=== PATIENT | female | born 1955 | race Caucasian/White ===

== ENCOUNTER → 2020-03-11 10:34 | Outpatient (BNVA) | payer MEDICARE, SELFPAY | PROVIDERS: PCP Internal Medicine; Referring Provider Internal Medicine; Visit Provider Internal Medicine | DX: E16.2 Hypoglycemia, unspecified (principal); E55.9 Vitamin D deficiency, unspecified; Z98.84 Bariatric surgery status; Z86.39 Personal history of other endocrine, nutritional and metabolic disease | CPT/HCPCS: 99202 ==

== ENCOUNTER 2020-03-12 07:08 | Outpatient (REF) | payer MEDICARE, BC, SELFPAY ==
[2020-03-12 08:22] LABS: Glucose Fasting 106 mg/dL (60-99)
[2020-03-12 08:29] LABS: Anion Gap 12 (12-20); Blood Urea Nitrogen 14 mg/dL (9-16); Calcium 8.5 mg/dL (8.4-10.2); Carbon Dioxide 30 mmol/L (22-29); Chloride 99 mmol/L (96-108); Estimated Glomerular Filt Rate > 60; Glucose Fasting 105 mg/dL (60-99); Potassium 4.2 mmol/l (3.3-5.1); Sodium 137 mmol/L (135-145)
[2020-03-12 08:52] LABS: Free T4 (Free Thyroxine) 1.01 ng/dL (0.71-1.85); Vitamin D 25-OH Total 56.9 ng/mL (>30)
[2020-03-12 10:46] LABS: Glucose 1 Hour 343 mg/dL
[2020-03-12 11:12] LABS: Glucose 2 Hour 71 mg/dL
[2020-03-12 12:34] LABS: Glucose 4 Hour 76 mg/dL
[2020-03-13 12:01] LABS: DHEA Sulfate 80 mcg/dL (12-133)
[2020-03-14 00:52] LABS: C Peptide 0.84 ng/mL (0.80-3.85)
[2020-03-15 19:46] LABS: Chromogranin A 74 ng/mL (25-140)
[2020-03-16 12:17] LABS: Insulin Level Total 2.5 uIU/mL
[2020-03-16 18:32] LABS: Adrenocorticotropic Hormone 27 pg/mL (6-50)
[2020-03-17 23:11] LABS: Proinsulin 5.7 pmol/L (< OR = 18.8)
[2020-03-18 04:06] LABS: Beta-Hydroxybutyrate 0.05 mmol/L
[2020-03-18 14:42] LABS: Insulinoma associated 2 aatb <5.4 U/mL (<5.4)
[2020-03-18 17:27] LABS: Insulin Auto Antibody <0.4 U/mL (<0.4)
[2020-03-23 19:09] LABS: Insulin Growth Factor 2 463 ng/mL (267-616)
[2020-03-24 12:02] LABS: Chlorpropamide None Detected; Glimepiride None Detected; Glipizide None Detected; Glyburide None Detected; Nateglinide None Detected; Pioglitazone None Detected; Repaglinide None Detected; Rosiglitazone None Detected; Tolazamide None Detected; Tolbutamide None Detected
== END 2020-03-12 07:09 | disposition home or self-care (01) ==
LOC: HO.LAB 07:08
PROVIDERS: PCP Internal Medicine; Visit Provider Internal Medicine
DX: E16.2 Hypoglycemia, unspecified (principal); E55.9 Vitamin D deficiency, unspecified; Z86.39 Personal history of other endocrine, nutritional and metabolic disease
CPT/HCPCS: 36415; 80048; 80337; 82010; 82024; 82306; 82533; 82627; 82952; 83525; 83789; 84206; 84439; 84443; 84681; 86316; 86337

== ENCOUNTER → 2020-04-27 08:32 | Outpatient (BNVA) | payer MEDICARE, BC, SELFPAY | PROVIDERS: PCP Internal Medicine; Referring Provider Internal Medicine; Visit Provider Internal Medicine | DX: Z13.89 Encounter for screening for other disorder (principal) | CPT/HCPCS: Q3014 ==

== ENCOUNTER 2020-07-13 16:41 | Outpatient (REF) | payer MEDICARE, BC, SELFPAY | END 2020-07-13 16:42 | disposition home or self-care (01) | LOC: HO.LNP 16:41 | PROVIDERS: Visit Provider Hospitalist | DX: Z20.822 Contact with and (suspected) exposure to COVID-19 (principal) | CPT/HCPCS: U0003; U0005 ==

== ENCOUNTER → 2020-08-19 07:34 | Outpatient (BNVA) | payer MEDICARE, BC, SELFPAY | PROVIDERS: PCP Internal Medicine; Visit Provider Internal Medicine | DX: E16.2 Hypoglycemia, unspecified (principal); E55.9 Vitamin D deficiency, unspecified; Z98.84 Bariatric surgery status; Z86.39 Personal history of other endocrine, nutritional and metabolic disease | CPT/HCPCS: 82947; 99212 ==

== ENCOUNTER 2021-02-11 08:27 | Outpatient (REF) | payer MEDICARE, BC, SELFPAY ==
[2021-02-11 10:12] LABS: Alanine Aminotransferase 36 U/L (0-31); Albumin Level 4.1 g/dL (3.5-5.0); Alkaline Phosphatase 77 U/L (39-117); Anion Gap 14 (12-20); Aspartate Amino Transferase 34 U/L (5-31); Bilirubin Total 0.5 mg/dL (0.0-1.0); Blood Urea Nitrogen 15 mg/dL (9-16); Calcium 9.5 mg/dL (8.4-10.2); Carbon Dioxide 29 mmol/L (22-29); Chloride 103 mmol/L (96-108); Estimated Glomerular Filt Rate > 60; Glucose Random 106 mg/dL (60-115); Potassium 4.5 mmol/L (3.3-5.1); Sodium 141 mmol/L (135-145); Total Protein 6.7 g/dL (6.5-8.0)
[2021-02-11 10:14] LABS: Estimated Average Glucose 117 mg/dL; Hemoglobin A1c % 5.7 %
== END 2021-02-11 08:28 | disposition home or self-care (01) ==
LOC: HO.LAB 08:27
PROVIDERS: PCP Internal Medicine; Visit Provider Internal Medicine
DX: Z86.39 Personal history of other endocrine, nutritional and metabolic disease (principal)
CPT/HCPCS: 36415; 80053; 83036

== ENCOUNTER → 2021-02-17 07:35 | Outpatient (BNVA) | payer MEDICARE, BC, SELFPAY | PROVIDERS: PCP Internal Medicine; Visit Provider Internal Medicine | CPT/HCPCS: Q3014 ==

== ENCOUNTER 2021-04-23 14:19 | Outpatient (REF) | payer MEDICARE, BC, SELFPAY ==
--- NOTE | ~2021-04-23 | XR_ITS ---
EXAMINATION: XR SHOULDER, LEFT CLINICAL INFORMATION: Pain in left shoulder. COMPARISON: None TECHNIQUE: AP external rotation, Grashey, scapular Y, and axillary views of the left shoulder. FINDINGS: Acromioclavicular Joint: Mild osteoarthritis manifested by marginal osteophytes. Glenohumeral Joint: Normal. Surrounding bone and soft tissues unremarkable. XR/XR shoulder LT min 2V IMPRESSION: Mild osteoarthritis of acromioclavicular joint.
== END 2021-04-23 14:20 | disposition home or self-care (01) ==
LOC: HO.HMGCX 14:19
PROVIDERS: PCP Internal Medicine; Visit Provider Internal Medicine
DX: M25.512 Pain in left shoulder (principal)
CPT/HCPCS: 73030

== ENCOUNTER → 2021-05-10 13:30 | Outpatient (BNVA) | payer MEDICARE, BC, SELFPAY | PROVIDERS: PCP Internal Medicine; Visit Provider Orthopaedic Surgery | DX: M25.512 Pain in left shoulder (principal); Z86.39 Personal history of other endocrine, nutritional and metabolic disease | CPT/HCPCS: 20610; 99212; J1100 ==

== ENCOUNTER 2021-07-08 08:00 | Outpatient (RCR) | payer MEDICARE, BC, SELFPAY ==
--- NOTE | 2021-05-26 17:40 | MHC.PT.EP ---
[facility] [place] [facility] [place] [facility] [place] [facility] [address] [phone] F: [phone] F: [phone] F: [phone] F: [phone] Physical Therapy Plan of Care Date of Evaluation: Date of Surgery: Diagnosis: Pain in L shoulder Assessment: Pt is a 65 y/o female referred to PT for eval and treat of L shoulder pain who presents with L shoulder dysfunction resulting in decreased tolerance and ability to perform reaching a high shelf, dressing pullovers, performing fitness activities, reaching her back pocket/ dressing and carrying objects of weight as well as disturbed sleep secondary to decreased UE strength, pain at L shoulder end range ROM, decreased posture, increased tissue tension and pain. Pt is deemed an appropriate candidate to receive skilled PT in order to address her physical limitations to improve her functional ability. Frequency and Duration: The patient will be seen 2x/ wk x 4 wks. Short Term Goals: Initiate HEP. 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 Pt will be able to place 2# object on high shelf with managed Sx. Improve SPADI questionnaire to by at least 13 points in order to demonstrate improved function. Treatment Plan: Modalities to reduce pain, spasms and effusion. Manual therapy to restore motion and function. Therapeutic exercise to improve strength and flexibility. Neuromuscular re-education for posture and balance. Therapeutic activities to return to functional activities of daily living. Electronically signed by: Alberto Rios PT Please sign and return to therapist. Thank you for your referral.
== END 2021-07-08 09:24 | disposition home or self-care (01) ==
LOC: HO.PTCHIC 08:00
PROVIDERS: PCP Internal Medicine; Visit Provider Orthopaedic Surgery
DX: M25.512 Pain in left shoulder (principal)
CPT/HCPCS: 97110; 97140; 97150; 97161

== ENCOUNTER 2021-10-19 06:42 | Outpatient (REF) | payer MEDICARE, BC, SELFPAY ==
[2021-10-19 07:31] LABS: Estimated Average Glucose 120 mg/dL; Hemoglobin A1c % 5.8 %
[2021-10-19 08:28] LABS: Alanine Aminotransferase 43 U/L (0-31); Albumin Level 4.1 g/dL (3.5-5.0); Alkaline Phosphatase 82 U/L (39-117); Anion Gap 12 (12-20); Aspartate Amino Transferase 36 U/L (5-31); Bilirubin Total 0.4 mg/dL (0.0-1.0); Blood Urea Nitrogen 19 mg/dL (9-16); Calcium 9.2 mg/dL (8.4-10.2); Carbon Dioxide 30 mmol/L (22-29); Chloride 102 mmol/L (96-108); Estimated Glomerular Filt Rate > 60; Glucose Random 101 mg/dL (60-115); Potassium 4.8 mmol/L (3.3-5.1); Sodium 139 mmol/L (135-145); Total Protein 6.8 g/dL (6.5-8.0)
[2021-10-19 08:36] LABS: Vitamin D 25-OH Total 55.4 ng/mL (>30)
== END 2021-10-19 06:43 | disposition home or self-care (01) ==
LOC: HO.LAB 06:42
PROVIDERS: PCP Internal Medicine; Visit Provider Internal Medicine
DX: E55.9 Vitamin D deficiency, unspecified (principal); E16.2 Hypoglycemia, unspecified
CPT/HCPCS: 36415; 80053; 82306; 83036

== ENCOUNTER → 2021-10-25 09:55 | Outpatient (BNVA) | payer MEDICARE, BC, SELFPAY | PROVIDERS: PCP Internal Medicine; Visit Provider Internal Medicine | DX: E16.2 Hypoglycemia, unspecified (principal); E55.9 Vitamin D deficiency, unspecified; Z86.39 Personal history of other endocrine, nutritional and metabolic disease; Z98.84 Bariatric surgery status | CPT/HCPCS: Q3014 ==

== ENCOUNTER 2022-04-19 06:27 | Outpatient (REF) | payer MEDICARE, BC, SELFPAY ==
[2022-04-19 07:50] LABS: Estimated Average Glucose 117 mg/dL; Hemoglobin A1c % 5.7 %
[2022-04-19 07:58] LABS: Alanine Aminotransferase 39 U/L (0-31); Albumin Level 4.5 g/dL (3.5-5.0); Alkaline Phosphatase 76 U/L (39-117); Anion Gap 13 (12-20); Aspartate Amino Transferase 34 U/L (5-31); Bilirubin Total 0.5 mg/dL (0.0-1.0); Blood Urea Nitrogen 16 mg/dL (9-16); Carbon Dioxide 32 mmol/L (22-29); Chloride 100 mmol/L (96-108); Estimated Glomerular Filt Rate > 60; Glucose Random 105 mg/dL (60-115); Potassium 4.5 mmol/L (3.3-5.1); Sodium 140 mmol/L (135-145); Total Protein 7.3 g/dL (6.5-8.0)
== END 2022-04-19 06:28 | disposition home or self-care (01) ==
LOC: HO.LAB 06:27
PROVIDERS: PCP Internal Medicine; Visit Provider Internal Medicine
DX: E16.2 Hypoglycemia, unspecified (principal)
CPT/HCPCS: 36415; 80053; 83036

== ENCOUNTER → 2022-04-25 09:51 | Outpatient (BNVA) | payer MEDICARE, BC, SELFPAY | PROVIDERS: PCP Internal Medicine; Visit Provider Internal Medicine | DX: E16.2 Hypoglycemia, unspecified (principal); E55.9 Vitamin D deficiency, unspecified; Z86.39 Personal history of other endocrine, nutritional and metabolic disease; Z98.84 Bariatric surgery status | CPT/HCPCS: 99212 ==

== ENCOUNTER 2022-11-13 22:22 | Observation (INO) | payer MEDICARE, BC, SELFPAY ==
--- NOTE | ~2022-11-13 | MR_ITS ---
EXAMINATION: MR ABDOMEN WITHOUT AND WITH CONTRAST CLINICAL INFORMATION: Possible IPMN. COMPARISON: MRCP performed earlier on same day. CT abdomen/pelvis 11/14/2022. TECHNIQUE: MR abdomen was performed without and with use of 5 mL intravenous Gadavist gadolinium contrast. Postcontrast images are performed in multiphase dynamic sequences. FINDINGS: LUNG BASES: The visualized lung bases are unremarkable. LIVER, GALLBLADDER, AND BILIARY TREE: There is some degree of signal loss in the [id number] dual echo images suggesting the presence of hepatic steatosis. The liver is otherwise normal in size and shape. No discrete focal liver lesion. Cholecystectomy. Roqz-ba-okipiwgx intrahepatic and extrahepatic biliary ductal dilatation; the common bile duct measures up to 0.9 cm in diameter and the common hepatic duct measures up to 1.2 cm in diameter. No discrete choledocholithiasis, luminal narrowing or abnormal enhancement in the biliary tree. PANCREAS: Redemonstration of significant dilatation of the main pancreatic duct measuring up to 1 cm in diameter with abrupt cut-off at the level of the head/neck junction, axial image 41 series 103. The main pancreatic duct at the level of the uncinate process and head is nondilated. There is some equivocal hyperenhancement of the pancreatic parenchyma adjacent to the transition point more noticeable on the delayed postcontrast images (image 45 series 103) immediately anterior to the main portal vein to the right of the SMV. The pancreatic parenchyma surrounding the dilated main duct is atrophic. SPLEEN: Normal. ADRENAL GLANDS: Normal. KIDNEYS AND URETERS: The kidneys are normal in size, shape, and enhance symmetrically. No hydronephrosis. No perinephric stranding. GASTROINTESTINAL TRACT: No significant bowel dilatation. No ascites. ABDOMINAL WALL: No significant hernia is appreciated. LYMPH NODES: No lymphadenopathy. VASCULAR: Normal caliber abdominal aorta. OSSEOUS STRUCTURES: Marrow signal normal. MR/MR abdomen wo/w con IMPRESSION: Significant dilatation of the main pancreatic duct with abrupt cut-off at the level of the head/neck junction. There is some equivocal differential hyperenhancement of the pancreatic parenchyma adjacent to the transition point. Findings are worrisome for an underlying stricture/mass such as pancreatic adenocarcinoma leading to downstream obstruction. An additional differential consideration includes main type intraductal papillary mucinous neoplasm, as no clear enhancing extraductal mass is noted, although such an abrupt transition is somewhat atypical for this latter diagnosis. Referral to GI oncology and further evaluation with EUS is recommended. [id number] intrahepatic and extrahepatic biliary ductal dilatation is nonspecific and could be associated with post-cholecystectomy state. The main pancreatic duct at the level of the head and uncinate process is nondilated. Hepatic steatosis.
[2022-11-13 22:25] VITALS: BP 170/68; PULSE 74; O2SAT 98
[2022-11-13 22:28] VITALS: BP 151/85; PULSE 83; RESP 18; TEMP 36.7; O2SAT 97; BMI 25.1
[2022-11-14] VITALS (8 sets, daily range): BP systolic 106–166; BP diastolic 63–93; PULSE 58–95; RESP 14–20; TEMP 36.7–37; O2SAT 95–99
--- NOTE | 2022-11-14 01:24 | ED.ABDPAIN ---
HPI - Abdominal Pain General Chief Complaint: Abdominal Pain Stated Complaint: abd and back pain Time Seen by Provider: 11/14/22 00:25 Source: patient and family () Mode of arrival: ambulatory Limitations: no limitations History of Present Illness HPI narrative: 64-year-old female who presents emergency department for evaluation right upper quadrant and right flank pain. The patient states that at 20:00 hours, she had a sudden onset of right upper quadrant pain. She describes the pain is a gripping pain which was initially moderate but then became severe and was 9/10 at its worst. The pain did radiate to her back. She had associated nausea with no vomiting. She states that she did have a soft bowel movement prior to coming to the emergency department she denied fever, chills, rhinorrhea, sore throat, cough, chest pain, shortness of breath. She denied frequency, urgency or dysuria. Patient states that the pain was severe and she could not get comfortable. Patient states the pain was similar to kidney stone pain that she had 20 years prior. Surgical history is significant for gastric bypass 20 years prior, , cholecystectomy. Related Data Home Medications Medication Instructions Recorded Confirmed acetaminophen 650 mg 650 mg PO Q12H 03/11/20 07/29/22 tablet,extended release (Tylenol Arthritis Pain) calcium carbonate 600 mg calcium 600 mg PO BID 03/11/20 07/29/22 (1,500 mg) tablet glucosamine sulfate 500 mg tablet 500 mg PO BID 03/11/20 07/29/22 (Glucosamine) omega-3 fatty acids 1,000 mg 1,000 mg PO DAILY 03/11/20 07/29/22 capsule melatonin 10 mg capsule 10 mg PO BEDTIME PRN 04/27/20 07/29/22 ascorbate calcium (vitamin C) 500 500 mg PO DAILY 07/23/21 07/29/22 mg tablet multivitamin (Daily Multi-Vitamin 1 tab PO DAILY 07/23/21 07/29/22 tablet) magnesium 200 mg tablet 200 mg PO DAILY 07/29/22 07/29/22 Previous Rx's Medication Instructions Recorded nystatin 100,000 unit/gram topical 1 appl topical DAILY 30 days #30 07/29/22 cream grams acarbose 25 mg tablet 50 mg PO TID 30 days #180 tabs 11/09/22 Allergies Allergy/AdvReac Type Severity Reaction Status Date / Time ibuprofen [IBUPROFEN] Allergy Intermediate ANKLE/FOOT Verified 07/29/22 13:29 SWELLING minocycline Allergy Unknown Hives Verified 07/29/22 13:29 Review of Systems Review of Systems Yes all other systems are reviewed and are negative [facility] Past Medical History [facility] Narrative: Past medical history: Reviewed below, she also has a history of GERD and kidney stone in the past. Social history: She is , her is here in the emergency department with her. She denies tobacco use. She occasionally drinks alcohol. She denies drug use. Medical History History of diabetes mellitus Hypoglycemia Vitamin D deficiency Surgical History History of bariatric surgery Hx of section Hx of cholecystectomy Hx of colonoscopy with polypectomy Hx of repair of right rotator cuff Hx of tonsillectomy Hx of tubal ligation Family History Family History Father No problems noted. Mother No problems noted. Social History Social History Housing: House Alcohol intake: current Alcohol intake frequency: holidays/special occasions only Alcohol type: wine Patient Tobacco Use Status: Never used Tobacco Advance Directives: No Advance Directives Information Provided: Yes Current occupational status: retired Physical Exam ED Vital Signs: Vital Signs - 24 hr 11/13/22 22:28 11/14/22 00:47 11/14/22 02:15 Temperature 98.0 F 98.1 F Pulse Rate 83 83 Respiratory Rate 18 18 16 Blood Pressure 151/85 H 166/93 H Pulse Oximetry 97 97 Oxygen Delivery Method Room Air Room Air 11/14/22 02:18 Temperature Pulse Rate Respiratory Rate 14 Blood Pressure Pulse Oximetry Oxygen Delivery Method BMI result Body Mass Index 25.1 Const General: cooperative and no acute distress Orientation/consciousness: oriented to person and oriented to place Limitations: no limitations HENMT Head: Yes normal to inspection, Yes normocephalic and Yes atraumatic Ears: external ears normal General nose exam: Normal external nose present Face and sinus: Yes normal facial exam Mouth: Normal oral and palatal mucosa present Throat: Yes posterior oropharynx normal Eyes General: appearance normal, both eyes and all related structures Pupils: Equal, round and reactive pupils present Neck Neck: Yes normal visual inspection, Yes no lymphadenopathy, Yes trachea midline and Yes supple Chest Chest palpation & inspection: normal inspection of the chest and normal palpation of entire chest wall Resp Effort & Inspection: normal respiratory effort and able to speak in complete sentences Auscultation: clear to auscultation bilaterally Cardio Rate: regular rate Rhythm: regular rhythm Heart sounds: S1 normal heart sound present, S2 normal heart sound present and no murmurs GI Other: Patient's abdomen is soft, nondistended, she has normoactive bowel sounds, she has moderate right upper quadrant tenderness, mild to moderate epigastric tenderness, moderate right lower quadrant tenderness. There is no rebound, no voluntary or involuntary guarding General: Yes no CVA tenderness Back/Spine/Pelvis Back: no CVA tenderness Skin General skin exam: no rashes or lesions noted Neuro General: oriented to person and oriented to place Cranial nerves: Yes CN's II-XII intact bilaterally and Yes Equal, round and reactive pupils present Cognition (Neuro): normal cognition Motor exam (neuro): 5/5 motor strength present throughout Extrem General: Yes normal to inspection Psych Appearance: grossly normal Speech and movement: Normal speech and movement present Affect: normal affect Attitude: cooperative Medical Decision Making Medical Decision Making MDM Narrative: 67-year-old female who presents emergency department for evaluation of sudden onset of right upper quadrant and epigastric pain radiating to her right back, pain started at 22:00 hours. Pain was initially moderate but then became severe, patient reports that felt similar to her kidney stone pain. Patient's past surgical history significant for cholecystectomy and gastric bypass surgery. Vital signs revealed elevated blood pressure 151/85 otherwise unremarkable. Patient's abdominal exam did reveal right upper quadrant, epigastric,right lower quadrant and epigastric tenderness. The following tests were ordered by me: CBC, CMP, lipase, troponin, urinalysis, 12 EKG, CT scan of the abdomen pelvis with IV contrast. Patient's pain was treated with morphine 4 mg IV, nausea was treated with Zofran 4 mg IV. She is also ordered to get normal saline x1 L. 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 The radiologist noted a few borderline dilated loops of small bowel in the right upper quadrant without associated point of transition and there is some mass effect upon the distal superior mesenteric pain related to these dilated loops. There was no evidence for acute pancreatitis but the patient does have a dilated main pancreatic duct with abrupt cutoff in the pancreatic neck with atrophy of the pancreatic parenchyma surrounding the dilated duct. The radiologist was concerned that this could represent an intraductal malignancy. And recommended MRI/MRCP. Given the severity of her pain, I do not think that the patient be discharged, I will discuss these findings with the covering surgeon. 0231: I did discuss the patient's presentation with the covering surgeon, Dr. Betancourt He recommended that the patient be admitted for further evaluation of her pain. I did order blood cultures x2, PT/INR, PTT, lactic acid. Differential Diagnosis Differential Diagnoses: The differential diagnosis associated with the presentation includes 0232: Differential diagnosis includes but is not limited to biliary colic, gastritis, renal colic, ureteral stone, internal hernia secondary to gastric bypass, ischemic bowel, pyelonephritis, UTI Admission/Observation Consideration of admission/observation: Escalation of care including admission/observation considered Consult Healthcare Provider Management of the patient was discussed with: Case Resolution Specialist (Covering surgeon, Dr. Betancourt) Lab Data MDM Lab Attestation statement: I reviewed the patient's lab results. My independent interpretation patient's laboratory evaluation as follows: CBC was normal, BUN is elevated 25. Glucose elevated 133. AST and ALT are elevated 57 and 75-this is chronic. Lipase was normal pain high sensitive troponin I was below detectable limits. 11/13/22 22:47 11/13/22 22:47 Labs: Lab Results 11/13/22 11/13/22 11/13/22 Range/Units 22:47 22:47 22:47 WBC 8.5 (4.8-10.8) X10*3/uL RBC 4.40 (4.20-5.50) X10*6/uL Hgb 13.9 (12.0-16.0) g/dl Hct 41.1 (37.0-47.0) % MCV 93.4 (80.0-98.0) fL MCH 31.6 (27.0-33.0) pg MCHC 33.8 (31.0-35.0) g/dl RDW 12.7 (11.0-16.0) % Plt Count 202 (160-400) X10*3/uL MPV 9.6 (9.4-12.3) fL Absolute Nucleated RBC 0.000 (0.0-0.012) X10*3/uL Nucleated RBC % (auto) 0.0 (0.0-0.2) /100WBC Sodium 136 (135-145) mmol/L Potassium 4.7 (3.3-5.1) mmol/L Chloride 97 (96-108) mmol/L Carbon Dioxide 29 (22-29) mmol/L Anion Gap 15 (12-20) BUN 25 H (9-16) mg/dL Creatinine 0.87 (0.5-1.4) mg/dL Estim Creat Clear Calc 39.0 Estimated GFR > 60 Random Glucose 133 H (60-115) mg/dL Calcium 10.0 (8.4-10.2) mg/dL Total Bilirubin 0.5 (0.0-1.0) mg/dL Direct Bilirubin 0.1 (0.0-0.5) mg/dL AST 57 H (5-31) U/L ALT 75 H (0-31) U/L Alkaline Phosphatase 70 (39-117) U/L Troponin I High Sens < 2.7 (<3.5-17.0) ng/L Total Protein 7.7 (6.5-8.0) g/dL Albumin 4.5 (3.5-5.0) g/dL Lipase 17 (8-78) U/L Independent Interpretation I performed an independent interpretation of an: EKG Interpretation: My interpretation of patient's 12 EKG done at 22:33 hours is as follows: He normal sinus rhythm rate of 77, Q-wave in lead 3, V1 through V2 with small R-wave in V3 consistent with anterior infarct, no ST segment elevation, no ST segment depression, no PACs, no PVCs. Compared to EKG dated 03/18/2018 Q-waves in 3, V1 and V2 are old. Radiology Impression Discussion of test interpretation with radiology: I discussed test interpretation with the radiologist Radiologist Impression: CT abdomen pelvis w IV con IMPRESSION: * Dilatation of the main pancreatic duct with abrupt cut off in the pancreatic neck. The pancreatic parenchyma surrounding the dilated pancreatic duct is atrophic. Findings are concerning for pancreatic neoplasm, specifically a main duct-IPMN. Recommend MRI/MRCP without and with contrast for further evaluation. * No bowel obstruction. There are a few borderline dilated loops of small bowel in the right upper quadrant without point of transition. Associated inspissation of succus entericus noted. Findings may relate to hypomotility, though occasionally can be seen in the setting of small intestinal bacterial overgrowth. * Mild constipation * Cholecystectomy. * New but chronic appearing compression fracture involving the superior endplate of L4. This critical result was discussed with Dr Lai at 11/14/2022 1:44 AM and it was ascertained that the content and urgency of the report was understood at the time of direct communication. Dictated By:Ricardo Catalan MD Independent Historian Clinical information obtained from an independent historian. History obtained from or confirmed by: Spouse Medications Administered Discontinued Medications Generic Name Dose Route Start Last Admin Trade Name Freq PRN Reason Stop Dose Admin Sodium Chloride 1,000 mls @ 999 mls/hr 11/14/22 00:39 11/14/22 00:48 Ns IV 11/14/22 01:39 999 mls/hr .Q1H1M STA Administration Iohexol 85 ml 11/14/22 01:14 11/14/22 01:14 Iohexol 350 Mg/Ml 100 Ml Infus..Btl IV 11/14/22 01:15 85 ml ONCE ONE Administration Morphine Sulfate 4 mg 11/14/22 00:39 11/14/22 00:47 Morphine Sulfate 4 Mg/Ml Cartridge IVPUSH 11/14/22 00:40 4 mg ONCE STA Administration Protocol Morphine Sulfate 4 mg 11/14/22 02:04 11/14/22 02:18 Morphine Sulfate 4 Mg/Ml Cartridge IVPUSH 11/14/22 02:05 4 mg ONCE STA Administration Protocol Ondansetron HCl 4 mg 11/14/22 00:39 11/14/22 00:47 Ondansetron Hcl 4 Mg/2 Ml Vial IVPUSH 11/14/22 00:40 4 mg ONCE ONE Administration Critical Care Time Critical Care Time Critical Care Time: Yes Total Critical Care Time: 30 Attestation: Critical Care: The patient was critically ill with a high probability of imminent or life threatening deterioration. I spent greater than 30 minutes of discontinuous time evaluating the patient,delivering critical care at the bedside, discussing and evaluating pertinent data with consultants. Critical care time does not include time spent performing separately billable procedures or teaching. Total time spent performing critical care was 30 minutes. Discharge Plan Discharge Clinical Impression: Partial obstruction of small intestine, Dilated pancreatic duct Abdominal pain Qualifiers: Abdominal location: right upper quadrant Qualified Code(s): R10.11 - Right upper quadrant pain Patient Disposition: Admitted As Inpatient
--- NOTE | 2022-11-14 02:44 | PM.IMHP ---
History of Present Illness Date of Service: 11/14/22 Chief Complaint: Abdominal Pain This is a 67-year-old female with pertinent history of bariatric surgery on nutritional supplementation who presents to the emergency department for evaluation of right upper quadrant/epigastric pain. Patient states it was sudden in onset around 20:00 when she had pain in the right upper quadrant and epigastric region. It was nonradiating, constant and progressive. Patient had associated nausea but no fever, chills or vomiting. Patient states she had similar right flank pain when she had kidney stone about 20 years ago. She denies chest discomfort, palpitations, shortness of breath, changes in urinary or bowel habits. She reports intentional weight loss of 20 lb over the last 10 months. No personal history of cancer. Had breast biopsy x2 negative In the emergency department, imaging concerning for pancreatic neoplasm. General surgery was consulted who requested admission. Review of Systems Constitutional: Constitutional: Reports weight loss Cardiovascular: Cardiovascular: Reports no additional cardiovascular complaints Respiratory: Respiratory: Reports no additional respiratory complaints Gastrointestinal: Gastrointestinal: Reports abdominal pain and Reports nausea Genitourinary: Genitourinary: Reports no additional female genitourinary complaints Musculoskeletal: Musculoskeletal: Reports no additional musculoskeletal complaints [facility] Medical History History of diabetes mellitus Hypoglycemia Vitamin D deficiency Family History Father No problems noted. Mother No problems noted. Surgical History History of bariatric surgery Hx of section Hx of cholecystectomy Hx of colonoscopy with polypectomy Hx of repair of right rotator cuff Hx of tonsillectomy Hx of tubal ligation Social History Housing: House Alcohol intake: current Alcohol intake frequency: holidays/special occasions only Alcohol type: wine Patient Tobacco Use Status: Never used Tobacco Advance Directives: No Advance Directives Information Provided: Yes Nutrition Risks: No Nutritional Risk Current occupational status: retired Meds Allergies Allergy/AdvReac Type Severity Reaction Status Date / Time ibuprofen [IBUPROFEN] Allergy Intermediate ANKLE/FOOT Verified 07/29/22 13:29 SWELLING minocycline Allergy Unknown Hives Verified 07/29/22 13:29 Home Medications Medication Instructions Recorded Confirmed Last Taken Type acetaminophen 650 mg 650 mg PO Q12H 03/11/20 07/29/22 Unknown History tablet,extended release (Tylenol Arthritis Pain) calcium carbonate 600 mg calcium 600 mg PO BID 03/11/20 07/29/22 Unknown History (1,500 mg) tablet glucosamine sulfate 500 mg tablet 500 mg PO BID 03/11/20 07/29/22 Unknown History (Glucosamine) omega-3 fatty acids 1,000 mg 1,000 mg PO DAILY 03/11/20 07/29/22 Unknown History capsule melatonin 10 mg capsule 10 mg PO BEDTIME PRN 04/27/20 07/29/22 Unknown History ascorbate calcium (vitamin C) 500 500 mg PO DAILY 07/23/21 07/29/22 Unknown History mg tablet multivitamin (Daily Multi-Vitamin 1 tab PO DAILY 07/23/21 07/29/22 Unknown History tablet) magnesium 200 mg tablet 200 mg PO DAILY 07/29/22 07/29/22 Unknown History Physical Exam Vital Signs and Narrative: Vital Signs: Last Vital Signs Temp 98.1 F 11/14/22 02:15 Pulse 83 11/14/22 02:15 Resp 14 11/14/22 02:18 BP 166/93 H 11/14/22 02:15 Pulse Ox 97 11/14/22 02:15 O2 Del Method Room Air 11/14/22 02:15 BMI result Body Mass Index 25.1 Middle-aged female lying in bed in no distress Neck supple, no JVD Regular rate and rhythm, S1-S2 heard Regular breath sounds bilaterally, no wheezing or crackles appreciated Abdomen with right upper quadrant/epigastric tenderness with mild palpation, no rigidity, no rebound tenderness Patient is awake, alert and oriented to self, place, time and person ; no focal motor deficit Psych: Normal mood No pedal edema Results Labs 11/13/22 22:47 11/13/22 22:47 Labs: Laboratory Results - last 24 hr 11/13/22 11/13/22 11/13/22 22:47 22:47 22:47 MCV 93.4 MCH 31.6 MCHC 33.8 RDW 12.7 Plt Count 202 MPV 9.6 Absolute Nucleated RBC 0.000 Nucleated RBC % (auto) 0.0 Anion Gap 15 Estim Creat Clear Calc 39.0 Estimated GFR > 60 Random Glucose 133 H Calcium 10.0 Total Bilirubin 0.5 Direct Bilirubin 0.1 AST 57 H ALT 75 H Alkaline Phosphatase 70 Troponin I High Sens < 2.7 Total Protein 7.7 Albumin 4.5 Lipase 17 Imaging Radiologist's Impressions: Impressions Abdomen/Pelvis CT 11/14/22 01:14 IMPRESSION: * Dilatation of the main pancreatic duct with abrupt cut off in the pancreatic neck. The pancreatic parenchyma surrounding the dilated pancreatic duct is atrophic. Findings are concerning for pancreatic neoplasm, specifically a main duct-IPMN. Recommend MRI/MRCP without and with contrast for further evaluation. * No bowel obstruction. There are a few borderline dilated loops of small bowel in the right upper quadrant without point of transition. Associated inspissation of succus entericus noted. Findings may relate to hypomotility, though occasionally can be seen in the setting of small intestinal bacterial overgrowth. * Mild constipation * Cholecystectomy. * New but chronic appearing compression fracture involving the superior endplate of L4. This critical result was discussed with Dr Lai at 11/14/2022 1:44 AM and it was ascertained that the content and urgency of the report was understood at the time of direct communication. Assessment and Plan (1) Abdominal pain: Qualifiers: Abdominal location: right upper quadrant Qualified Code(s): R10.11 - Right upper quadrant pain Status: Acute Plan This is a 67-year-old female with pertinent history of bariatric surgery on nutritional supplementation who presents to the emergency department for evaluation of right upper quadrant/epigastric pain. #. Abdominal pain, with imaging concerning for pancreatic neoplasm. Will admit patient and initiate IV opioid p.r.n. for symptomatic relief. Obtaining MRCP to further delineate anatomy. General surgery was consulted from the ER, appreciate assistance. Will keep patient NPO #. History of bariatric surgery her nutritional supplementation #. History of diabetes mellitus, now on acarbose to prevent hypoglycemia Med rec pending DVT prophylaxis: SCDs Full code Time Spent With Patient Time: Total time managing care of this patient today ____ minutes. Quality Stroke Does the patient have a stroke diagnosis?: No VTE Prior VTE?: No VTE Risk Level:: Medical - moderate - high VTE Device Contraindication: N/A - Device Ordered VTE Drug Contraindication: Treatment Not Indicated
--- NOTE | 2022-11-14 04:30 | PC.NURSE ---
This typewriter assembly and parts inspector assumed care of this Pt at this time. Pt A&Ox4, reports intermittent 3/10 RUQ ABD pain, radiating to back, ABD tender to touch to RUQ, + bowel sounds x 4, reports last BM was prior to coming into hospital. States effectiveness to pain medication given by previous nurse. Pt ambulated to bed from stretcher independently with steady gait.
[2022-11-14 05:51] LABS: Anion Gap 10 (12-20); Blood Urea Nitrogen 16 mg/dL (9-16); Calcium 8.8 mg/dL (8.4-10.2); Carbon Dioxide 27 mmol/L (22-29); Chloride 102 mmol/L (96-108); Estimated Glomerular Filt Rate > 60; Glucose Random 131 mg/dL (60-115); Potassium 4.4 mmol/L (3.3-5.1); Sodium 135 mmol/L (135-145)
--- NOTE | 2022-11-14 07:17 | PM.CNGS ---
History of Present Illness Consult details Consult date: 11/14/22 Reason for consult: abdominal pain Narrative: The patient is a 67-year-old woman who is status post open Angy-en-Y gastric bypass approximately 20 years ago at [facility]. She last followed up with her provider April,. Patient reports her heaviest weight was 224 lb and she has had successful weight loss with her typical weight being around 107 lb, fluctuating slightly. She also reports a history of kidney stones and began to experience back and right upper quadrant pain that was similar to her prior kidney stone, so she presented to the emergency room for evaluation. She had a CT of the abdomen and pelvis performed that had some nonspecific findings and I was asked to help coordinate her care given her prior open Angy-en-Y gastric bypass. This morning, the patient reports she is much better. She denies any pain at all in further denies any chest pain, difficulty breathing, shortness of breath. She notes that she had previously been diagnosed with type 2 diabetes which has been in remission since her weight loss and gastric bypass. She notes she is seeing an garment presser due to episodes of hypoglycemia. She denies any nicotine use and is never had a marginal ulcer. Other than her open gastric bypass, her only other intra-abdominal operation it was a laparoscopic cholecystectomy about 2 years after her bypass. Patient reports a family history of her father having some sort of a head and neck cancer that was metastatic. She notes he was a smoker. There is also an extensive history of type 2 diabetes, renal failure and vascular disease related to type 2 diabetes and obesity. She denies any known history of GI malignancy in siblings or parents but notes that her son, who has Crohn's disease, had a small-bowel resection for small-bowel cancer. The patient acknowledges some transient constipation that has occurred ever since surgery. But she notes her last normal bowel movement was yesterday before coming to the hospital. There was no diarrhea, blood or urgency, just a regular bowel movement for her. Review of Systems Review of Systems: Yes all other systems are reviewed and are negative Constitutional: Constitutional: Reports as per [facility] Past Medical History Medical History History of diabetes mellitus Hypoglycemia Vitamin D deficiency Family History Family History Father No problems noted. Mother No problems noted. Surgical History Surgical History History of bariatric surgery Hx of section Hx of cholecystectomy Hx of colonoscopy with polypectomy Hx of repair of right rotator cuff Hx of tonsillectomy Hx of tubal ligation Social History Social History Housing: House Alcohol intake: current Alcohol intake frequency: holidays/special occasions only Alcohol type: wine Patient Tobacco Use Status: Never used Tobacco Advance Directives: No Advance Directives Information Provided: Yes Nutrition Risks: No Nutritional Risk Current occupational status: retired Meds Allergies Allergy/AdvReac Type Severity Reaction Status Date / Time ibuprofen [IBUPROFEN] Allergy Intermediate ANKLE/FOOT Verified 07/29/22 13:29 SWELLING minocycline Allergy Unknown Hives Verified 07/29/22 13:29 Active Medications: Current Medications Acetaminophen (Acetaminophen 325 Mg Tablet) 650 mg PO Q6H PRN PRN Reason: Pain, Mild (Pain Scale 1-3) Melatonin (Melatonin 3 Mg Tablet) 6 mg PO BEDTIME PRN PRN Reason: Insomnia Morphine Sulfate (Morphine Sulfate 4 Mg/Ml Cartridge) 4 mg IVPUSH Q4H PRN; Protocol PRN Reason: Pain, Severe (Pain Scale 7-10) Ondansetron HCl (Ondansetron Hcl 4 Mg/2 Ml Vial) 4 mg IVPUSH Q8H PRN PRN Reason: Nausea and Vomiting Pharmacy Consult (Consult Rx Perform Med Rec) 1 each MISCELLANE ONCE PRN PRN Reason: Consult order Sodium Chloride (0.9 % Sodium Chloride Flush 3 Ml Syringe) [facility] Medications Medication Instructions Recorded Confirmed Last Taken Type acetaminophen 650 mg 650 mg PO Q12H 03/11/20 07/29/22 Unknown History tablet,extended release (Tylenol Arthritis Pain) calcium carbonate 600 mg calcium 600 mg PO BID 03/11/20 07/29/22 Unknown History (1,500 mg) tablet glucosamine sulfate 500 mg tablet 500 mg PO BID 03/11/20 07/29/22 Unknown History (Glucosamine) omega-3 fatty acids 1,000 mg 1,000 mg PO DAILY 03/11/20 07/29/22 Unknown History capsule melatonin 10 mg capsule 10 mg PO BEDTIME PRN 04/27/20 07/29/22 Unknown History ascorbate calcium (vitamin C) 500 500 mg PO DAILY 07/23/21 07/29/22 Unknown History mg tablet multivitamin (Daily Multi-Vitamin 1 tab PO DAILY 07/23/21 07/29/22 Unknown History tablet) magnesium 200 mg tablet 200 mg PO DAILY 07/29/22 07/29/22 Unknown History Physical Exam Vital Signs: Vital Signs: Last Vital Signs Temp 98.1 F 11/14/22 06:00 Pulse 77 11/14/22 06:00 Resp 16 11/14/22 06:00 BP 113/63 11/14/22 06:00 Pulse Ox 96 11/14/22 06:00 O2 Del Method Room Air 11/14/22 06:00 BMI result Body Mass Index 25.1 The patient is non-toxic & in good spirits NC/AT, PERRLA, EOMI Mood, affect & judgment all appear appropriate Sclera anicteric conjunctiva pink and moist Oropharynx is clear with no aphthous ulcers, Mallampati class 4, mucous membranes moist Neck is supple with no masses, adenopathy or bruits Thyroid is nontender and free of dominant masses Heart is regular, normal S1-S2 no rubs or murmurs Lungs are clear and equal anteriorly with no audible wheezing, rubs or dullness to percussion Abdomen is overweight with no demonstrable incisional hernias. No HSM, rebound, rigidity, guarding, masses or bruits are present. Her abdomen is nontender at the time of exam this morning. Rectal exam is deferred Skin has good turgor and is free of rashes Extremities free of cyanosis clubbing edema Results Labs 11/14/22 05:20 11/14/22 05:20 Labs: Abnormal lab results 11/13/22 11/14/22 11/14/22 Range/Units 22:47 02:52 05:20 RBC 3.91 L (4.20-5.50) X10*6/uL Hct 36.3 L (37.0-47.0) % Neut % (Auto) 78.6 H (45-73) % Lymph % (Auto) 16.7 L (20-40) % Anion Gap (12-20) BUN 25 H (9-16) mg/dL Random Glucose 133 H (60-115) mg/dL AST 57 H (5-31) U/L ALT 75 H (0-31) U/L Ur Leukocyte Esterase Trace H (Negative) 11/14/22 Range/Units 05:20 RBC (4.20-5.50) X10*6/uL Hct (37.0-47.0) % Neut % (Auto) (45-73) % Lymph % (Auto) (20-40) % Anion Gap 10 L (12-20) BUN (9-16) mg/dL Random Glucose 131 H (60-115) mg/dL AST (5-31) U/L ALT (0-31) U/L Ur Leukocyte Esterase (Negative) Short CBC 11/13/22 11/14/22 Range/Units 22:47 05:20 WBC 8.5 8.5 (4.8-10.8) X10*3/uL Hgb 13.9 12.2 (12.0-16.0) g/dl Hct 41.1 36.3 L (37.0-47.0) % Plt Count 202 193 (160-400) X10*3/uL BMP 11/13/22 11/14/22 22:47 05:20 Sodium 136 135 Potassium 4.7 4.4 Chloride 97 102 Carbon Dioxide 29 27 BUN 25 H 16 Creatinine 0.87 0.79 Calcium 10.0 8.8 D Liver Function 11/13/22 Range/Units 22:47 Total Bilirubin 0.5 (0.0-1.0) mg/dL Direct Bilirubin 0.1 (0.0-0.5) mg/dL AST 57 H (5-31) U/L ALT 75 H (0-31) U/L Alkaline Phosphatase 70 (39-117) U/L Albumin 4.5 (3.5-5.0) g/dL Urine 11/14/22 Range/Units 02:52 Urine Color Yellow Urine Appearance Clear Urine pH 7.5 (5.0-9.0) Ur Specific [place] 1.025 (1.005-1.025) Urine Protein Negative (Neg-Trace) mg/dL Urine Glucose (UA) Negative (Negative) mg/dL All other labs normal. Imaging Abdomen CT scan report/results: report reviewed and image reviewed CT scan - pelvis: report reviewed and image reviewed Additional studies: MRCP pending CT abdomen and pelvis: There is some scant bubbles of air in the gastric remnant; no oral contrast was given. There is no gastro J edema or bubbles of free air to suspect chronic inflammation or also related issues. In addition, the patient is not anemic. Assessment and Plan (1) Abdominal pain: Qualifiers: Abdominal location: right upper quadrant Qualified Code(s): R10.11 - Right upper quadrant pain Status: Acute (2) Dilated pancreatic duct: Status: Acute (3) History of bariatric surgery: Status: Acute (4) Hypoglycemia: Status: Acute Plan An MRCP is currently pending regarding evaluation of the dilated pancreatic duct which could be due to intraductal obstruction or malignancy. This was discussed with the patient. The patient is not anemic, does not use nicotine but is still at risk for a marginal ulcer. Should the MRCP be unrevealing, upper endoscopy or an upper GI may be helpful to elucidate the patient's pain. I will order Protonix in the meantime and continue to follow. Please call me if there are any specific questions. The patient does note the longstanding relationship with [facility] and stated that she may be interested in evaluation there on an outpatient basis. We will discuss this afternoon. There is no evidence of an internal hernia or significant intra-abdominal pathology to mandate operative exploration. The patient's lactic acid was normal at presentation. Patient's urinalysis is inconsistent with another kidney stone, nor is the CT. Time Spent With Patient Time: Total time managing care of this patient today ____ minutes. Procedures Date of Service Date of Service: 11/14/22
[2022-11-14 08:25] LABS: Alanine Aminotransferase 57 U/L (0-31); Albumin Level 3.6 g/dL (3.5-5.0); Alkaline Phosphatase 62 U/L (39-117); Aspartate Amino Transferase 39 U/L (5-31); Bilirubin Direct 0.1 mg/dL (0.0-0.5); Bilirubin Total 0.5 mg/dL (0.0-1.0); Total Protein 6.1 g/dL (6.5-8.0)
--- NOTE | 2022-11-14 08:27 | PHA.MEDREC ---
Pharmacy Consult ? Medication Reconciliation Pharmacy has completed the medication reconciliation.
--- NOTE | 2022-11-14 11:00 | PC.NURSE ---
assumed care of this pt at 0700. pt a&o x4, ambulatory, reports 4/10 back pain and a sore throat. MRI complete and pt currently getting washed up at bedside. pt in no apparent distress. rr even/unlabored. wctm
--- NOTE | 2022-11-14 12:06 | PM.GICN ---
History of Present Illness Data of Consult Service Date: 11/14/22 Requesting physician: Layo Fisher Primary Care Provider: Unknown Physician HPI Reason for consult: RUQ pain, possible IPMN 67 YF with history of bariatric surgery on nutritional supplementation seen at [facility] on 11/14/22 for evaluation of right upper quadrant/epigastric pain.? Patient reports sudden onset of RUQ around 8 pm last night. Pain was 10/10 in intensity, squeezing in character and came in waves. (Pain was initially similar to abd pain associated with kidney stones 20 yrs ago) Pt denies any clear precipitating factors. She had her usual food food for dinner at 5 pm. Pt took 2 TUMS and back pain started. Pt denies diarrhea or constipation and reports having a soft BM while she was having the pain. Patient had associated nausea but no fever, chills or vomiting.? She denies chest discomfort, palpitations, shortness of breath, changes in urinary or bowel habits.? Pt denies heartburn or dysphagia She reports intentional weight loss of 30 lb over the last 10 months.? No personal history of cancer.? Had breast biopsy x2 negative Surgical history is significant for gastric bypass 20 years prior, , cholecystectomy. Pt denies smoking and drinks one alcoholic drink in a month and denies past ETOH abuse. 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 Labs showed normal lipase and mild elevation of AST and ALT (stable over the past few years) Pt was treated with IV pain medication and admitted for further management. She reports abdominal pain had resolved when she woke up this morning. Patient denies known family history of pancreatic cancer. Her son has Crohn's disease and was diagnosed with small-bowel cancer and treated with surgery and chemo 11/14/[address] SCAN SHOWED: ?Dilatation of the main pancreatic duct with abrupt cut off in the pancreatic neck. The pancreatic parenchyma surrounding the dilated pancreatic duct is atrophic. Findings are concerning for pancreatic neoplasm, specifically a main duct-IPMN. Recommend MRI/MRCP without and with contrast for further evaluation. *? No bowel obstruction. There are a few borderline dilated loops of small bowel in the right upper quadrant without point of transition. Associated inspissation of succus entericus noted. Findings may relate to hypomotility, though occasionally can be seen in the setting of small intestinal bacterial overgrowth. *? Mild constipation *? Cholecystectomy. *? New but chronic appearing compression fracture involving the superior endplate of L4. 11/14/22 MRCP SHOWED: 1.? Lack of IV contrast limits evaluation of the pancreas. There is pancreatic ductal dilatation. A discrete mass is not visualized on this study. 2.? Mild central intrahepatic biliary ductal dilatation. The common bile duct is mildly dilated measuring 0.8 cm. No ductal filling defect. Review of Systems Review of Systems: Yes all other systems are reviewed and are negative Constitutional: Constitutional: Reports as per [facility] Past Medical History Medical History (Updated 08/16/23 @ 14:07 by Florian Angel MD) Hypoglycemia Vitamin D deficiency History of diabetes mellitus Family History Family History Father No problems noted. Mother No problems noted. Surgical History Surgical History (Updated 11/15/23 @ 13:13 by HAROON Diggs) History of Whipple procedure History of bariatric surgery Hx of repair of right rotator cuff Hx of colonoscopy with polypectomy Hx of tubal ligation Hx of cholecystectomy Hx of section Hx of tonsillectomy Social History Social History Household Members: Significant Other Housing: House Do you presently have visiting nurse or other home services: No Alcohol intake: current Alcohol intake frequency: holidays/special occasions only Alcohol type: wine Patient Tobacco Use Status: Never used Tobacco service: No Current occupational status: retired Meds Allergies Allergy/AdvReac Type Severity Reaction Status Date / Time ibuprofen [IBUPROFEN] Allergy Intermediate ANKLE/FOOT Verified 11/15/23 13:06 SWELLING minocycline Allergy Unknown Hives Verified 11/15/23 13:06 Active Medications: Current Medications Acetaminophen (Acetaminophen 325 Mg Tablet) 650 mg PO Q6H PRN PRN Reason: Pain, Mild (Pain Scale 1-3) Ascorbic Acid (Ascorbic Acid 500 Mg Tablet) 500 mg PO DAILY [facility] Calcium Carbonate (Calcium Carbonate 500 Mg Tablet) 500 mg PO BID [facility] Magnesium Oxide (Magnesium Oxide 400 Mg Tablet) 200 mg PO DAILY [facility] Melatonin (Melatonin 3 Mg Tablet) 6 mg PO BEDTIME PRN PRN Reason: Insomnia Melatonin (Melatonin 3 Mg Tablet) 9 mg PO BEDTIME PRN PRN Reason: Insomnia Morphine Sulfate (Morphine Sulfate 4 Mg/Ml Cartridge) 4 mg IVPUSH Q4H PRN; Protocol PRN Reason: Pain, Severe (Pain Scale 7-10) Multivitamins/Vitamin C (Multivitamin Tablet) 1 tab PO DAILY ON LICENSE OF [facility] Acarbose 25 Mg (Tablet) 50 mg PO TID ON LICENSE OF [facility] Nystatin (Nystatin Cream 15 Gm Tube) 1 appl TOPICAL DAILY [facility]; Protocol Ondansetron HCl (Ondansetron Hcl 4 Mg/2 Ml Vial) 4 mg IVPUSH Q8H PRN PRN Reason: Nausea and Vomiting Pharmacy Consult (Consult Rx Perform Med Rec) 1 each MISCELLANE ONCE PRN PRN Reason: Consult order Sodium Chloride (0.9 % Sodium Chloride Flush 3 Ml Syringe) [address] [facility] Last Admin: 11/14/22 07:55 Dose: 3 ml Home Medications ?Medication ?Instructions ?Recorded ?Confirmed ?Last Taken ?Type acetaminophen 650 mg 650 mg PO Q12H 03/11/20 11/14/22 11/13/22 History tablet,extended release (Tylenol Arthritis Pain) calcium carbonate 600 mg PO BID 03/11/20 11/14/22 11/13/22 History glucosamine sulfate 500 mg tablet 500 mg PO BID 03/11/20 11/14/22 11/13/22 History (Glucosamine) omega-3 fatty acids 1,000 mg 1,000 mg PO DAILY 03/11/20 11/14/22 11/13/22 History capsule melatonin 10 mg capsule 10 mg PO BEDTIME PRN Insomnia 04/27/20 11/14/22 11/13/22 History ascorbate calcium (vitamin C) 500 500 mg PO DAILY 07/23/21 11/14/22 11/13/22 History mg tablet multivitamin (Daily Multi-Vitamin 1 tab PO DAILY 07/23/21 11/14/22 11/13/22 History tablet) magnesium 200 mg tablet 200 mg PO DAILY 07/29/22 11/14/22 11/13/22 History amlodipine 2.5 mg tablet 2.5 mg PO DAILY 08/16/23 Unknown History [id number] 2 cap PO TID 08/16/23 Unknown History 24,000-76,000-120,000 unit capsule,delayed rel (Creon) omeprazole 20 mg capsule,delayed 20 mg PO DAILY 11/15/23 Unknown History release Physical Exam Vital Signs: Vital Signs: Last Vital Signs Temp 98.5 F 11/14/22 12:05 Pulse 95 11/14/22 12:05 Resp 20 11/14/22 12:05 BP 118/67 11/14/22 12:05 Pulse Ox 99 11/14/22 12:05 O2 Del Method Room Air 11/14/22 12:05 BMI result Body Mass Index 25.1 Const: General: no acute distress Nutritional Appearance: average body habitus Orientation/consciousness: patient oriented x3 Limitations: no limitations HEENT: Head: Yes normal to inspection Ears: hearing grossly normal bilaterally Eyes: Sclerae: sclerae normal Pupils: Equal, round and reactive pupils present Neck: Neck: Yes normal visual inspection Chest: Chest palpation & inspection: normal inspection of the chest Resp: Effort & Inspection: normal respiratory effort Auscultation: clear to auscultation bilaterally Cardio: Palpation: normal PMI Rate: regular rate Rhythm: regular rhythm Heart sounds: S1 normal heart sound present, S2 normal heart sound present and no murmurs GI: Palpation (GI): Soft to palpation, Tenderness to palpation present (GI) (Mild epigastric and RUQ tenderness) and No hepatosplenomegaly present Auscultation: normal bowel sounds Rectal Exam - Female: deferred Skin: General skin exam: no rashes or lesions noted Neuro: General: patient oriented x3, gait normal and moves all extremities Cranial nerves: Yes Equal, round and reactive pupils present Psych: Appearance: grossly normal Mental Status: mental status grossly normal Results Labs 11/14/22 05:20 11/14/22 05:20 Labs: Short CBC 11/13/22 11/14/22 Range/Units 22:47 05:20 WBC 8.5 8.5 (4.8-10.8) X10*3/uL Hgb 13.9 12.2 (12.0-16.0) g/dl Hct 41.1 36.3 L (37.0-47.0) % Plt Count 202 193 (160-400) X10*3/uL BMP 11/13/22 11/14/22 22:47 05:20 Sodium 136 135 Potassium 4.7 4.4 Chloride 97 102 Carbon Dioxide 29 27 BUN 25 H 16 Creatinine 0.87 0.79 Calcium 10.0 8.8 D Liver Function 11/13/22 11/14/22 Range/Units 22:47 05:20 Total Bilirubin 0.5 0.5 (0.0-1.0) mg/dL Direct Bilirubin 0.1 0.1 (0.0-0.5) mg/dL AST 57 H 39 H (5-31) U/L ALT 75 H 57 H (0-31) U/L Alkaline Phosphatase 70 62 (39-117) U/L Albumin 4.5 3.6 (3.5-5.0) g/dL Urine 11/14/22 Range/Units 02:52 Urine Color Yellow Urine Appearance Clear Urine pH 7.5 (5.0-9.0) Ur Specific [place] 1.025 (1.005-1.025) Urine Protein Negative (Neg-Trace) mg/dL Urine Glucose (UA) Negative (Negative) mg/dL Assessment and Plan (1) Abdominal pain: Qualifiers: Abdominal location: right upper quadrant Qualified Code(s): R10.11 - Right upper quadrant pain Status: Resolved (2) Dilated pancreatic duct: Status: Acute Plan 67 YF with history of bariatric surgery on nutritional supplementation admitted with 10/10 RUQ/epigastric pain.? Abd CT scan showed the main pancreatic duct with abrupt cut off in the pancreatic neck. The pancreatic parenchyma surrounding the dilated pancreatic duct appeared atrophic. Findings are concerning for pancreatic neoplasm, specifically a main duct-IPMN. RECOMMENDATIONS: 1. Check CEA and CA 19-9 2. Agree with obtaining MRCP with MRI 3. Pt will need further evaluation with an EUS - urgent referral sent to [facility] Time Spent With Patient Time: Total time managing care of this patient today ____ minutes. Procedures Date of Service Date of Service: 11/19/23
--- NOTE | 2022-11-14 12:31 | HO.PM.IMPN ---
Subjective Subjective Date of Service: 11/14/22 Interval History: RUQ pain improved no fever/chills/wt loss Review of Systems Review of Systems: Yes all other systems are reviewed and are negative Physical Exam Vital Signs: Vital Signs: Last Vital Signs Temp 98.5 F 11/14/22 12:05 Pulse 95 11/14/22 12:05 Resp 20 11/14/22 12:05 BP 118/67 11/14/22 12:05 Pulse Ox 99 11/14/22 12:05 O2 Del Method Room Air 11/14/22 12:05 BMI result Body Mass Index 25.1 Gen: in no acute distress HEENT: sclera anicteric, moist mucus membranes Neck: supple Lungs: clear to auscultation bilaterally Heart: regular rate and rhythm, no murmurs Abd: soft, non-tender, non-distended Ext: no edema Skin: warm/well-perfused Neuro: alert and oriented x3, no focal findings Psych: appropriate affect Objective Data Active Medications Acetaminophen (Acetaminophen 325 Mg Tablet) 650 mg PO Q6H PRN PRN Reason: Pain, Mild (Pain Scale 1-3) Ascorbic Acid (Ascorbic Acid 500 Mg Tablet) 500 mg PO DAILY [facility] Calcium Carbonate (Calcium Carbonate 500 Mg Tablet) 500 mg PO BID [facility] Magnesium Oxide (Magnesium Oxide 400 Mg Tablet) 200 mg PO DAILY [facility] Melatonin (Melatonin 3 Mg Tablet) 6 mg PO BEDTIME PRN PRN Reason: Insomnia Melatonin (Melatonin 3 Mg Tablet) 9 mg PO BEDTIME PRN PRN Reason: Insomnia Morphine Sulfate (Morphine Sulfate 4 Mg/Ml Cartridge) 4 mg IVPUSH Q4H PRN; Protocol PRN Reason: Pain, Severe (Pain Scale 7-10) Multivitamins/Vitamin C (Multivitamin Tablet) 1 tab PO DAILY [facility] Acarbose 25 Mg (Tablet) 50 mg PO TID [facility] Nystatin (Nystatin Cream 15 Gm Tube) 1 appl TOPICAL DAILY [facility]; Protocol Ondansetron HCl (Ondansetron Hcl 4 Mg/2 Ml Vial) 4 mg IVPUSH Q8H PRN PRN Reason: Nausea and Vomiting Pharmacy Consult (Consult Rx Perform Med Rec) 1 each MISCELLANE ONCE PRN PRN Reason: Consult order Sodium Chloride (0.9 % Sodium Chloride Flush 3 Ml Syringe) [facility] Last Admin: 11/14/22 07:55 Dose: 3 ml Documented By: GERBER Labs 11/14/22 05:20 11/14/22 05:20 Labs: Laboratory Results - last 24 hr 11/13/22 11/13/22 11/13/22 22:47 22:47 22:47 MCV 93.4 MCH 31.6 MCHC 33.8 RDW 12.7 Plt Count 202 MPV 9.6 Immature Gran % (Auto) Neut % (Auto) Lymph % (Auto) [place] % (Auto) Eos % (Auto) Baso % (Auto) Lymph # (Auto) [place]ison # (Auto) Eos # (Auto) Baso # (Auto) Abs Immat Gran (auto) Absolute Neuts (auto) Absolute Nucleated RBC 0.000 Nucleated RBC % (auto) 0.0 PT INR APTT Anion Gap 15 Estim Creat Clear Calc 39.0 Estimated GFR > 60 POC Glucose Random Glucose 133 H Lactic Acid Calcium 10.0 Total Bilirubin 0.5 Direct Bilirubin 0.1 AST 57 H ALT 75 H Alkaline Phosphatase 70 Troponin I High Sens < 2.7 Total Protein 7.7 Albumin 4.5 Lipase 17 Urine Color Urine Appearance Urine pH Ur Specific [place] Urine Protein Urine Glucose (UA) Urine Ketones Urine Blood Urine Nitrite Ur Leukocyte Esterase Urine RBC Urine WBC Ur Squamous Epith Cells Urine Bacteria Hyaline Casts Blood Type Antibody Screen 11/14/22 11/14/22 11/14/22 02:47 02:47 02:48 MCV MCH MCHC RDW Plt Count MPV Immature Gran % (Auto) Neut % (Auto) Lymph % (Auto) [place]ison % (Auto) Eos % (Auto) Baso % (Auto) Lymph # (Auto) Addison # (Auto) Eos # (Auto) Baso # (Auto) Abs Immat Gran (auto) Absolute Neuts (auto) Absolute Nucleated RBC Nucleated RBC % (auto) PT 10.2 INR 0.9 APTT 29.2 Anion Gap Estim Creat Clear Calc Estimated GFR POC Glucose Random Glucose Lactic Acid 0.8 Calcium Total Bilirubin Direct Bilirubin AST ALT Alkaline Phosphatase Troponin I High Sens Total Protein Albumin Lipase Urine Color Urine Appearance Urine pH Ur Specific [place] Urine Protein Urine Glucose (UA) Urine Ketones Urine Blood Urine Nitrite Ur Leukocyte Esterase Urine RBC Urine WBC Ur Squamous Epith Cells Urine Bacteria Hyaline Casts Blood Type A Positive Antibody Screen NEGATIVE 11/14/22 11/14/22 11/14/22 02:52 05:20 05:20 MCV 92.8 MCH 31.2 MCHC 33.6 RDW 12.8 Plt Count 193 MPV 10.0 Immature Gran % (Auto) 0.2 Neut % (Auto) 78.6 H Lymph % (Auto) 16.7 L [place] % (Auto) 4.2 Eos % (Auto) 0.1 Baso % (Auto) 0.2 Lymph # (Auto) 1.4 Addison # (Auto) 0.4 Eos # (Auto) 0.0 Baso # (Auto) 0.0 Abs Immat Gran (auto) 0.02 Absolute Neuts (auto) 6.7 Absolute Nucleated RBC 0.000 Nucleated RBC % (auto) 0.0 PT INR APTT Anion Gap 10 L Estim Creat Clear Calc 43.0 Estimated GFR > 60 POC Glucose Random Glucose 131 H Lactic Acid Calcium 8.8 D Total Bilirubin 0.5 Direct Bilirubin 0.1 AST 39 H ALT 57 H Alkaline Phosphatase 62 Troponin I High Sens Total Protein 6.1 L Albumin 3.6 Lipase Urine Color Yellow Urine Appearance Clear Urine pH 7.5 Ur Specific [place] 1.025 Urine Protein Negative Urine Glucose (UA) Negative Urine Ketones Negative Urine Blood Negative Urine Nitrite Negative Ur Leukocyte Esterase Trace H Urine RBC 0-2 Urine WBC 0-5 Ur Squamous Epith Cells 0-2 Urine Bacteria None Seen Hyaline Casts 0-2 Blood Type Antibody Screen 11/14/22 07:54 MCV MCH MCHC RDW Plt Count MPV Immature Gran % (Auto) Neut % (Auto) Lymph % (Auto) [place] % (Auto) Eos % (Auto) Baso % (Auto) Lymph # (Auto) Addison # (Auto) Eos # (Auto) Baso # (Auto) Abs Immat Gran (auto) Absolute Neuts (auto) Absolute Nucleated RBC Nucleated RBC % (auto) PT INR APTT Anion Gap Estim Creat Clear Calc Estimated GFR POC Glucose 112 Random Glucose Lactic Acid Calcium Total Bilirubin Direct Bilirubin AST ALT Alkaline Phosphatase Troponin I High Sens Total Protein Albumin Lipase Urine Color Urine Appearance Urine pH Ur Specific [place] Urine Protein Urine Glucose (UA) Urine Ketones Urine Blood Urine Nitrite Ur Leukocyte Esterase Urine RBC Urine WBC Ur Squamous Epith Cells Urine Bacteria Hyaline Casts Blood Type Antibody Screen Impressions Abdomen/Pelvis CT 11/14/22 01:14 IMPRESSION: * Dilatation of the main pancreatic duct with abrupt cut off in the pancreatic neck. The pancreatic parenchyma surrounding the dilated pancreatic duct is atrophic. Findings are concerning for pancreatic neoplasm, specifically a main duct-IPMN. Recommend MRI/MRCP without and with contrast for further evaluation. * No bowel obstruction. There are a few borderline dilated loops of small bowel in the right upper quadrant without point of transition. Associated inspissation of succus entericus noted. Findings may relate to hypomotility, though occasionally can be seen in the setting of small intestinal bacterial overgrowth. * Mild constipation * Cholecystectomy. * New but chronic appearing compression fracture involving the superior endplate of L4. This critical result was discussed with Dr Lai at 11/14/2022 1:44 AM and it was ascertained that the content and urgency of the report was understood at the time of direct communication. Cholangiopancreatography MRI 11/14/22 09:52 IMPRESSION: 1. Lack of IV contrast limits evaluation of the pancreas. There is pancreatic ductal dilatation. A discrete mass is not visualized on this study. 2. Mild central intrahepatic biliary ductal dilatation. The common bile duct is mildly dilated measuring 0.8 cm. No ductal filling defect. Assessment and Plan (1) Abdominal pain: Status: Acute (2) Dilated pancreatic duct: Status: Acute Plan d#2 67yo F with bariatric surgery hx presenting with acute RUQ pain, found to have dilated main pancreatic duct with possible IPMN # pancreatic neoplasm - MRI +/- contrast, GI consultation, Gen Surg consultation, will likely need workup at [facility] [place] out[place] - pain control with oxycodone/morphine # VTE ppx: SCDs # dispo eventual home In my clinical judgment, the patient requires continued inpatient hospitalization for the following reasons: workup of pancreatic mass Time Spent With Patient Time: Total time managing care of this patient today __35_ minutes. Quality Stroke Does the patient have a stroke diagnosis?: No VTE Prior VTE?: No VTE Risk Level:: Medical - moderate - high VTE Device Contraindication: N/A - Device Ordered VTE Drug Contraindication: Treatment Not Indicated
[2022-11-14] MEDS: Ascorbic Acid 500 MG TABLET PO (12:54)
[2022-11-14] MEDS: Multivitamin TABLET 1 TAB PO (12:54)
--- NOTE | 2022-11-14 16:25 | PC.NURSE ---
this pt was off unit in MRI when med was due. after pt came back to unit, this RN attempted to medicate pt with 1500 scheduled med. pt is on NPO diet and pt stated that she needed to take that med with food. this RN reported this to Dr. Asif who advised to hold the med until she found out of the pt could be taken off of NPO diet. still waiting for response.
--- NOTE | 2022-11-14 20:45 | MHC.CM.PN ---
FRANK 11/14. Met with patient assigned to Observation in [place] with bed assignment pending. Lives with . No DME/Services. PCP Mar Lao in . HCP at home/PCP office. HCP/ Isaias Montes ([phone]). MOLST on file. Full Code. Moderna x4, Pfizer x1. Thrive assessment completed- No concerns. Pt will follow up with imaging concerns regarding ? pancreatic neoplasm at [facility], per her request. D/C plan: Home without services. will transport home. CM following for discharge planning.
--- NOTE | 2022-11-15 07:31 | PM.PNGS ---
Subjective Subjective Date of Service: 11/15/22 Patient reports: no new complaints, feels better, tolerating liquids well, flatus and bowel movement Interval history: The patient reports complete resolution of the back and right upper quadrant pain that brought her to the hospital. She has been placed on clear liquids and is tolerating them. She had a bowel movement which was normal for her in free of any diarrhea or blood. She otherwise denies chest pain, difficulty breathing, shortness of breath or localizing neurologic symptoms. Patient again voiced interest in having her continued workup done on an outpatient basis at [facility] given her open gastric bypass done 20 years ago and most recent bariatric visit April,. While the patient notes a distant history of anemia, she denies ever having marginal ulcer and her labs do not show any anemia. However, gastric bypass is an ulcerogenic operation, and given her presenting pain, evaluation should be considered endoscopically which the patient would prefer be done at [facility]. Physical Exam Vital Signs: Vital Signs: Last Vital Signs Temp 98.6 F 11/14/22 14:05 Pulse 58 11/14/22 14:05 Resp 20 11/14/22 14:05 BP 140/63 H 11/14/22 14:05 Pulse Ox 97 11/14/22 14:05 O2 Del Method Room Air 11/14/22 14:05 BMI result Body Mass Index 25.1 On exam she is resting comfortably and in good spirits She is anicteric She is in no acute respiratory distress She is in no acute distress Her abdomen is soft and nontender with no rebound, rigidity, guarding or peritoneal sign Objective Data Active Medications Acetaminophen (Acetaminophen 325 Mg Tablet) 650 mg PO Q6H PRN PRN Reason: Pain, Mild (Pain Scale 1-3) Last Admin: 11/14/22 12:54 Dose: 650 mg Documented By: GERBER Ascorbic Acid (Ascorbic Acid 500 Mg Tablet) 500 mg PO DAILY [facility] Last Admin: 11/14/22 12:54 Dose: 500 mg Documented By: GERBER Calcium Carbonate (Calcium Carbonate 500 Mg Tablet) 500 mg PO BID [facility] Last Admin: 11/14/22 20:14 Dose: 500 mg Documented By: NEYILRosalie Magnesium Oxide (Magnesium Oxide 400 Mg Tablet) 200 mg PO DAILY [facility] Melatonin (Melatonin 3 Mg Tablet) 6 mg PO BEDTIME PRN PRN Reason: Insomnia Melatonin (Melatonin 3 Mg Tablet) 9 mg PO BEDTIME PRN PRN Reason: Insomnia Morphine Sulfate (Morphine Sulfate 4 Mg/Ml Cartridge) 4 mg IVPUSH Q4H PRN; Protocol PRN Reason: Pain, Severe (Pain Scale 7-10) Multivitamins/Vitamin C (Multivitamin Tablet) 1 tab PO DAILY [facility] Last Admin: 11/14/22 12:54 Dose: 1 tab Documented By: GERBER Acarbose 25 Mg (Tablet) 50 mg PO TID [facility] Last Admin: 11/14/22 21:06 Dose: Not Given Documented By: NATHANIEL Non-Admin Reason: not available , pharmacy aware Nystatin (Nystatin Cream 15 Gm Tube) 1 appl TOPICAL DAILY [facility]; Protocol Last Admin: 11/14/22 13:45 Dose: Not Given Documented By: GERBER Non-Admin Reason: Med Not Available Ondansetron HCl (Ondansetron Hcl 4 Mg/2 Ml Vial) 4 mg IVPUSH Q8H PRN PRN Reason: Nausea and Vomiting Pharmacy Consult (Consult Rx Perform Med Rec) 1 each MISCELLANE ONCE PRN PRN Reason: Consult order Sodium Chloride (0.9 % Sodium Chloride Flush 3 Ml Syringe) 3 ml IVFLUSH QSHIFT [facility] Last Admin: 11/14/22 20:14 Dose: 3 ml Documented By: NATHANIEL Labs 11/14/22 05:20 11/14/22 05:20 Labs: Laboratory Results - last 24 hr 11/14/22 11/14/22 11/14/22 05:20 07:54 13:56 POC Glucose 112 Total Bilirubin 0.5 Direct Bilirubin 0.1 AST 39 H ALT 57 H Alkaline Phosphatase 62 Total Protein 6.1 L Albumin 3.6 Carcinoembryonic Ag 2.30 Microbiology Microbiology Results: Microbiology 11/14/22 02:48 Blood Culture - Preliminary Blood - Venous No growth after 24 hours. 11/14/22 01:00 Blood Culture - Preliminary Blood - Venous No growth after 24 hours. Procedures Date of Service Date of Service: 11/15/22 Progress Note: A&P Assessment and plan (1) Abdominal pain: Status: Acute (2) Dilated pancreatic duct: Status: Acute (3) History of bariatric surgery: Status: Acute Plan Clinically, the patient likely had a transient ileus related to the degree of pain. This pain could represent an intra pancreatic duct pathology and MRI with contrast is currently pending. Endoscopic ultrasound would also be recommended. While the patient does not have any anemia, the degree of pain she was experiencing may represent a marginal ulcer and upper endoscopy should be considered. The patient would like this done at [facility] where her bypass was done. There were bubbles of air in the gastric remnant which suggest, but are not pathognomonic for a gastrogastric fistula which would be consistent with a marginal ulcer. The patient is surgically stable and there is no acute inflammation, leukocytosis or peritoneal sign on exam to mandate exploration. I would recommend advancing the diet with follow-up as the patient has requested at [facility] with Gastroenterology and her bariatric surgery team. Please call me if you have any specific questions, otherwise I will sign off. Time Spent With Patient Time: Total time managing care of this patient today ____ minutes. Quality Stroke Does the patient have a stroke diagnosis?: No VTE Prior VTE?: No VTE Risk Level:: Medical - moderate - high VTE Device Contraindication: N/A - Device Ordered VTE Drug Contraindication: Treatment Not Indicated
[2022-11-15 08:00] VITALS: BP 158/82; PULSE 61; RESP 16; TEMP 36.1; O2SAT 100
[2022-11-15] MEDS: Ascorbic Acid 500 MG TABLET PO (08:05)
[2022-11-15] MEDS: Magnesium Oxide 400 MG TABLET 200 MG PO (08:05)
[2022-11-15] MEDS: Multivitamin TABLET 1 TAB PO (08:05)
--- NOTE | 2022-11-15 08:47 | PC.NURSE ---
Verbal report to Johana Mcgee
--- NOTE | 2022-11-15 11:41 | MHC.CM.PN ---
Per MD rounds discharge today to home self care. Family to transport home.
--- NOTE | 2022-11-15 12:05 | P.DS_ITS ---
DS: Providers Provider Date of Service: 11/15/22 Date of admission: 11/14/22 02:42 Date of discharge: 11/15/22 Primary care physician: Unknown Physician Consults: 11/14/22 03:08 Consult to General Surgery Routine Consulting Provider: [facility] General Surgeons Reason for consultation: ?pancreatic neoplasm 11/14/22 11:14 Consult to Gastroenterology Routine Consulting Provider: [facility] Gastroenterology Services Reason for consultation: ruq pain, possible ipmn, mrcp pending DS: Diagnosis Discharge Diagnosis (1) Abdominal pain: Status: Acute (2) Dilated pancreatic duct: Status: Acute (3) History of bariatric surgery: Status: Acute DS: Summary Hospital Course Hospital Course: from admission H+P by hospitalist Kaylan Hutchinson MD, 11/14/22: This is a 67-year-old female with pertinent history of bariatric surgery on nutritional supplementation who presents to the emergency department for evalu ation of right upper quadrant/epigastric pain.? Patient states it was sudden in onset around 20:00 when she had pain in the right upper quadrant and epigastric region.? It was nonradiating, constant and progressive.? Patient had associated nausea but no fever, chills or vomiting.? Patient states she had similar right flank pain when she had kidney stone about 20 years ago.? She denies chest discomfort, palpitations, shortness of breath, changes in urinary or bowel habits.? She reports intentional weight loss of 20 lb over the last 10 months.? No personal history of cancer.? Had breast biopsy x2 negative In the emergency department, imaging concerning for pancreatic neoplasm.? General surgery was consulted who requested admission. 67yo F with bariatric surgery hx presenting with acute RUQ pain, found to have dilated main pancreatic duct with suspicion of neoplasm. Pain resolved completely and her diet was advanced to a regular solid diet. General Surgery and Gastroenterology were consulted. She has been referred to [facility] for EUS for further workup of the pancreatic neoplasm. Time Spent with Patient Time attestation: Total time managing care of this patient today _35___ minutes. Discharge coordination time: Greater than 30 minutes Quality: Safe Use of Opioids Does Pt have an Active Cancer Diagnosis on the Problem List?: No Quality: Stroke Does the patient have a stroke diagnosis?: No Physical Exam Vital Signs: Vital Signs: Last Vital Signs Temp 97 F 11/15/22 08:00 Pulse 61 11/15/22 08:00 Resp 16 11/15/22 08:00 BP 158/82 H 11/15/22 08:00 Pulse Ox 100 11/15/22 08:00 O2 Del Method Room Air 11/15/22 08:00 BMI result Body Mass Index 25.1 Gen: in no acute distress HEENT: sclera anicteric, moist mucus membranes Neck: supple Lungs: clear to auscultation bilaterally Heart: regular rate and rhythm, no murmurs Abd: soft, non-tender, non-distended Ext: no edema Skin: warm/well-perfused Neuro: alert and oriented x3, no focal findings Psych: appropriate affect DS: Data Data Completed and Pending Completed studies during hospitalization [Text1]: Laboratory Results WBC 8.5 X10*3/uL (4.8-10.8) 11/14/22 05:20 RBC 3.91 X10*6/uL (4.20-5.50) L 11/14/22 05:20 Hgb 12.2 g/dl (12.0-16.0) 11/14/22 05:20 Hct 36.3 % (37.0-47.0) L 11/14/22 05:20 MCV 92.8 fL (80.0-98.0) 11/14/22 05:20 MCH 31.2 pg (27.0-33.0) 11/14/22 05:20 MCHC 33.6 g/dl (31.0-35.0) 11/14/22 05:20 RDW 12.8 % (11.0-16.0) 11/14/22 05:20 Plt Count 193 X10*3/uL (160-400) 11/14/22 05:20 MPV 10.0 fL (9.4-12.3) 11/14/22 05:20 Immature Gran % (Auto) 0.2 % (0.0-0.4) 11/14/22 05:20 Neut % (Auto) 78.6 % (45-73) H 11/14/22 05:20 Lymph % (Auto) 16.7 % (20-40) L 11/14/22 05:20 Blair % (Auto) 4.2 % (2-11) 11/14/22 05:20 Eos % (Auto) 0.1 % (0-4) 11/14/22 05:20 Baso % (Auto) 0.2 % (0-2) 11/14/22 05:20 Lymph # (Auto) 1.4 X10*3/uL (1.2-4.9) 11/14/22 05:20 Blair # (Auto) 0.4 X10*3/uL (0.1-1.2) 11/14/22 05:20 Eos # (Auto) 0.0 X10*3/uL (0.0-0.4) 11/14/22 05:20 Baso # (Auto) 0.0 X10*3/uL (0.0-0.2) 11/14/22 05:20 Abs Immat Gran (auto) 0.02 X10*3/uL (0.00-0.03) 11/14/22 05:20 Absolute Neuts (auto) 6.7 x10*3/uL (2.0-8.3) 11/14/22 05:20 Absolute Nucleated RBC 0.000 X10*3/uL (0.0-0.012) 11/14/22 05:20 Nucleated RBC % (auto) 0.0 /100WBC (0.0-0.2) 11/14/22 05:20 PT 10.2 SEC (10.0-13.1) 11/14/22 02:48 INR 0.9 (0.9-1.1) 11/14/22 02:48 APTT 29.2 SEC (26.0-36.4) 11/14/22 02:48 Sodium 135 mmol/L (135-145) 11/14/22 05:20 Potassium 4.4 mmol/L (3.3-5.1) 11/14/22 05:20 Chloride 102 mmol/L (96-108) 11/14/22 05:20 Carbon Dioxide 27 mmol/L (22-29) 11/14/22 05:20 Anion Gap 10 (12-20) L 11/14/22 05:20 BUN 16 mg/dL (9-16) 11/14/22 05:20 Creatinine 0.79 mg/dL (0.5-1.4) 11/14/22 05:20 Estim Creat Clear Calc 43.0 11/14/22 05:20 Estimated GFR > 60 11/14/22 05:20 POC Glucose 112 mg/dL (60-115) 11/14/22 07:54 Random Glucose 131 mg/dL (60-115) H 11/14/22 05:20 Lactic Acid 0.8 mmol/L (0.5-2.0) 11/14/22 02:47 Calcium 8.8 mg/dL (8.4-10.2) D 11/14/22 05:20 Total Bilirubin 0.5 mg/dL (0.0-1.0) 11/14/22 05:20 Direct Bilirubin 0.1 mg/dL (0.0-0.5) 11/14/22 05:20 AST 39 U/L (5-31) H 11/14/22 05:20 ALT 57 U/L (0-31) H 11/14/22 05:20 Alkaline Phosphatase 62 U/L (39-117) 11/14/22 05:20 Troponin I High Sens < 2.7 ng/L (<3.5-17.0) 11/13/22 22:47 Total Protein 6.1 g/dL (6.5-8.0) L 11/14/22 05:20 Albumin 3.6 g/dL (3.5-5.0) 11/14/22 05:20 Lipase 17 U/L (8-78) 11/13/22 22:47 Carcinoembryonic Ag 2.30 ng/mL 11/14/22 13:56 Urine Color Yellow 11/14/22 02:52 Urine Appearance Clear 11/14/22 02:52 Urine pH 7.5 (5.0-9.0) 11/14/22 02:52 Ur Specific Brick 1.025 (1.005-1.025) 11/14/22 02:52 Urine Protein Negative mg/dL (Neg-Trace) 11/14/22 02:52 Urine Glucose (UA) Negative mg/dL (Negative) 11/14/22 02:52 Urine Ketones Negative mg/dL (Negative) 11/14/22 02:52 Urine Blood Negative (Negative) 11/14/22 02:52 Urine Nitrite Negative (Negative) 11/14/22 02:52 Ur Leukocyte Esterase Trace (Negative) H 11/14/22 02:52 Urine RBC 0-2 /HPF (0-2) 11/14/22 02:52 Urine WBC 0-5 /HPF (0-5) 11/14/22 02:52 Ur Squamous Epith Cells 0-2 /HPF (0-2) 11/14/22 02:52 Urine Bacteria None Seen (None Seen) 11/14/22 02:52 Hyaline Casts 0-2 /LPF (0-2) 11/14/22 02:52 Blood Type A Positive 11/14/22 02:47 Antibody Screen NEGATIVE 11/14/22 02:47 Impressions Abdomen/Pelvis CT 11/14/22 01:14 IMPRESSION: * Dilatation of the main pancreatic duct with abrupt cut off in the pancreatic neck. The pancreatic parenchyma surrounding the dilated pancreatic duct is atrophic. Findings are concerning for pancreatic neoplasm, specifically a main duct-IPMN. Recommend MRI/MRCP without and with contrast for further evaluation. * No bowel obstruction. There are a few borderline dilated loops of small bowel in the right upper quadrant without point of transition. Associated inspissation of succus entericus noted. Findings may relate to hypomotility, though occasionally can be seen in the setting of small intestinal bacterial overgrowth. * Mild constipation * Cholecystectomy. * New but chronic appearing compression fracture involving the superior endplate of L4. This critical result was discussed with Dr Lai at 11/14/2022 1:44 AM and it was ascertained that the content and urgency of the report was understood at the time of direct communication. Cholangiopancreatography MRI 11/14/22 09:52 IMPRESSION: 1. Lack of IV contrast limits evaluation of the pancreas. There is pancreatic ductal dilatation. A discrete mass is not visualized on this study. 2. Mild central intrahepatic biliary ductal dilatation. The common bile duct is mildly dilated measuring 0.8 cm. No ductal filling defect. Abdomen MRI 11/14/22 15:43 IMPRESSION: Significant dilatation of the main pancreatic duct with abrupt cut-off at the level of the head/neck junction. There is some equivocal differential hyperenhancement of the pancreatic parenchyma adjacent to the transition point. Findings are worrisome for an underlying stricture/mass such as pancreatic adenocarcinoma leading to downstream obstruction. An additional differential consideration includes main type intraductal papillary mucinous neoplasm, as no clear enhancing extraductal mass is noted, although such an abrupt transition is somewhat atypical for this latter diagnosis. Referral to GI oncology and further evaluation with EUS is recommended. [id number] intrahepatic and extrahepatic biliary ductal dilatation is nonspecific and could be associated with post-cholecystectomy state. The main pancreatic duct at the level of the head and uncinate process is nondilated. Hepatic steatosis. Pending studies at discharge: CA 19.9 level (11/14/22) Discharge Plan Discharge Patient Disposition: Home, Self-Care Discharge Diagnosis: pancreatic neoplasm Referrals: [facility] [Provider Group] - 1 Week Mar Gomez CNP [Nurse Practitioner] - 1 Week Gladys Asif MD [Physician] - 1 Week Discharge Medications: Continued acarbose 25 mg tablet 50 mg PO TID 30 Days Qty: 180 11RF multivitamin [Daily Multi-Vitamin] Tablet 1 tab PO DAILY ascorbate calcium (vitamin C) 500 mg tablet 500 mg PO DAILY magnesium 200 mg tablet 200 mg PO DAILY nystatin 100,000 unit/gram cream 1 appl topical DAILY 30 Days Qty: 30 1RF melatonin 10 mg capsule 10 mg PO BEDTIME PRN (Reason: Insomnia) acetaminophen [Tylenol Arthritis Pain] 650 mg tablet extended release 650 mg PO Q12H omega-3 fatty acids 1,000 mg capsule 1,000 mg PO DAILY glucosamine sulfate [Glucosamine] 500 mg tablet 500 mg PO BID Rx Instructions: administer with meals calcium carbonate 600 mg calcium (1,500 mg) tablet 600 mg PO BID Discharge Orders: Discharge Order (Routine); Ordered 11/15/22 Ordered By: Layo Fisher Diet: Advance to usual diet Activity on Discharge: As tolerated Stand Alone Forms: Patient Portal Discharge page Care Plan Goals: work up of pancreatic neoplasm Health Concerns: pancreatic neoplasm Plan of Treatment: follow up with [facility] for endoscopic US; if you do not hear from them in 1 week, please call Dr Asif's office at [facility] Gastroenterology Please follow up with your primary care doctor within 1 week. Return to the hospital if you experience recurrent or worsening symptoms. Assessment: See Discharge Summary.
[2022-11-15 15:37] VITALS: BP 140/80; PULSE 72; RESP 20; TEMP 36.6; O2SAT 99
[2022-11-18 08:44] LABS: Carbohydrate Antigen 19-9 52 U/mL (<34)
== END 2022-11-15 17:14 | disposition home or self-care (01) ==
LOC: HO.ED 11-14 02:34 → HO.EDOVER 11-14 03:14 → HO.S3 11-15 07:49
PROVIDERS: Admitting Provider Student in an Organized Health Care Education/Training Program; Emergency Provider Emergency Medicine Emergency Medical Services; PCP Internal Medicine; Visit Provider Family Medicine
DX: R10.11 Right upper quadrant pain (principal); K86.89 Other specified diseases of pancreas; K56.600 Partial intestinal obstruction, unspecified as to cause; E11.649 Type 2 diabetes mellitus with hypoglycemia without coma; R93.3 Abnormal findings on diagnostic imaging of other parts of digestive tract; Z86.39 Personal history of other endocrine, nutritional and metabolic disease; Z87.442 Personal history of urinary calculi; Z90.49 Acquired absence of other specified parts of digestive tract; Z98.84 Bariatric surgery status; Z98.51 Tubal ligation status; Z79.899 Other long term (current) drug therapy
CPT/HCPCS: 36415; 74177; 74181; 74183; 80048; 80053; 80076; 81001; 82248; 82378; 82947; 83605; 83690; 84484; 85025; 85027; 85610; 85730; 86301; 86850; 86900; 86901; 87040; 93005; 96361; 96374; 96375; 96376; 99221; 99285; A9585; J2270; J2405; Q9967

== ENCOUNTER → 2022-11-14 02:42 | Outpatient (BNV) | payer MEDICARE, BC, SELFPAY | PROVIDERS: Admitting Provider Student in an Organized Health Care Education/Training Program; Emergency Provider Emergency Medicine Emergency Medical Services; Visit Provider Surgery | DX: K86.89 Other specified diseases of pancreas; Z98.84 Bariatric surgery status; E16.2 Hypoglycemia, unspecified | CPT/HCPCS: 99232 ==

== ENCOUNTER → 2022-11-14 02:42 | Outpatient (BNV) | payer MEDICARE, BC, SELFPAY | PROVIDERS: Admitting Provider Student in an Organized Health Care Education/Training Program; Emergency Provider Emergency Medicine Emergency Medical Services; Visit Provider Student in an Organized Health Care Education/Training Program | DX: R10.11 Right upper quadrant pain (principal); K86.89 Other specified diseases of pancreas | CPT/HCPCS: 99222; 99232; 99239 ==

== ENCOUNTER → 2022-11-14 02:42 | Outpatient (BNV) | payer MEDICARE, BC, SELFPAY | PROVIDERS: Admitting Provider Student in an Organized Health Care Education/Training Program; Emergency Provider Emergency Medicine Emergency Medical Services; PCP Internal Medicine; Visit Provider Internal Medicine Gastroenterology | DX: R10.11 Right upper quadrant pain (principal); K86.89 Other specified diseases of pancreas | CPT/HCPCS: 99499 ==

== ENCOUNTER 2023-06-01 13:42 | Outpatient (AMB) | payer MEDICARE, BC, SELFPAY ==
--- NOTE | 2023-06-01 13:43 | A.OFFVIS_ITS ---
Intake Vital Signs 06/01/23 13:44 Height 4 ft 7 in Weight 113 lb 15.664 oz BMI 26.5 BP 150/82 H Blood Pressure Location Lt brachial Position Sitting Pulse 92 Pulse Source Pulse Oximeter Intake Visit Reasons: F/U NIPHS/CONFIRMED Intake Note: Patient present today for NIPHS follow up. 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 Accompanied by: Self / Same As Patient Allergies ibuprofen [IBUPROFEN] Allergy (Intermediate, Verified 06/01/23 13:48) ANKLE/FOOT SWELLING minocycline Allergy (Unknown, Verified 06/01/23 13:48) Hives Medication List - Last Reconciled 06/01/23 by Florian Angel MD acarbose 50 mg (2 x 25 mg) PO TID 30 days acetaminophen ER (Tylenol Arthritis Pain) 650 mg PO Q12H ascorbate calcium (vitamin C) 500 mg PO DAILY calcium carbonate 600 mg PO BID glucosamine sulfate (Glucosamine) 500 mg PO BID magnesium 200 mg PO DAILY melatonin 10 mg PO BEDTIME PRN multivitamin (Daily Multi-Vitamin tablet) 1 tab PO DAILY omega-3 fatty acids 1,000 mg PO DAILY HPI HPI Comments History of Present Illness Details 67 YO Female with a PMHx of T2DM, now in remission, and Bariatric Surgery with Angy-En-Y at the age of 47 who is seen in F/U for NIPHS. The patient last saw Dr. Darden 04/25/2022 She reports a history of T2DM, which resolved 17 years ago after she underwent Angy-En-Y gastric bypass. She did regain weight, and Diabetes returned, but then lost weight again and has remained off of any diabetes meds for at least a few years. At her initial visit she reported a few months feeling symptoms of li ghtheadedness, confusion, tremors and blurred vision a few times per week shortly before lunch. This is approximately 2 hours after eating her usual breakfast of Oatmeal with an apple. Symptoms resolved within 20 minutes of eating something. She underwent evaluation for hypoglycemia and was found to have a significant decline in her sugar at the 2 hour point on her 4 hour OGTT. 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 She was asked to eat a very low carbohydrate diet, and start Acarbose 25 mg PO AC, and this was titrated upward to 50 mg PO AC. She reports that symptoms have drastically improved since starting the acarbose and changing her diet. She has no complaints today. Labs: Laboratory Tests 12/13/22 12/13/22 06:30 06:30 Creatinine 0.84 Estimated GFR > 60 Random Glucose 105 Hemoglobin A1c % 5.7 Currently on acarbose 50 mg t.i.d. Having Whipple procedure due to pancreatic cancer next wk. PENDING SALE TO [facility] Medical History (Updated 06/01/23 @ 13:55 by Florian Angel MD) Hypoglycemia Vitamin D deficiency History of diabetes mellitus Surgical History History of bariatric surgery Hx of repair of right rotator cuff Hx of colonoscopy with polypectomy Hx of tubal ligation Hx of cholecystectomy Hx of section Hx of tonsillectomy Family History Father No problems noted. Mother No problems noted. 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 She is currently on acarbose. Just diagnosed with pancreatic cancer to go for Whipple next week Plan is to have patient proceed with Whipple procedure and follow-up here for management of diabetes afterwards. 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
[2023-06-01 13:44] VITALS: BP 150/82; PULSE 92; BMI 26.5
== END 2023-06-01 14:14 | disposition home or self-care (01) ==
PROVIDERS: PCP Internal Medicine; Visit Provider Internal Medicine Endocrinology, Diabetes & Metabolism
DX: E13.9 Other specified diabetes mellitus without complications (principal); E89.1 Postprocedural hypoinsulinemia; Z90.410 Acquired total absence of pancreas
CPT/HCPCS: 99213

== ENCOUNTER → 2023-06-01 13:42 | Outpatient (BNVA) | payer MEDICARE, BC, SELFPAY | PROVIDERS: Visit Provider Internal Medicine Endocrinology, Diabetes & Metabolism | DX: E16.2 Hypoglycemia, unspecified (principal); E89.1 Postprocedural hypoinsulinemia; E13.9 Other specified diabetes mellitus without complications; Z90.410 Acquired total absence of pancreas | CPT/HCPCS: 99212 ==

== ENCOUNTER 2023-07-31 09:54 | Outpatient (AMB) | payer MEDICARE, BC, SELFPAY ==
[2023-07-31 10:11] VITALS: BMI 24.5
--- NOTE | 2023-07-31 10:11 | MHC.AMNUTRGE ---
Intake VS Expanded 07/31/23 10:11 07/31/23 13:15 Height 4 ft 7 in 4 ft 7 in Weight 105 lb 6.095 oz 105 lb BMI 24.5 24.4 Intake Visit Reasons: T2DM/UNABLE TO LVM Allergies ibuprofen [IBUPROFEN] Allergy (Intermediate, Verified 06/01/23 13:48) ANKLE/FOOT SWELLING minocycline Allergy (Unknown, Verified 06/01/23 13:48) Hives HPI Nutrition Presentation Details Pt presents for MNT for DM secondary to pancreatectomy. Pt was referred by Dr. Angel, executive steward Pt reports pancreactomy was in 06/2023 and [place] [facility] [place] last [place]. Pt reports coping well however having increased appetite for sweets which she reports constantly eating in between meals. Pt reports eating 3 meals a day , taking creon 2 tabs before each meal and reports having snack in between however reports snacks are sugary snacks due to increased appetite for these lately. Beverages: reports choosing water or tea with no sugar added, and having beverages 30-45 minutes before or after meals Pt denies vomiting, reports having 2 sometimes 3 bowel movements per day Pt has hx of Angy en Y gastric bypass surgery over around Pt is currently on no DM meds, does not own a glucometer, has appointment pending with executive steward in 2 weeks. Pt has appt pending with CDE tomorrow Pt reports weigh loss of 5 -6 lbs after pancreactomy last month. Noted weight at around 114lbs in 05/2023 , today's weight at 105 lbs (07/2023) Pt reports not having nutritional supplements, prefers solid foods vs liquids Pt reports after surgery was discharged home on a regular diet, not diabetic diet Typical meal 7-8 am B: 1 egg/ 1 slice of ham, 1 cheese, 1 wheat tortilla, cup of water 10 am persian yogurt 12: grilled chicken sweet potato fries (left over from the night before), 5-6 pm 2 turkey hotdogs with baked beans , water Pt reports keeping active - [place] on Mon, jazz wed, country on Monday TSX-Dtaqsax-Xx.Jeor Equation Height 4 ft 7 in Weight 105 lb Resting Metabolic Rate 853.36 Calculated Activity Level Mild Activity Calories Needed to Maintain Weight 1173.37 Diagnosis Nutrition problem #1 food nutri know defi As related to (etiology) #1 diagnosis As evidenced by (sign/symptom) #1 knowledge deficit of diet (post pancreactomy) Monitoring/Goals Nutrition problem monitoring level of knowledge/skill, total PRO intake and weight (weight maintenance) Nutrition goal/outcome list 3 CHO foods (complex carbs and protein source of foods ) Outcome progress verbalized understanding Learning/Education Readiness to learn good Stages of change action Educational materials provided Yes (meal planning) Most Recent Diabetes Results: Creatinine 0.79 mg/dL (0.5-1.4) 11/14/22 Blood Urea Nitrogen 16 mg/dL (9-16) 11/14/22 Sodium 135 mmol/L (135-145) 11/14/22 Potassium 4.4 mmol/L (3.3-5.1) 11/14/22 Chloride 102 mmol/L (96-108) 11/14/22 Carbon Dioxide 27 mmol/L (22-29) 11/14/22 Calcium 8.8 mg/dL (8.4-10.2) 11/14/22 AST 39 U/L (5-31) H 11/14/22 ALT 57 U/L (0-31) H 11/14/22 Total Protein 6.1 g/dL (6.5-8.0) L 11/14/22 Albumin 3.6 g/dL (3.5-5.0) 11/14/22 [facility] Medical History (Updated 07/31/23 @ 13:13 by Melanie Tripathi, RD, LDN) Hypoglycemia Vitamin D deficiency History of diabetes mellitus Surgical History History of bariatric surgery Hx of repair of right rotator cuff Hx of colonoscopy with polypectomy Hx of tubal ligation Hx of cholecystectomy Hx of section Hx of tonsillectomy Family History Father No problems noted. Mother No problems noted. Social History Household Members: Significant Other Housing: House Do you presently have visiting nurse or other home services: No Alcohol intake: current Alcohol intake frequency: holidays/special occasions only Alcohol type: wine Patient Tobacco Use Status: Never used Tobacco service: No Current occupational status: retired Assessment & Plan Assessment & Plan (1) Other specified diabetes mellitus without complications: Comment: Acquired total absence of pancreas in 06/2023 Code(s): E13.9 - Other specified diabetes mellitus without complications Plan: Wt: 48 Kg ( 07/2023 ) Est kcal needs as per MSJ: 1200 (40% carb, 30% protein/fat) Est fluid needs as per 25-30 ml/d: 1200 Est prot per day as per 1 g/kg bw: 48 Recommend fiber intake : 8-10 g per day and gradually increase to 25-28 g per day for women and 35-38 g for men or as tolerated Recommend sodium intake per day : less than 1500 mg - less than 2000 mg Educated patient on: ( R = reviewed V = verbalizes understanding N/R = needs review N/A = not applicable Food sources of carbohydrate, adequate serving sizes and its role in various health conditions: R V Differences between complex carbohydrates a simple carbohydrates, role of fiber in diet: R V Lean protein sources of foods: R V Differences between types of fats and role in diet (mono on saturated fat fatty acids, saturated fatty acids, trans fats): R basic low fat Food sources of sodium in salt and healthy modifications for heart health in kidney health: NR Vitamins and minerals: R V Healthy plate method concept: R Physical activity: Benefits a precaution: N/R Hypoglycemia protocol (rule of 15): N/R Dietary prevention of Hyperglycemia: R Patient Instructions: Have 3-5 small meals per day having a combination of protein at least 2-3 serving of protein choosing a moderate amount of carbohydrate 20-30 g of carbs oer meal , choosing nutrient dense foods Choose a variety of foods low in fat , keep a food record for further review Take creon as prescribed by your doctor include acidic vegetables in your meals (tomato in sandwiches, oickled vegetables as part of your meal for better absorption of nutrients, choose low fat food options see ideas of meals low in fat (ex 1 cup of cheerios with 1 cup of 1 % milk and boiled egg or 1 slice of bread with tomato/ham/cheese and 1 /2 c fruit cup , 1/2 cup of potato or rice/noodles, 1 cup o f cooked vegetables of choice and 2-3 oz of poultry/fish/eggs/lean beef, baked or steamed foods vs deep fried Include a glucerna shake as part of your snack Ex -1/2 glucerna shake with 1/2 -1 c of low sugar cereal(cheerios, oats, as example) Glucerna coupons provided - Pt reports not fond of meal replacements Coding Level of Care Code Nutr Indiv Intake (17888) Diagnoses Other specified diabetes mellitus without complications E13.9 Time Spent (min) 30
[2023-07-31 14:04] VITALS: BMI 24.4
== END 2023-07-31 10:47 | disposition home or self-care (01) ==
PROVIDERS: PCP Internal Medicine; Visit Provider Dietitian, Registered
DX: E13.9 Other specified diabetes mellitus without complications (principal)

== ENCOUNTER → 2023-07-31 09:54 | Outpatient (BNVA) | payer MEDICARE, BC, SELFPAY | PROVIDERS: PCP Internal Medicine; Visit Provider Dietitian, Registered | DX: E13.9 Other specified diabetes mellitus without complications (principal) | CPT/HCPCS: 97802 ==

== ENCOUNTER 2023-08-01 09:56 | Outpatient (AMB) | payer MEDICARE, BC, SELFPAY ==
--- NOTE | 2023-08-01 10:37 | A.OFFVIS_ITS ---
Intake Intake Visit Reasons: T2DM/CONFIRMED Irrigation Equipment Remover Required: No Accompanied by: Self / Same As Patient Allergies ibuprofen [IBUPROFEN] Allergy (Intermediate, Verified 06/01/23 13:48) ANKLE/FOOT SWELLING minocycline Allergy (Unknown, Verified 06/01/23 13:48) Hives HPI Comprehensive Diabetes Asmnt Most Recent Diabetes Results: Hemoglobin A1c 5.7 % 12/13/19 Microalb/Creat Ratio 9.0 ug/mg cr 12/13/19 Cholesterol 219 MG/DL 12/13/19 HDL Cholesterol 71 MG/DL 12/13/19 Triglycerides 93 MG/DL 12/13/19 Creatinine 0.79 mg/dL (0.5-1.4) 11/14/22 Blood Urea Nitrogen 16 mg/dL (9-16) 11/14/22 Sodium 135 mmol/L (135-145) 11/14/22 Potassium 4.4 mmol/L (3.3-5.1) 11/14/22 Chloride 102 mmol/L (96-108) 11/14/22 Carbon Dioxide 27 mmol/L (22-29) 11/14/22 Calcium 8.8 mg/dL (8.4-10.2) 11/14/22 AST 39 U/L (5-31) H 11/14/22 ALT 57 U/L (0-31) H 11/14/22 Total Protein 6.1 g/dL (6.5-8.0) L 11/14/22 Albumin 3.6 g/dL (3.5-5.0) 11/14/22 [facility] Medical History (Updated 07/31/23 @ 13:[address], LDN) Hypoglycemia Vitamin D deficiency History of diabetes mellitus Surgical History History of bariatric surgery Hx of repair of right rotator cuff Hx of colonoscopy with polypectomy Hx of tubal ligation Hx of cholecystectomy Hx of section Hx of tonsillectomy Family History Father No problems noted. Mother No problems noted. Social History Household Members: Significant Other Housing: House Do you presently have visiting nurse or other home services: No Alcohol intake: current Alcohol intake frequency: holidays/special occasions only Alcohol type: wine Patient Tobacco Use Status: Never used Tobacco service: No Current occupational status: retired Assessment & Plan Assessment & Plan (1) Other specified diabetes mellitus without complications: Comment: Acquired total absence of pancreas in 06/2023 Code(s): E13.9 - Other specified diabetes mellitus without complications Plan: Learning objectives: The patient was provided with verbal and written education on the following topics as outlined below. Assess patient education level/literacy/barriers Patient questions/concerns, patient underwent Whipple in June 2023 due to diagnosis of pancreatic cancer. Patient has not been monitoring glucose since being discharged from hospital. The patient met all learning objectives and was able to verbalize understanding and provide teach back of education topics discussed . The patient was provided with the opportunity to ask questions and all questions were answered. Topics covered in today?s session included: CGM Info Instructed Pt on what CGM can and can't do CGM Can: Give Pt minute by minute reading of glucose levels Displays glucose trend arrows that represents the direction glucose levels are fluctuating Give insight on decisions about how to dose insulin CGM cannot: Improve glucose control on its own Completely eliminate the need for all finger sticks Make dosing decision for you Reviewed Medicare guidelines for obtaining CGM Patient left visit with Dexcom G7 sensor in warmup Hypoglycemia and Hyperglycemia * Signs and symptoms? * Causes?? * Treatment? * Preventing hypoglycemia? * When to seek medical attention * Blood glucose targets and how you feel when your blood glucose is in and out of your target ranges. * Monitoring and knowing your A1C. * What can make blood glucose go up and down and preventing high and low blood glucose. * Review of blood sugar targets in expected goal range and outside of expected goal range. * Problem solving and preventing hyper/hypoglycemia. * Sick day management of diabetes. * Using blood sugar results in decision making process in managing diabetes. ?Patient was receptive to information provided and participated in the discussion. Asked?appropriate questions and demonstrated good understanding of the topics discussed.? ? Educational Materials: The patient was provided with the following written educational materials: Target Goal handout Patient Response to instructions: Comprehension of Instructions: good Readiness to make changes:? Contemplation How confident they feel about making changes:positive Patient Instructions: Patient instruction: CGM provides information on blood glucose control throughout the day, including hyperglycemia and hypoglycemia. ? Continue to monitor blood glucose as instructed. Follow nutrition guidelines provided. Report any discomfort promptly to health care provider. ?Stay well-hydrated. You can bathe ,shower, swim and exerce while wearing the glucose sensor. Do not submerge glucose sensor in water for more than 30 minutes. Remove sensor for MRI or CAT scan. Avoid Xray machine in airports - remove sensor or request wand Patient will follow-up in 10 days with Diabetes Education nurse Coding Level of Care Code Est Pt Level 1 (88003) Diagnoses Other specified diabetes mellitus without complications E13.9
== END 2023-08-01 10:50 | disposition home or self-care (01) ==
PROVIDERS: PCP Internal Medicine; Visit Provider Registered Nurse Diabetes Educator
DX: E13.9 Other specified diabetes mellitus without complications (principal)

== ENCOUNTER → 2023-08-01 09:56 | Outpatient (BNVA) | payer MEDICARE, BC, SELFPAY | PROVIDERS: PCP Internal Medicine; Visit Provider Registered Nurse Diabetes Educator | DX: E13.9 Other specified diabetes mellitus without complications (principal); Z71.89 Other specified counseling | CPT/HCPCS: 99211 ==

== ENCOUNTER 2023-08-16 09:52 | Outpatient (AMB) | payer MEDICARE, BC, SELFPAY ==
--- NOTE | 2023-08-16 10:05 | A.OFFVIS_ITS ---
Intake Vital Signs 08/16/23 10:06 Height 4 ft 7 in Weight 106 lb 0.677 oz BMI 24.6 BP 124/66 Blood Pressure Location Lt brachial Position Sitting Pulse 84 Pulse Source Pulse Oximeter Intake Visit Reasons: F/U NIPHS-confirmed Intake Note: Patient present today for NIPHS and Diabetes follow up visit. 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 Accompanied by: Self / Same As Patient Allergies ibuprofen [IBUPROFEN] Allergy (Intermediate, Verified 08/16/23 10:13) ANKLE/FOOT SWELLING minocycline Allergy (Unknown, Verified 08/16/23 10:13) Hives Medication List - Last Reconciled 08/16/23 by Florian Angel MD acarbose 50 mg (2 x 25 mg) PO TID 30 days acetaminophen ER (Tylenol Arthritis Pain) 650 mg PO Q12H amlodipine 2.5 mg PO DAILY ascorbate calcium (vitamin C) 500 mg PO DAILY calcium carbonate 600 mg PO BID glucosamine sulfate (Glucosamine) 500 mg PO BID mnvkwr-ojnrtjgs-puguuyj 24,000-76,000 -120,000 unit (Creon) 2 caps PO TID magnesium 200 mg PO DAILY melatonin 10 mg PO BEDTIME PRN multivitamin (Daily Multi-Vitamin tablet) 1 tab PO DAILY omega-3 fatty acids 1,000 mg PO DAILY HPI HPI Comments History of Present Illness Details riatric Surgery with Angy-En-Y at the age of 47 who is seen in F/U after pancreatectomy She reports a history of T2DM, which resolved 17 years ago after she underwent Angy-En-Y gastric bypass. She did regain weight, and Diabetes returned, but then lost weight again and has remained off of any diabetes meds for at least a few years. At her initial visit she reported a few months feeling symptoms of lightheadedness, confusion, tremors and blurred vision a few times per week shortly before lunch. This is approximately 2 hours after eating her usual breakfast of Oatmeal with an apple. Symptoms resolved within 20 minutes of eating something. She underwent evaluation for hypoglycemia and was found to have a significant decline in her sugar at the 2 hour point on her 4 hour OGTT. 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 She was asked to eat a very low carbohydrate diet, and start Acarbose 25 mg PO AC, and this was titrated upward to 50 mg PO AC. She reports that symptoms have drastically improved since starting the acarbose and changing her diet. She has no complaints today. Labs: Laboratory Tests 04/19/22 04/19/22 06:30 06:30 Creatinine 0.84 Estimated GFR > 60 Random Glucose 105 Hemoglobin A1c % 5.7 S/P Whipple procedure due to pancreatic cancer next wk. Getting chemo which contains steroids . Getting nikos for another mo Lisette download shows use of the sense of 79% of the time. Average glucose is 184 with standard deviation of 61. 61% range with 39% hyperglycemia and no hypoglycemia per pen shows elevation post lunch and post dinner. [facility] Medical History (Updated 08/16/23 @ 14:07 by Florian Angel MD) Hypoglycemia Vitamin D deficiency History of diabetes mellitus Surgical History History of bariatric surgery Hx of repair of right rotator cuff Hx of colonoscopy with polypectomy Hx of tubal ligation Hx of cholecystectomy Hx of section Hx of tonsillectomy Family History Father No problems noted. Mother No problems noted. Social History Household Members: Significant Other Housing: House Do you presently have visiting nurse or other home services: No Alcohol intake: current Alcohol intake frequency: holidays/special occasions only Alcohol type: wine Patient Tobacco Use Status: Never used Tobacco service: No Current occupational status: retired Physical Exam Vital Signs: Last Vital Signs Pulse 84 08/16/23 10:06 BP 124/66 08/16/23 10:06 BMI result Body Mass Index 24.6 Absence of Cushingoid features. Absence of acromegalic features. Neck exam reveals nl size thyroid about 15 gms. No thyroid nodules palpable. No carotid bruits present. Lungs CTA. Heart S1 S2, Reg R/R. No M/R/ G. Skin exam reveals absence of vitiligo or acanthosis nigricans. Abdominal exam reveals Soft NT/ND with NA BS. No organomegaly present. Neck Other: . Extrem Other: Visual exam of foot performed. No ulcerations or open lesions. No onchomycosis, no callouses.Pulses 2 + distally Sensation intact to monofilament exam. Vibratory sensation sensed is intact with 128 Hz tuning fork Results AMB Hemoglobin A1c AMB Hemoglobin A1c 7.3 % Last Edit by HAROON Otero on 08/16/23 11:54 Results Reviewed Results Reviewed: Laboratory Last Values Glucose (Clinic) 125 mg/dL (60-115) H 08/16/23 10:22 Hgb A1c (Clinic) 7.3 % (4.0-6.0) H 08/16/23 10:25 Assessment & Plan Assessment & Plan (1) Diabetes: Code(s): E11.9 - Type 2 diabetes mellitus without complications Plan This is a 67-year-old white female status post Whipple procedure pancreatic cancer and post-partial pancreatectomy diabetes. Saw educator and goodwill representative. Prandial elevation is probably reflection of steroids given during chemo for Will initiate Humalog correction scale 4 point of care > 200 4 units and point of care > 250 6 units. Patient we would clinical staff educator next week to learn how to administer insulin we will continue to use the sensor. If her hypoglycemia becomes worse during that time, patient was told to call so we can get a sooner appointment to learn insulin injection Orders: Orders AMB Hemoglobin A1c Today E13.9 - Other specified diabetes mellitus without complications Medications: New insulin lispro (Humalog KwikPen (U-100) Insulin) subcutaneously 3 times a day; use scale >200 4 units and >250 6 units 30 mL 4RF pen needle, diabetic (Comfort EZ Pen [place]) As directed 100 ea 3RF blood-glucose sensor (Dexcom G7 Sensor device) As directed change every 10 days 3 ea 4RF Coding Level of Care Code Est Pt Level 4 (93607) Diagnoses Diabetes E11.9
[2023-08-16 10:06] VITALS: BP 124/66; PULSE 84; BMI 24.6
[2023-08-16 10:26] LABS: Glucose, Whole Blood 125 mg/dL (60-115)
== END 2023-08-16 10:44 | disposition home or self-care (01) ==
PROVIDERS: PCP Internal Medicine; Visit Provider Internal Medicine Endocrinology, Diabetes & Metabolism
DX: E13.9 Other specified diabetes mellitus without complications (principal); E11.9 Type 2 diabetes mellitus without complications
CPT/HCPCS: 99214

== ENCOUNTER → 2023-08-16 09:52 | Outpatient (BNVA) | payer MEDICARE, BC, SELFPAY | PROVIDERS: PCP Internal Medicine; Visit Provider Internal Medicine Endocrinology, Diabetes & Metabolism | DX: E11.9 Type 2 diabetes mellitus without complications (principal); Z79.4 Long term (current) use of insulin | CPT/HCPCS: 82947; 83036; 99212 ==

== ENCOUNTER 2023-08-22 15:24 | Outpatient (AMB) | payer MEDICARE, BC, SELFPAY ==
--- NOTE | 2023-08-22 16:13 | MHC.AMDMED ---
Intake Intake Visit Reasons: DM Laminator Preforms Required: No Accompanied by: Significant Other Allergies ibuprofen [IBUPROFEN] Allergy (Intermediate, Verified 08/16/23 10:13) ANKLE/FOOT SWELLING minocycline Allergy (Unknown, Verified 08/16/23 10:13) Hives HPI Comprehensive Diabetes Asmnt Most Recent Diabetes Results: Hemoglobin A1c 5.7 % 12/13/19 Microalb/Creat Ratio 9.0 ug/mg cr 12/13/19 Cholesterol 219 MG/DL 12/13/19 HDL Cholesterol 71 MG/DL 12/13/19 Triglycerides 93 MG/DL 12/13/19 Creatinine 0.79 mg/dL (0.5-1.4) 11/14/22 Blood Urea Nitrogen 16 mg/dL (9-16) 11/14/22 Sodium 135 mmol/L (135-145) 11/14/22 Potassium 4.4 mmol/L (3.3-5.1) 11/14/22 Chloride 102 mmol/L (96-108) 11/14/22 Carbon Dioxide 27 mmol/L (22-29) 11/14/22 Calcium 8.8 mg/dL (8.4-10.2) 11/14/22 AST 39 U/L (5-31) H 11/14/22 ALT 57 U/L (0-31) H 11/14/22 Total Protein 6.1 g/dL (6.5-8.0) L 11/14/22 Albumin 3.6 g/dL (3.5-5.0) 11/14/22 [facility] Medical History (Updated 08/16/23 @ 14:07 by Florian Angel MD) Hypoglycemia Vitamin D deficiency History of diabetes mellitus Surgical History History of bariatric surgery Hx of repair of right rotator cuff Hx of colonoscopy with polypectomy Hx of tubal ligation Hx of cholecystectomy Hx of section Hx of tonsillectomy Family History Father No problems noted. Mother No problems noted. Social History Household Members: Significant Other Housing: House Do you presently have visiting nurse or other home services: No Alcohol intake: current Alcohol intake frequency: holidays/special occasions only Alcohol type: wine Patient Tobacco Use Status: Never used Tobacco service: No Current occupational status: retired Assessment & Plan Assessment & Plan (1) Other specified diabetes mellitus without complications: Comment: Acquired total absence of pancreas in 06/2023 Code(s): E13.9 - Other specified diabetes mellitus without complications Plan: Patient at visit to set up an insert Dexcom G7 Instructed patient sensors water proof you can shower, or swim do not submerge sensor in water for over 30 minutes Is sensor falls off cannot put back in you need to replace sensor, customer service number given to patient for sensor replacement Sensor placed on the back of L arm Patient left visit with sensor in warmup Reviewed how to interpret trend arrows Reminded patient that to check finger sticks if symptoms do not match sensor reading. Discussed lag time between finger stick and sensor data.? Instructed patient she should always keep blood glucometer for backup testing if needed Reviewed delay of CGM from fingersticks Reminded pt that if symptoms do not match sensor still needs to check fingersticks. Insulin/Incretin?Mimetic Education visit Patient will start Humalog correction scale for hyperglycemia Patient Education: Patient was instructed and provided with demonstration of the following: Insulin action and Incretin Mimetics medication storage how to set up medication pen/or syringe and vial Handwashing insulin injection site rotation Site rotation recognizing hypertrophy Testing blood glucose Removing and disposing needle from insulin pen Safe disposal of sharps Target blood sugar Signs/ symptoms/treatment of hypoglycemia/hyperglycemia expiration of open insulin pen Patient verbalized understanding of education provided and was able to demonstrate proper use of inject into injection pillow Reviewed rule of 15s to treat glucose under 70 mg/dL Patient will take Humalog 4 units if glucose is greater than 200 mg/dL, patient will take Humalog 6 units glucose is greater than 250 mg/dL All questions were answered and patient was advised to contact the office with any questions or concerns. Coding Level of Care Code Est Pt Level 1 (79608) Diagnoses Other specified diabetes mellitus without complications E13.9
== END 2023-08-22 16:23 | disposition home or self-care (01) ==
PROVIDERS: PCP Internal Medicine; Visit Provider Registered Nurse Diabetes Educator
DX: E13.9 Other specified diabetes mellitus without complications (principal)

== ENCOUNTER → 2023-08-22 15:24 | Outpatient (BNVA) | payer MEDICARE, BC, SELFPAY | PROVIDERS: PCP Internal Medicine; Visit Provider Registered Nurse Diabetes Educator | DX: E13.9 Other specified diabetes mellitus without complications (principal); Z79.4 Long term (current) use of insulin | CPT/HCPCS: 99211 ==

== ENCOUNTER 2023-09-05 13:59 | Outpatient (AMB) | payer MEDICARE, BC, SELFPAY ==
--- NOTE | 2023-09-05 14:23 | A.OFFVIS_ITS ---
Intake Intake Visit Reasons: DM Rn Social Work Required: No Accompanied by: Self / Same As Patient Allergies ibuprofen [IBUPROFEN] Allergy (Intermediate, Verified 08/16/23 10:13) ANKLE/FOOT SWELLING minocycline Allergy (Unknown, Verified 08/16/23 10:13) Hives JONATHAN Comprehensive Diabetes Asmnt Most Recent Diabetes Results: Hemoglobin A1c 5.7 % 12/13/19 Microalb/Creat Ratio 9.0 ug/mg cr 12/13/19 Cholesterol 219 MG/DL 12/13/19 HDL Cholesterol 71 MG/DL 12/13/19 Triglycerides 93 MG/DL 12/13/19 Creatinine 0.79 mg/dL (0.5-1.4) 11/14/22 Blood Urea Nitrogen 16 mg/dL (9-16) 11/14/22 Sodium 135 mmol/L (135-145) 11/14/22 Potassium 4.4 mmol/L (3.3-5.1) 11/14/22 Chloride 102 mmol/L (96-108) 11/14/22 Carbon Dioxide 27 mmol/L (22-29) 11/14/22 Calcium 8.8 mg/dL (8.4-10.2) 11/14/22 AST 39 U/L (5-31) H 11/14/22 ALT 57 U/L (0-31) H 11/14/22 Total Protein 6.1 g/dL (6.5-8.0) L 11/14/22 Albumin 3.6 g/dL (3.5-5.0) 11/14/22 [facility] Medical History (Updated 08/16/23 @ 14:07 by Florian Angel MD) Hypoglycemia Vitamin D deficiency History of diabetes mellitus Surgical History History of bariatric surgery Hx of repair of right rotator cuff Hx of colonoscopy with polypectomy Hx of tubal ligation Hx of cholecystectomy Hx of section Hx of tonsillectomy Family History Father No problems noted. Mother No problems noted. Social History Household Members: Significant Other Housing: House Do you presently have visiting nurse or other home services: No Alcohol intake: current Alcohol intake frequency: holidays/special occasions only Alcohol type: wine Patient Tobacco Use Status: Never used Tobacco service: No Current occupational status: retired Assessment & Plan Assessment & Plan (1) Other specified diabetes mellitus without complications: Comment: Acquired total absence of pancreas in 06/2023 Code(s): E13.9 - Other specified diabetes mellitus without complications Plan: Personal Continuous Glucose Monitor: Patients CGM information reviewed Reviewed patient's sensor data: Hypoglycemia: ? 0% Hyperglycemia:?20% Time in Range:? 80% Average glucose for the last 2 weeks? 156 mg/dL Patient reports she only had to use correction scale 2 times in the last week. There was 1 episode of hypoglycemia, which she reports she did not have symptoms for. She did not do a fingerstick at this time. Explained to patient that if she is not experiencing symptoms of hypoglycemia, she should double check with a glucometer. Will request glucometer prescription, strips and lancets No changes made to patient's Humalog correction scale Patient did say that she is now more comfortable injecting herself Instructed patient if her glucose stays elevated greater than 200 for 2 or 3 days to contact [facility] Reviewed how to interpret trend arrows Reminded patient that to check finger sticks if symptoms do not match sensor reading. Discussed lag time between finger stick and sensor data.? Patient able to insert sensor independently at home without issue.? Patient Instructions: Patient instruction: CGM provides information on blood glucose control throughout the day, including hyperglycemia and hypoglycemia. ? Continue to monitor blood glucose as instructed. Follow nutrition guidelines provided. Report any discomfort promptly to health care provider. ?Stay well-hydrated. You can bathe ,shower, swim and exerce while wearing the glucose sensor. Do not submerge glucose sensor in water for more than 30 minutes. Remove sensor for MRI or CAT scan. Avoid Xray machine in airports - remove sensor or request wand Follow-up with casework supervisor in 3 months Coding Level of Care Code Est Pt Level 1 (51386) Diagnoses Other specified diabetes mellitus without complications E13.9
== END 2023-09-05 14:30 | disposition home or self-care (01) ==
PROVIDERS: PCP Internal Medicine; Visit Provider Registered Nurse Diabetes Educator
DX: E13.9 Other specified diabetes mellitus without complications (principal)

== ENCOUNTER → 2023-09-05 13:59 | Outpatient (BNVA) | payer MEDICARE, BC, SELFPAY | PROVIDERS: PCP Internal Medicine; Visit Provider Registered Nurse Diabetes Educator | DX: E13.9 Other specified diabetes mellitus without complications (principal) | CPT/HCPCS: 99211 ==

== ENCOUNTER 2023-09-11 09:25 | Outpatient (AMB) | payer MEDICARE, BC, SELFPAY ==
--- NOTE | 2023-09-11 09:32 | MHC.AMNUTRGE ---
Intake VS Expanded 09/11/23 09:34 Height 4 ft 7 in Weight 102 lb 11.767 oz BMI 23.9 Intake Visit Reasons: T2DM/ VM NOT SET UP Allergies ibuprofen [IBUPROFEN] Allergy (Intermediate, Verified 08/16/23 10:13) ANKLE/FOOT SWELLING minocycline Allergy (Unknown, Verified 08/16/23 10:13) Hives HPI Nutrition Presentation Details Pt presents for MNT for T2DM Pt reports doing well, last chemo was last week. Pt reports including a variety of food coffee with fair life milk B: 2 -3 eggs with spinach - no bread/fruits/milk L: salad with chicken D: 1/2 sweet potato, salmon and broccoli Reports having 3 cup of water flavored or tea dairy: fat free fair life fruits: 1-2 /day ve serving/d milk: fat free milk 1-2 serving/d starches 6-8 serving/d physical activity: daily life activities ETOH Smoking: denies Pt denies vomiting, reports having a daily bowel movemnt has questions about carbs/portion sizes. Reports she is concerned about re gaining weight. Med Hx pancreactomy in 06/2023 , [place] [facility] [place] treatment last week. Pt reports eating 3 meals a day , taking creon 2 tabs before each meal and reports having snack in between Pt has hx of Angy en Y gastric bypass surgery over around Most Recent Diabetes Results: No Data to Display [facility] Medical History (Updated 08/16/23 @ 14:07 by Florian Angel MD) Hypoglycemia Vitamin D deficiency History of diabetes mellitus Surgical History History of bariatric surgery Hx of repair of right rotator cuff Hx of colonoscopy with polypectomy Hx of tubal ligation Hx of cholecystectomy Hx of section Hx of tonsillectomy Family History Father No problems noted. Mother No problems noted. Social History Household Members: Significant Other Housing: House Do you presently have visiting nurse or other home services: No Alcohol intake: current Alcohol intake frequency: holidays/special occasions only Alcohol type: wine Patient Tobacco Use Status: Never used Tobacco service: No Current occupational status: retired Assessment & Plan Assessment & Plan (1) Other specified diabetes mellitus without complications: Comment: Acquired total absence of pancreas in 06/2023 Code(s): E13.9 - Other specified diabetes mellitus without complications Plan: Wt: 48 Kg ( 07/2023 ), 47 kg (09/2023) Est kcal needs as per MSJ: 1200 (40% carb, 30% protein/fat) Est fluid needs as per 25-30 ml/d: 1200 Est prot per day as per 1 g/kg bw: 48 Recommend fiber intake : 8-10 g per day and gradually increase to 25-28 g per day for women and 35-38 g for men or as tolerated Recommend sodium intake per day : less than 1500 mg - less than 2000 mg Educated patient on: ( R = reviewed V = verbalizes understanding N/R = needs review N/A = not applicable Food sources of carbohydrate, adequate serving sizes and its role in various health conditions: R V Differences between complex carbohydrates a simple carbohydrates, role of fiber in diet: R V Lean protein sources of foods: R V Differences between types of fats and role in diet (mono on saturated fat fatty acids, saturated fatty acids, trans fats): R basic low fat Food sources of sodium in salt and healthy modifications for heart health in kidney health: NR Vitamins and minerals: R V Healthy plate method concept: R Physical activity: Benefits a precaution: R Hypoglycemia protocol (rule of 15): N/R Dietary prevention of Hyperglycemia: R relationship of fat for vitamin /mineral absorption: R Patient Instructions: Switch to 1% milk from fat free milk Include a variety of foods in your diet following healthy plate method Keep hydrated by having water, milk with your meals Coding Level of Care Code Nutr Indiv Subseq (69606) Diagnoses Other specified diabetes mellitus without complications E13.9 Time Spent (min) 30
[2023-09-11 09:34] VITALS: BMI 23.9
== END 2023-09-11 10:02 | disposition home or self-care (01) ==
PROVIDERS: PCP Internal Medicine; Visit Provider Dietitian, Registered
DX: E13.9 Other specified diabetes mellitus without complications (principal)

== ENCOUNTER → 2023-09-11 09:25 | Outpatient (BNVA) | payer MEDICARE, BC, SELFPAY | PROVIDERS: PCP Internal Medicine; Visit Provider Dietitian, Registered | DX: E13.9 Other specified diabetes mellitus without complications (principal) | CPT/HCPCS: 97803 ==

== ENCOUNTER 2023-11-15 12:56 | Outpatient (AMB) | payer MEDICARE, BC, SELFPAY ==
--- NOTE | 2023-11-15 12:57 | MHC.OFFVIS ---
Vital Signs 11/15/23 12:58 Height 4 ft 7 in Weight 101 lb 10.13 oz BMI 23.6 BP 130/66 Blood Pressure Location Rt brachial Position Sitting Pulse 57 Pulse Source Pulse Oximeter Intake Visit Reasons: F/U NIPHS/UNABLE TO LVM Intake Note: Patient presents today to follow up on NIP. 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 She did regain weight, and Diabetes returned, but then lost weight again and has remained off of any diabetes meds for at least a few years. At her initial visit she reported a few months feeling symptoms of lightheadedness, confusion, tremors and blurred vision a few times per week shortly before lunch. This is approximately 2 hours after eating her usual breakfast of Oatmeal with an apple. Symptoms resolved within 20 minutes of eating something. She underwent evaluation for hypoglycemia and was found to have a significant decline in her sugar at the 2 hour point on her 4 hour OGTT. 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 She was asked to eat a very low carbohydrate diet, and start Acarbose 25 mg PO AC, and this was titrated upward to 50 mg PO AC. She reports that symptoms have drastically improved since starting the acarbose and changing her diet. She has no complaints today. Labs: Laboratory Tests 04/19/22 04/19/22 06:30 06:30 Creatinine 0.84 Estimated GFR > 60 Random Glucose 105 Hemoglobin A1c % 5.7 Current regimen for diabetes is correction NovoLog point of care > 200 4 units and point of care > 250 6 units. Dexcom download shows average glucose to be 138 with standard deviation of 32 and G mi of 6.6%. 89% range with 11% hyperglycemia no hypoglycemia [facility] Medical History (Updated 08/16/23 @ 14:07 by Florian Angel MD) Hypoglycemia Vitamin D deficiency History of diabetes mellitus Surgical History (Updated 11/15/23 @ 13:13 by HAROON Diggs) History of Whipple procedure History of bariatric surgery Hx of repair of right rotator cuff Hx of colonoscopy with polypectomy Hx of tubal ligation Hx of cholecystectomy Hx of section Hx of tonsillectomy Family History Father No problems noted. Mother No problems noted. Social History Household Members: Significant Other Housing: House Do you presently have visiting nurse or other home services: No Alcohol intake: current Alcohol intake frequency: holidays/special occasions only Alcohol type: wine Patient Tobacco Use Status: Never used Tobacco service: No Current occupational status: retired Physical Exam Vital Signs: Last Vital Signs Pulse 57 11/15/23 12:58 BP 130/66 11/15/23 12:58 BMI result Body Mass Index 23.6 Absence of Cushingoid features. Absence of acromegalic features. Neck exam reveals nl size thyroid about 15 gms. No thyroid nodules palpable. No carotid bruits present. Lungs CTA. Heart S1 S2, Reg R/R. No M/R/ G. Skin exam reveals absence of vitiligo or acanthosis nigricans. Abdominal exam reveals Soft NT/ND with NA BS. No organomegaly present. Neck Other: . Extrem Other: Visual exam of foot performed. No ulcerations or open lesions. No onchomycosis, no callouses.Pulses 2 + distally Sensation intact to monofilament exam. Vibratory sensation sensed is intact with 128 Hz tuning fork Results AMB Hemoglobin A1c AMB Hemoglobin A1c 6.4 % Last Edit by HAROON Diggs on 11/15/23 13:19 Results Reviewed Results Reviewed: Laboratory Last Values Glucose (Clinic) 128 mg/dL (60-115) H 11/15/23 13:09 Assessment & Plan Assessment & Plan (1) Diabetes: Code(s): E11.9 - Type 2 diabetes mellitus without complications Category: Medical Plan This is a 67-year-old white female status post Whipple procedure pancreatic cancer and post-partial pancreatectomy diabetes. Currently on correction dose NovoLog with excellent glycemic control. Also using acarbose Plan is to continue the current regimen. At this point, patient can follow up with the primary care provider returned back to endocrinology should HbA1c deteriorate Orders: Orders AMB Hemoglobin A1c Today E11.9 - Type 2 diabetes mellitus without complications, Z13.9 - Encounter for screening, unspecified Coding Level of Care Code Est Pt Level 4 (02066) Diagnoses Diabetes E11.9
[2023-11-15 12:58] VITALS: BP 130/66; PULSE 57; BMI 23.6
[2023-11-15 13:13] LABS: Glucose, Whole Blood 128 mg/dL (60-115)
== END 2023-11-15 13:25 | disposition home or self-care (01) ==
PROVIDERS: PCP Internal Medicine; Visit Provider Internal Medicine Endocrinology, Diabetes & Metabolism
DX: Z13.9 Encounter for screening, unspecified (principal); E11.9 Type 2 diabetes mellitus without complications
CPT/HCPCS: 99214

== ENCOUNTER → 2023-11-15 12:56 | Outpatient (BNVA) | payer MEDICARE, BC, SELFPAY | PROVIDERS: PCP Internal Medicine; Visit Provider Internal Medicine Endocrinology, Diabetes & Metabolism | DX: Z90.410 Acquired total absence of pancreas (principal); E89.1 Postprocedural hypoinsulinemia; E13.9 Other specified diabetes mellitus without complications; Z85.07 Personal history of malignant neoplasm of pancreas | CPT/HCPCS: 82947; 83036; 99212 ==

== ENCOUNTER 2023-12-05 13:52 | Outpatient (AMB) | payer MEDICARE, BC, SELFPAY ==
--- NOTE | 2023-12-05 14:17 | A.OFFVIS_ITS ---
Intake Intake Visit Reasons: 30 min Brush Or Broom Cutter Required: No Accompanied by: Self / Same As Patient Allergies ibuprofen [IBUPROFEN] Allergy (Intermediate, Verified 11/15/23 13:06) ANKLE/FOOT SWELLING minocycline Allergy (Unknown, Verified 11/15/23 13:06) Hives HPI Comprehensive Diabetes Asmnt Most Recent Diabetes Results: No Data to Display [facility] Medical History (Updated 08/16/23 @ 14:07 by Florian Angel MD) Hypoglycemia Vitamin D deficiency History of diabetes mellitus Surgical History (Updated 11/15/23 @ 13:13 by HAROON Diggs) History of Whipple procedure History of bariatric surgery Hx of repair of right rotator cuff Hx of colonoscopy with polypectomy Hx of tubal ligation Hx of cholecystectomy Hx of section Hx of tonsillectomy Family History Father No problems noted. Mother No problems noted. Social History Household Members: Significant Other Housing: House Do you presently have visiting nurse or other home services: No Alcohol intake: current Alcohol intake frequency: holidays/special occasions only Alcohol type: wine Patient Tobacco Use Status: Never used Tobacco service: No Current occupational status: retired Assessment & Plan Assessment & Plan (1) Diabetes: Code(s): E11.9 - Type 2 diabetes mellitus without complications Plan: Learning objectives: The patient was provided with verbal and written education on the following topics as outlined below. The patient met all learning objectives and was able to verbalize understanding and provide teach back of education topics discussed . The patient was provided with the opportunity to ask questions and all questions were answered. Patient Assessment Assess patient education level/literacy/barriers Patient questions/concerns, patient's last A1c 11/19/2023 6.4%. At last visit with Dr. Angel he stopped insulin. patient is able to maintain target glucose levels with diet and exercise. Suggested to patient she feels she needs to make another appointment for Diabetes Education to call patient is no longer using Dexcom G7 sensor, doing fingersticks few times a week, all glucose numbers within target range Exercise Medical clearance Effect of exercise on blood sugar Start slowly and gradually increase pace/duration over time Goal amount of exercise Checking blood glucose/have a source of carbs with you Medications (If applicable) * Name of medication * Dosing/administration instructions * Mechanism of action * Potential side effects * Potential adverse reaction and appropriate treatment * Review onset, peak, duration Assess for concerns re: insurance coverage, cost, barriers to compliance Insulin/Injectables (If applicable) * Storage/care of insulin * Injection sites * Site rotation * Onset, peak, duration * Drawing up insulin * Injecting insulin/other injectables * Sharps disposal Continuous blood glucose monitoring (if applicable) Hypoglycemia and Hyperglycemia * Signs and symptoms * Causes * Treatment * Preventing hypoglycemia * When to seek medical attention Medical alert bracelet Lifestyle * Work * Travel * Stress management * Problem solving Know your goals * A1C * Blood sugar targets * Blood pressure * Cholesterol/LDL Urine microalbumin Educational Materials: The patient was provided with the following written educational materials: ADCES 7 Healthy Behaviors Reducing Risks handout Patient Response to instructions: Comprehension of Instructions: Readiness to make changes: a How confident they feel about making changes: Letter of completion of diabetes Education program will be sent to referring provider Portions of this note were created using voice recognition software, please excuse any words or phrases that may have been misinterpreted. Patient Instructions: Include regular daily activity. ADA recommends 30 minutes of exercise 5 days a week. Weight loss talk to PCP or Latex Dipper before starting new plan. Test blood sugar as directed; Fasting and 2hpp largest meal. Watch trends in results. Utilize results and to assess how food, physical activity and medications affect blood sugar results. Bring glucometer or CGM to next visit. Be knowledgeable about diabetes medication, its action, side effects, efficacy, toxicity, prescribed dosage, appropriate timing and frequency of administration, effect of missed and delayed doses and instructions for storage, travel and safety. Problem solving techniques to monitor hypo/hyperglycemia episodes and treatments. Reduce risk reduction behaviors, smoking cessation, regular eye, foot and dental examinations. Coding Level of Care Code Est Pt Level 1 (18609) Diagnoses Diabetes E11.9
== END 2023-12-05 14:20 | disposition home or self-care (01) ==
PROVIDERS: PCP Internal Medicine; Visit Provider Registered Nurse Diabetes Educator
DX: E11.9 Type 2 diabetes mellitus without complications (principal)

== ENCOUNTER → 2023-12-05 13:52 | Outpatient (BNVA) | payer MEDICARE, BC, SELFPAY | PROVIDERS: PCP Internal Medicine; Visit Provider Registered Nurse Diabetes Educator | DX: E11.9 Type 2 diabetes mellitus without complications (principal) | CPT/HCPCS: 99211 ==

== ENCOUNTER 2023-12-09 10:00 | Outpatient (AMB) | payer MEDICARE, BC, SELFPAY ==
--- NOTE | 2023-12-09 10:24 | MHC.OFFWIV ---
Intake Vital Signs 12/09/23 10:38 Height 4 ft 7 in Weight 100 lb BMI 23.2 BP 120/60 Blood Pressure Location Lt brachial Position Sitting Pulse 71 Pulse Source Pulse Oximeter Temp 98.0 F Temp Source Oral Pulse Oximetry (%) 98 Oxygen Delivery Method Room Air Intake Visit Reasons: EP Running temp, tired ,urinating more freq Intake Note: Pt is here today c/o frequent urination,fatigue Patient Tobacco Use Status: Never used Tobacco Allergies ibuprofen [IBUPROFEN] Allergy (Intermediate, Verified 12/09/23 10:37) ANKLE/FOOT SWELLING minocycline Allergy (Unknown, Verified 12/09/23 10:37) Hives HPI EP Running temp, tired ,urinating more freq HPI Details Patient is a 68-year-old female with history of diabetes, who comes to the walk-in clinic complaining of frequent urination, along with chills since having an iron infusion yesterday. She also reports associated fatigue, which has been going on for a while now. She reports that she had hoped that the fatigue when improve with the infusion. She denies pain with urination, fever, nausea vomiting or diarrhea, dizziness or weakness, headache, myalgias, chest pain or shortness of breath, back pain or abdominal pain, or other significant associated symptoms. [facility] Medical History Hypoglycemia Vitamin D deficiency History of diabetes mellitus Surgical History History of Whipple procedure History of bariatric surgery Hx of repair of right rotator cuff Hx of colonoscopy with polypectomy Hx of tubal ligation Hx of cholecystectomy Hx of section Hx of tonsillectomy Family History Father No problems noted. Mother No problems noted. Social History Household Members: Significant Other Housing: House Do you presently have visiting nurse or other home services: No Alcohol intake: current Alcohol intake frequency: holidays/special occasions only Alcohol type: wine Patient Tobacco Use Status: Never used Tobacco service: No Current occupational status: retired Review of Systems Const All systems reviewed & are unremarkable except as noted in HPI and below Physical Exam Vital Signs: Last Vital Signs Temp 98.0 F 12/09/23 10:38 Pulse 71 12/09/23 10:38 BP 120/60 12/09/23 10:38 Pulse Ox 98 12/09/23 10:38 Oxygen Delivery Method Room Air 12/09/23 10:38 BMI result Body Mass Index 23.2 Const General: cooperative, healthy appearing, comfortable, no acute distress, alert, awake, Physically active and well groomed; No diaphoretic, ill appearing, intoxicated appearing, poor hygiene or tired appearing Nutritional Appearance: average body habitus Orientation/consciousness: oriented to person Limitations: no limitations HEENT Head: Yes normal to inspection, Yes normocephalic and Yes atraumatic General nose exam: Normal external nose present, Normal nares present, No nasal polyps present, Normal nasal mucous membranes and turbinates present, Normal septum present and No nasal discharge present Face and sinus: Yes normal facial exam, Yes sinuses nontender and Yes face symmetric Mouth: Normal oral and palatal mucosa present, lip normal and tongue normal Throat: Yes posterior oropharynx normal, No peritonsillar mass, No postnasal drainage, No uvular edema and No cobblestoning Eyes General: appearance normal, both eyes and all related structures Resp Effort & Inspection: normal respiratory effort, able to speak in complete sentences, no audible wheezes, no cough, no grunting, not labored, no nasal flaring, no retractions and symmetric chest movement Auscultation: clear to auscultation bilaterally, no crackles, no rales, no rhonchi, no wheezes, lung sounds not diminished and No rub present Cardio Rate: regular rate Rhythm: regular rhythm General: Yes no CVA tenderness Back/Spine/Pelvis Back: no CVA tenderness Skin Other: Good color, warm and dry Neuro General: oriented to person Psych Appearance: grossly normal Mental Status: mental status grossly normal Speech and movement: Normal speech and movement present Affect: normal affect Attitude: cooperative Thought process: Normal thought process present Insight: Good insight present (Psych) Judgement: Good judgement present (Psych) Results AMB Urinalysis, Automated UA Leukoctes 0 Wilber/uL Last Edit by Sharmin Monreal CMA on 12/09/23 10:26 UA Nitrite Negative Last Edit by Sharmin Monreal CMA on 12/09/23 10:26 UA Urobilinogen 0.2 mg/dL Last Edit by Sharmin Monreal CMA on 12/09/23 10:26 UA Protein 0 mg/dL Last Edit by Sharmin Monreal, JORGE on 12/09/23 10:26 UA pH 5.5 Last Edit by Sharmin Monreal, JORGE on 12/09/23 10:26 UA Blood 0 Rob/uL Last Edit by Sharmin Monreal, JORGE on 12/09/23 10:26 UA Specific [place] 1.020 Last Edit by Sharmin Monreal, JORGE on 12/09/23 10:26 UA Ketone Negative Last Edit by Sharmin Monreal, JORGE on 12/09/23 10:26 UA Bilirubin 0 mg/dL Last Edit by Sharmin Monreal, JORGE on 12/09/23 10:26 UA Glucose 0 mg/dL Last Edit by Sharmin Monreal, JORGE on 12/09/23 10:26 Results Reviewed Results Reviewed: Laboratory Last Values Urine pH (Auto) 5.5 12/09/23 10:24 Specific [place] (Auto) 1.020 12/09/23 10:24 Urine Protein (Auto) 0 mg/dL 12/09/23 10:24 Glucose (UA)(Auto) 0 mg/dL 12/09/23 10:24 Urine Ketones (Auto) Negative 12/09/23 10:24 Urine Blood (Auto) 0 Rob/uL 12/09/23 10:24 Urine Nitrite (Auto) Negative 12/09/23 10:24 Urine Bilirubin (Auto) 0 mg/dL 12/09/23 10:24 Urine Urobilinogen (Auto) 0.2 mg/dL 12/09/23 10:24 Leukocyte Esterase (Auto) 0 Wilber/uL 12/09/23 10:24 Assessment & Plan Assessment & Plan (1) Increased urinary frequency: Code(s): R35.0 - Frequency of micturition Plan: Patient is a 68-year-old female who is status post iron infusion, and reports to the walk-in clinic complaining of urinary frequency which is already improving, as well as chills and persistent fatigue. Her office urine dip was unremarkable, she is afebrile, and her exam overall is stable and unremarkable. She has no other urinary symptoms including no dysuria, bladder pressure, abdominal pain, back pain or flank pain, and no other associated systemic infection symptoms. I think her symptoms might be due to the fluid load with having the transfusion, and she has already having improvement with frequency of urination. I did do PCR to rule out viruses, in case this is the cause of her chills and which is pending, and I ordered a CBC to see if she has an elevated white blood count, as she is anxious about this. I will send her urine out for microscopy and susceptibility testing. She can follow up with her heme Onc specialist further in regards to the CBC. She knows to follow up if symptoms persist or worsen, or go to the emergency department with worrisome symptoms. Orders: Orders Complete Blood Count Auto Diff 12/09/23 I95.9 - Hypotension, unspecified AMB Urinalysis Automated 12/09/23 Z13.9 - Encounter for screening, unspecified SARS-CoV2/FLU/RSV 12/09/23 J06.9 - Acute upper respiratory infection, unspecified UA CC w/rflx Micro + Cult 12/09/23 R30.0 - Dysuria Coding Level of Care Code Est Pt Level 4 (70859) Diagnoses Increased urinary frequency R35.0
[2023-12-09 10:38] VITALS: BP 120/60; PULSE 71; TEMP 36.7; O2SAT 98; BMI 23.2
== END 2023-12-09 12:01 | disposition home or self-care (01) ==
PROVIDERS: PCP Internal Medicine; Visit Provider Physician Assistant Medical
DX: R30.0 Dysuria (principal)
CPT/HCPCS: 81003; 99214

== ENCOUNTER 2023-12-09 11:37 | Outpatient (REF) | payer MEDICARE, BC, SELFPAY ==
[2023-12-09 13:01] LABS: MANUAL DIFF FLAG NO
[2023-12-09 13:03] LABS: Basophils Percent Auto 0.3 % (0-2); Eosinophils Absolute Auto 0.2 X10*3/uL (0.0-0.4); Eosinophils Percent Auto 2.2 % (0-4); Hemoglobin 9.6 g/dl (12.0-16.0); Imm Gran Abs Auto 0.02 X10*3/uL (0.00-0.03); Imm Gran Pct Auto 0.3 % (0.0-0.4); Lymphocytes Absolute Auto 1.6 X10*3/uL (1.2-4.9); Lymphocytes Percent Auto 22.4 % (20-40); Mean Corpuscular Hemoglobin 27.7 pg (27.0-33.0); Mean Corpuscular Volume 86.7 fL (80.0-98.0); Mean Platelet Volume 9.9 fL (9.4-12.3); Monocytes Percent Auto 13.2 % (2-11); Neutrophils Absolute Auto 4.5 x10*3/uL (2.0-8.3); Neutrophils Percent Auto 61.6 % (45-73); Platelet Count 268 X10*3/uL (160-400); Red Blood Count 3.46 X10*6/uL (4.20-5.50); Red Cell Distribution Width 17.1 % (11.0-16.0); White Blood Count 7.3 X10*3/uL (4.8-10.8)
[2023-12-09 14:09] LABS: Influenza A PCR NEGATIVE (Negative); Influenza B PCR NEGATIVE (Negative); Resp Syncy Virus RNA Qual PCR NEGATIVE (Negative); SARS COV2 PCR INHOUSE NEGATIVE (Negative)
== END 2023-12-09 11:38 | disposition home or self-care (01) ==
LOC: HO.HMGCLDS 11:37
PROVIDERS: Visit Provider Physician Assistant Medical
DX: I95.9 Hypotension, unspecified (principal); J06.9 Acute upper respiratory infection, unspecified
CPT/HCPCS: 0241U; 36415; 81003; 85025

== ENCOUNTER 2023-12-09 12:23 | Outpatient (REF) | payer MEDICARE, BC, SELFPAY | END 2023-12-09 12:24 | disposition home or self-care (01) | LOC: HO.LAB 12:23 | PROVIDERS: Visit Provider Physician Assistant Medical | DX: Z13.89 Encounter for screening for other disorder (principal) ==

== ENCOUNTER 2023-12-09 16:15 | Outpatient (REF) | payer MEDICARE, BC, SELFPAY ==
[2023-12-09 16:28] LABS: Appearance Urine Clear; Color Urine Dark Yellow; Glucose Urine UA Negative (Negative); Leukocyte Esterase Urine Negative (Negative); Nitrite Urine Negative (Negative); PH 5.5 (5.0-9.0); Specific Gravity - Urine 1.025 (1.005-1.025); Urine Blood Negative (Negative); Urine Ketones Trace mg/dL (Negative); Urine Protein Negative (Neg-Trace)
== END 2023-12-09 16:16 | disposition home or self-care (01) ==
LOC: HO.CHCLNP 16:15
PROVIDERS: Visit Provider Physician Assistant Medical
DX: Z13.89 Encounter for screening for other disorder (principal)
CPT/HCPCS: 81003

== ENCOUNTER 2024-03-13 10:53 | Outpatient (AMB) | payer MEDICARE, BC, SELFPAY ==
[2024-03-13 10:59] VITALS: BMI 24.1
--- NOTE | 2024-03-13 10:59 | A.OFFVIS_ITS ---
VS Expanded 03/13/24 10:59 Height 4 ft 7 in Weight 103 lb 13.404 oz BMI 24.1 Intake Visit Reasons: T2DM Allergies ibuprofen [IBUPROFEN] Allergy (Intermediate, Verified 12/09/23 10:37) ANKLE/FOOT SWELLING minocycline Allergy (Unknown, Verified 12/09/23 10:37) Hives Nutrition Presentation Details: Pt presents for MNT f/u for T2DM Pt reports lately stress eating and notices a slight increase in bg, monitors bg a couple of time int he week int he fasting state (bg ranging from 120-135) Continues to participate in [employer] activities, 5 days a week, and reports having participated in a couple of 5 K's Takes 2 calcium supplements per day and daily MVI fluids reports having 4-6 cups/water /tea or low sugar beverages day fruits 1-2/d dairy from cheese mainly 2 serving/d fish 1/wk nuts: cashews vegetables: 2 serving 3-6 times/wk Med Hx pancreactomy in 06/2023 [place] [facility] [place] creon 2 tabs before each meal Pt has hx of Angy en Y gastric bypass surgery 1990s BS Monitoring Most Recent Diabetes Results: No Data to Display [facility] Medical History Hypoglycemia Vitamin D deficiency History of diabetes mellitus Surgical History History of Whipple procedure History of bariatric surgery Hx of repair of right rotator cuff Hx of colonoscopy with polypectomy Hx of tubal ligation Hx of cholecystectomy Hx of section Hx of tonsillectomy Family History Father No problems noted. Mother No problems noted. Social History Household Members: Significant Other Housing: House Do you presently have visiting nurse or other home services: No Alcohol intake: current Alcohol intake frequency: holidays/special occasions only Alcohol type: wine Patient Tobacco Use Status: Never used Tobacco service: No Current occupational status: retired Assessment & Plan Assessment & Plan (1) Other specified diabetes mellitus without complications: Comment: Acquired total absence of pancreas in 06/2023 Code(s): E13.9 - Other specified diabetes mellitus without complications Category: Medical Plan: Wt: 48 Kg ( 07/2023 ), 47 kg (09/2023), 03/2024 Est kcal needs as per MSJ: 1200 (40% carb, 30% protein/fat) Est fluid needs as per 25-30 ml/d: 1200 Est prot per day as per 1 g/kg bw: 48 Recommend fiber intake : 8-10 g per day and gradually increase to 25-28 g per day for women and 35-38 g for men or as tolerated Recommend sodium intake per day : less than 1500 mg - less than 2000 mg Educated patient on: ( R = reviewed V = verbalizes understanding N/R = needs review N/A = not applicable * Food sources of carbohydrate, adequate serving sizes and its role in various health conditions: R V * Differences between complex carbohydrates a simple carbohydrates, role of fib er in diet: R V * Lean protein sources of foods: R V * Differences between types of fats and role in diet (mono on saturated fat fatty acids, saturated fatty acids, trans fats): R basic low fat * Food sources of sodium in salt and healthy modifications for heart health in kidney health: R * Vitamins and minerals: R V * Healthy plate method concept: R * Physical activity: Benefits a precaution: R * Hypoglycemia protocol (rule of 15): R * Dietary prevention of Hyperglycemia: R * relationship of fat for vitamin /mineral absorption: R Patient Instructions: Include food sources of omega 3 fatty acids in your meals at least 1 serving (fish, nuts, seeds, olives) Coding Level of Care Code Nutr Indiv Subseq (10063) Diagnoses Other specified diabetes mellitus without complications E13.9 Time Spent (min) 25
== END 2024-03-13 11:23 | disposition home or self-care (01) ==
LOC: HO.ENCR 10:53
PROVIDERS: PCP Internal Medicine; Visit Provider Dietitian, Registered
DX: E13.9 Other specified diabetes mellitus without complications (principal)

== ENCOUNTER → 2024-03-13 10:53 | Outpatient (BNVA) | payer MEDICARE, BC, SELFPAY | PROVIDERS: PCP Internal Medicine; Visit Provider Dietitian, Registered | DX: E13.9 Other specified diabetes mellitus without complications (principal); Z71.3 Dietary counseling and surveillance | CPT/HCPCS: 97803 ==

== ENCOUNTER 2024-03-30 07:33 | Emergency (ER) | payer MEDICARE, BC, SELFPAY ==
--- NOTE | ~2024-03-30 | CT_ITS ---
EXAMINATION: CT ABDOMEN AND PELVIS WITH CONTRAST CLINICAL INFORMATION: Epigastric/right upper quadrant pain. History of pancreatic neoplasm. COMPARISON: Abdominal MRI and CT abdomen and pelvis November 14, 2022 TECHNIQUE: Multidetector volumetric images were obtained from the superior aspect of the liver through the pubic symphysis following administration 85 mL of Omnipaque 350 intravenous contrast. Sagittal and coronal reformatted images were obtained on the technologist's workstation. Oral contrast: No This CT examination was performed using dose optimization techniques as appropriate, variously including the following: *Automated exposure control *Adjustment of mA and/or kV according to patient size (this includes techniques or standardized protocols for targeted exams where dose is matched to indication/reason for exam; i.e. extremities or head) *Use of iterative reconstruction technique DLP: 304 mGy-cm FINDINGS: Visualized lung bases demonstrate mild dependent atelectasis. The liver is mildly enlarged. Mild intrahepatic biliary ductal dilatation is again noted as is pneumobilia. The gallbladder is surgically absent. The pancreas is either severely atrophic or surgically absent. The spleen and adrenal glands are unremarkable. Symmetrically enhancing kidneys. There is no hydronephrosis of either kidney. Postsurgical changes of the stomach consistent with gastric bypass. Normal caliber loops of small bowel. There is a large stool burden throughout the majority of the colon. Normal caliber abdominal aorta demonstrating mild atherosclerotic disease. No retroperitoneal lymphadenopathy. The bladder is normally distended but demonstrates mild diffuse bladder wall thickening. Unremarkable CT appearance of the uterus. No gross free pelvic fluid. No inguinal lymphadenopathy. Diffuse osteopenia. Moderate degenerative changes of the spine. L4 compression deformity again noted. CT/CT abdomen pelvis w IV con IMPRESSION: 1. Large stool burden throughout the colon suggesting constipation. 2. Mild diffuse bladder wall thickening, nonspecific. Fleischner guidelines were followed. Electronically signed by: James Schuler MD 03/30/2024 10:00 AM [facility]
[2024-03-30 07:37] VITALS: BP 145/87; PULSE 69; RESP 18; TEMP 36.4; O2SAT 100; BMI 24.8
--- NOTE | 2024-03-30 08:03 | ED_ITS ---
HPI - Abdominal Pain General Chief Complaint: Abdominal Pain Stated Complaint: shape pain in abd Time Seen by Provider: 03/30/24 07:44 Source: patient and family Mode of arrival: ambulatory Limitations: no limitations History of Present Illness ED Provider: Izabella Dillard APRN HPI narrative: 68 yo female who has a history of pancreatic cancer who is status post Whipple procedure on June [address] Ramírez at [facility]. She complete a chemotherapy August of 2023 and is currently followed at [facility] for oncology ([facility]). She reports upper abdominal pain with waking worsened with movement, deep breathing and bending over. No associated vomiting, diarrhea, constipation, fevers, chills. She has an abdominal surgical history of gastric bypass, cholecystectomy, c/section and whipple. Related Data Home Medications ?Medication ?Instructions ?Recorded ?Confirmed acetaminophen 650 mg 650 mg PO Q12H 03/11/20 11/14/22 tablet,extended release (Tylenol Arthritis Pain) calcium carbonate 600 mg PO BID 03/11/20 11/14/22 glucosamine sulfate 500 mg tablet 500 mg PO BID 03/11/20 11/14/22 (Glucosamine) omega-3 fatty acids 1,000 mg 1,000 mg PO DAILY 03/11/20 11/14/22 capsule melatonin 10 mg capsule 10 mg PO BEDTIME PRN Insomnia 04/27/20 11/14/22 ascorbate calcium (vitamin C) 500 500 mg PO DAILY 07/23/21 11/14/22 mg tablet multivitamin (Daily Multi-Vitamin 1 tab PO DAILY 07/23/21 11/14/22 tablet) magnesium 200 mg tablet 200 mg PO DAILY 07/29/22 11/14/22 amlodipine 2.5 mg tablet 2.5 mg PO DAILY 08/16/23 [id number] 2 cap PO TID 08/16/23 24,000-76,000-120,000 unit capsule,delayed rel (Creon) omeprazole 20 mg capsule,delayed 20 mg PO DAILY 11/15/23 release Previous Rx's ?Medication ?Instructions ?Recorded blood-glucose sensor ([email or web address].com G7 #3 ea 08/16/23 Sensor device) pen needle, diabetic 32 gauge x #100 ea 08/16/23 5/16 (Comfort EZ Pen [place]) blood sugar diagnostic (GarpunTouch #100 ea 05/05/24 Verio test strips) blood-glucose meter (OneTouch #1 ea 09/10/23 Verio Flex Meter) lancets 33 gauge (OneTouch Delica #100 ea 09/10/23 Plus Lancet) acarbose 25 mg tablet 50 mg (2 x 25 mg) PO TID #180 tabs 11/16/23 Allergies Allergy/AdvReac Type Severity Reaction Status Date / Time ibuprofen [IBUPROFEN] Allergy Intermediate ANKLE/FOOT Verified 03/30/24 07:41 SWELLING minocycline Allergy Unknown Hives Verified 03/30/24 07:41 Review of Systems Review of Systems Yes all other systems are reviewed and are negative Constitutional: Reports no additional constitutional complaints, Denies body ache(s), Denies chills, Denies fever(s), Denies headache(s) and Denies weakness Eyes: Reports no additional eye complaints and Denies change in vision Reports system reviewed and no additional complaints, except as documented, Denies dizziness, Denies headache(s), Denies nasal congestion, Denies nasal discharge and Denies neck pain Cardiovascular: Reports no additional cardiovascular complaints, Denies chest pain, Denies leg edema and Denies dyspnea Respiratory: Reports no additional respiratory complaints, Denies cough and Denies dyspnea Gastrointestinal: Reports no additional gastrointestinal complaints, Reports abdominal pain, Denies melena, Denies hematochezia, Denies constipation, Denies diarrhea, Denies nausea, Denies vomiting and Denies hematemesis Genitourinary: Reports no additional female genitourinary complaints and Denies urinary incontinence Musculoskeletal: Reports no additional musculoskeletal complaints, Denies back pain, Denies arthralgias, Denies joint swelling, Denies neck pain, Denies numbness and Denies tingling Skin/Breast: Reports system reviewed and no additional complaints, except as docu and Denies rash Reports system reviewed and no additional complaints, except as documented, Denies Abnormal speech present, Denies dizziness, Denies headache(s), Denies numbness, Denies tingling and Denies weakness PMFSH Past Medical History Attestation statement: The following information was validated with the patient. Source: old records reviewed and nursing notes reviewed Medical History Hypoglycemia Vitamin D deficiency History of diabetes mellitus Surgical History History of Whipple procedure History of bariatric surgery Hx of repair of right rotator cuff Hx of colonoscopy with polypectomy Hx of tubal ligation Hx of cholecystectomy Hx of section Hx of tonsillectomy Family History Family History Father No problems noted. Mother No problems noted. Social History Social History Household Members: Significant Other Housing: House Do you presently have visiting nurse or other home services: No Alcohol intake: current Alcohol intake frequency: holidays/special occasions only Alcohol type: wine Patient Tobacco Use Status: Never used Tobacco Smoked in Last 30 Days: No Use of substances other than those prescribed or required for medical reasons: No Advance Directives: No Advance Directives Information Provided: No Do you have a plan to hurt others: No Plan service: No Current occupational status: retired Physical Exam ED Vital Signs: Vital Signs - 24 hr 03/30/24 07:37 03/30/24 08:41 Temperature 97.6 F Pulse Rate 69 68 Respiratory Rate 18 16 Blood Pressure 145/87 H 148/83 H Pulse Oximetry 100 99 Oxygen Delivery Method Room Air Room Air BMI result Body Mass Index 24.8 Const General: cooperative, healthy appearing, comfortable and no acute distress Orientation/consciousness: patient oriented x3 Limitations: no limitations HENMT Head: Yes normal to inspection Ears: hearing grossly normal bilaterally General nose exam: Normal external nose present Face and sinus: Yes normal facial exam Mouth: Normal oral and palatal mucosa present Throat: Yes posterior oropharynx normal Eyes General: appearance normal, both eyes and all related structures Pupils: Equal, round and reactive pupils present Neck Neck: Yes normal visual inspection Chest Chest palpation & inspection: normal inspection of the chest Resp Effort & Inspection: normal respiratory effort Auscultation: clear to auscultation bilaterally Cardio Rate: regular rate Rhythm: regular rhythm Peripheral pulses: Peripheral pulses 2+ throughout GI Inspection: Yes normal to inspection and No distended Palpation (GI): Soft to palpation, Tenderness to palpation present (GI) in the RUQ; with no rebound tenderness and no guarding Auscultation: normal bowel sounds Back/Spine/Pelvis Thoracic/Lumbar Spine: thoracic and lumbar spine normal to inspection Skin General skin exam: no rashes or lesions noted Neuro General: patient oriented x3, no focal motor deficits and normal sensation to monofilament Cranial nerves: Yes Equal, round and reactive pupils present Cognition (Neuro): normal cognition Speech: No Abnormal speech present Gait exam (Neuro): Normal gait present Motor exam (neuro): 5/5 motor strength present throughout Extrem General: Yes normal to inspection Course Course Course Narrative: CT shows Large stool burden. Otherwise unremarkable. Labs show mild the elevated liver enzymes. Previous labs are available from November 2022 which showed elevated LFTs. No recent to compare to. I reviewed the CT findings and lab report with the patient. I recommend that she avoid alcohol, Tylenol products and follow up with her primary care doctor for repeat liver enzymes. As far as the large stool burden I recommend that she increase her daily MiraLax to twice daily, continue fluid and fiber in her diet. Reviewed worrisome signs and symptoms of when to return to the emergency room. Comfortable plan for discharge home Medical Decision Making Medical Decision Making [facility] Narrative: 68-year-old female with history of pancreatic cancer status post Whipple and chemotherapy currently in remission presents the ER with reports of epigastric and right upper quadrant pain with waking this morning. On exam patient has tenderness with no rebound or guarding to the right upper quadrant and epigastrium. She has normal bowel sounds. Her abdomen is soft nondistended. Will need labs, UA, CT imaging Differential Diagnosis Differential Diagnoses: The differential diagnosis associated with the presentation includes Pancreatic neoplasm, pancreatitis, gastritis, GERD Low suspicion for SBO, acute appendicitis Admission/Observation Consideration of admission/observation: Escalation of care including admission/observation considered See course of care Lab Data [facility] Lab Attestation statement: I reviewed the patient's lab results. 03/30/24 08:29 03/30/24 08:29 Labs: Lab Results 03/30/24 03/30/24 Range/Units 08:29 08:42 WBC 5.1 (4.8-10.8) X10*3/uL RBC 3.45 L (4.20-5.50) X10*6/uL Hgb 10.6 L (12.0-16.0) g/dl Hct 32.4 L (37.0-47.0) % MCV 93.9 (80.0-98.0) fL MCH 30.7 (27.0-33.0) pg MCHC 32.7 (31.0-35.0) g/dl RDW 14.6 (11.0-16.0) % Plt Count 225 (160-400) X10*3/uL MPV 8.8 L (9.4-12.3) fL Immature Gran % (Auto) 0.2 (0.0-0.4) % Neut % (Auto) 44.6 L (45-73) % Lymph % (Auto) 39.9 (20-40) % [place] % (Auto) 11.2 H (2-11) % Eos % (Auto) 3.5 (0-4) % Baso % (Auto) 0.6 (0-2) % Lymph # (Auto) 2.0 (1.2-4.9) X10*3/uL [place]on # (Auto) 0.6 (0.1-1.2) X10*3/uL Eos # (Auto) 0.2 (0.0-0.4) X10*3/uL Baso # (Auto) 0.0 (0.0-0.2) X10*3/uL Abs Immat Gran (auto) 0.01 (0.00-0.03) X10*3/uL Absolute Neuts (auto) 2.3 (2.0-8.3) x10*3/uL Absolute Nucleated RBC 0.000 (0.0-0.012) X10*3/uL Nucleated RBC % (auto) 0.0 (0.0-0.2) /100WBC Sodium 138 (135-145) mmol/L Potassium 3.9 (3.3-5.1) mmol/L Chloride 103 (96-108) mmol/L Carbon Dioxide 27 (22-29) mmol/L Anion Gap 12 (12-20) BUN 19 H (9-16) mg/dL Creatinine 0.78 (0.5-1.4) mg/dL Estim Creat Clear Calc 42.8 Estimated GFR > 60 Random Glucose 109 (60-115) mg/dL Calcium 9.0 (8.4-10.2) mg/dL Total Bilirubin 0.3 (0.0-1.0) mg/dL Direct Bilirubin 0.2 (0.0-0.5) mg/dL AST 63 H (5-31) U/L ALT 52 H (0-31) U/L Alkaline Phosphatase 428 H (39-117) U/L Total Protein 6.3 L (6.5-8.0) g/dL Albumin 3.6 (3.5-5.0) g/dL Lipase < 4 L (8-78) U/L Urine Color Yellow Urine Appearance Clear Urine pH 5.5 (5.0-9.0) Ur Specific [place] 1.015 (1.005-1.025) Urine Protein Negative (Neg-Trace) mg/dL Urine Glucose (UA) Negative (Negative) mg/dL Urine Ketones Negative (Negative) mg/dL Urine Blood Negative (Negative) Urine Nitrite Negative (Negative) Ur Leukocyte Esterase Negative (Negative) Urine Test NEGATIVE (NEGATIVE) Independent Interpretation I performed an independent interpretation of an: CT Scan Interpretation: I independently viewed the CT scan agree with the radiology report Radiology Impression Discussion of test interpretation with radiology: I have reviewed the radiologist's reading. Radiologist Impression: [place] [id number] CT Scan Report Signed Patient: Kavitha Montes MR#: [id number] : 1955 Acct:[id number] Age/Sex: 68 / F ADM Date: 03/30/24 Loc: .ED Attending Dr: Ordering Physician: Izabella Dillard NP Date of Service: 03/30/24 Procedure(s): CT abdomen pelvis w IV con Accession Number(s): [id number] cc: Destiny Hurtado; Izabella Dillard NP~ EXAMINATION: CT ABDOMEN AND PELVIS WITH CONTRAST CLINICAL INFORMATION: Epigastric/right upper quadrant pain. History of pancreatic neoplasm. COMPARISON: Abdominal MRI and CT abdomen and pelvis November 14, 2022 TECHNIQUE: Multidetector volumetric images were obtained from the superior aspect of the liver through the pubic symphysis following administration 85 mL of Omnipaque 350 intravenous contrast. Sagittal and coronal reformatted images were obtained on the technologist's workstation. Oral contrast: No This CT examination was performed using dose optimization techniques as appropriate, variously including the following: *Automated exposure control *Adjustment of mA and/or kV according to patient size (this includes techniques or standardized protocols for targeted exams where dose is matched to indication/reason for exam; i.e. extremities or head) *Use of iterative reconstruction technique DLP: 304 mGy-cm FINDINGS: Visualized lung bases demonstrate mild dependent atelectasis. The liver is mildly enlarged. Mild intrahepatic biliary ductal dilatation is again noted as is pneumobilia. The gallbladder is surgically absent. The pancreas is either severely atrophic or surgically absent. The spleen and adrenal glands are unremarkable. Symmetrically enhancing kidneys. There is no hydronephrosis of either kidney. Postsurgical changes of the stomach consistent with gastric bypass. Normal caliber loops of small bowel. There is a large stool burden throughout the majority of the colon. Normal caliber abdominal aorta demonstrating mild atherosclerotic disease. No retroperitoneal lymphadenopathy. The bladder is normally distended but demonstrates mild diffuse bladder wall thickening. Unremarkable CT appearance of the uterus. No gross free pelvic fluid. No inguinal lymphadenopathy. Diffuse osteopenia. Moderate degenerative changes of the spine. L4 compression deformity again noted. CT/CT abdomen pelvis w IV con IMPRESSION: 1. Large stool burden throughout the colon suggesting constipation. 2. Mild diffuse bladder wall thickening, nonspecific. Fleischner guidelines were followed. Electronically signed by: Jmaes Schuler MD 03/30/2024 10:00 AM [facility] Independent Historian Clinical information obtained from an independent historian. History obtained from or confirmed by: Spouse External Record Review External record reviewed: Inpatient record, Prior outpatient radiology and Outside ED record Prescription Management I considered prescription management with: Pain Medication Chronic Conditions Patient?s care impacted by: Cancer Medications Administered Discontinued Medications Generic Name Dose Route Start Last Admin Trade Name Perry PRN Reason Stop Dose Admin Iohexol 100 ml 03/30/24 09:43 03/30/24 09:45 Iohexol 350 Mg/Ml 100 Ml Infus..Btl IV 03/30/24 09:44 85 ml ONCE ONE Administration Lidocaine HCl 1 appl 03/30/24 07:45 03/30/24 08:05 Lidocaine 4 % Cream Kit TOPICAL 03/30/24 07:46 1 appl ONCE ONE Administration Protocol Discharge Plan Discharge Clinical Impression: Constipation, Abdominal pain Patient Disposition: Home, Self-Care Instructions: Constipation (ED), Abdominal Pain (ED) Additional Instructions: Your CT scan does show a large stool burden. Please increase your MiraLax to twice daily. Continue a high-fiber diet and fluids Your liver enzymes are elevated. They have been elevated in the past however the most recent labs that we have on you to compare these to or from November of 2022. Please discuss this with your primary care doctor. Avoid alcohol and Tylenol use until that Your AST is 63 (elevated) ALT 52 (elevated) Alk Phosphatase 428 (elevated) Total bilirubin 0.3 (normal) direct bilirubin 0.2 (normal) Prescriptions: No Action (DME) OneTouch Verio test strips Strip See Rx Instructions .Route Qty: 100 5RF Rx Instructions: As directed tests 4 X/day (DME) blood-glucose meter [OneTouch Verio Flex meter] Misc See Rx Instructions .Route Qty: 1 0RF Rx Instructions: As directed tests 4 X/day (DME) lancets [OneTouch Delica Plus Lancet] 33 gauge misc See Rx Instructions .Route Qty: 100 4RF Rx Instructions: As directed tests 4X/day acarbose 25 mg tablet 50 mg PO TID Qty: 180 11RF multivitamin [Daily Multi-Vitamin] Tablet 1 tab PO DAILY ascorbate calcium (vitamin C) 500 mg tablet 500 mg PO DAILY magnesium 200 mg tablet 200 mg PO DAILY melatonin 10 mg capsule 10 mg PO BEDTIME PRN (Reason: Insomnia) acetaminophen [Tylenol Arthritis Pain] 650 mg tablet extended release 650 mg PO Q12H omega-3 fatty acids 1,000 mg capsule 1,000 mg PO DAILY glucosamine sulfate [Glucosamine] 500 mg tablet 500 mg PO BID Rx Instructions: administer with meals calcium carbonate 600 mg calcium (1,500 mg) tablet 600 mg PO BID omeprazole 20 mg capsule,delayed release(DR/EC) 20 mg PO DAILY Creon 24,000-76,000 -120,000 unit capsule,delayed release(DR/EC) 2 cap PO TID Rx Instructions: administer with meals and/or snacks amlodipine 2.5 mg tablet 2.5 mg PO DAILY (DME) pen needle, diabetic [Comfort EZ Pen [place]] 32 gauge x 5/16 needle See Rx Instructions .Route Qty: 100 3RF Rx Instructions: As directed (DME) Dexcom G7 Sensor Device See Rx Instructions .Route Qty: 3 4RF Rx Instructions: As directed change every 10 days Referrals: Destiny Hurtado PA [Primary Care Provider] - 1 week Print Language: Greenlandic
[2024-03-30] MEDS: Lidocaine 4 % Cream KIT 1 APPL TOPICAL (08:05)
[2024-03-30 08:33] LABS: MANUAL DIFF FLAG NO
[2024-03-30 08:34] LABS: Basophils Percent Auto 0.6 % (0-2); Eosinophils Absolute Auto 0.2 X10*3/uL (0.0-0.4); Eosinophils Percent Auto 3.5 % (0-4); Hematocrit 32.4 % (37.0-47.0); Hemoglobin 10.6 g/dl (12.0-16.0); Imm Gran Abs Auto 0.01 X10*3/uL (0.00-0.03); Imm Gran Pct Auto 0.2 % (0.0-0.4); Lymphocytes Percent Auto 39.9 % (20-40); Mean Corpuscular HGB Conc 32.7 g/dl (31.0-35.0); Mean Corpuscular Hemoglobin 30.7 pg (27.0-33.0); Mean Corpuscular Volume 93.9 fL (80.0-98.0); Mean Platelet Volume 8.8 fL (9.4-12.3); Monocytes Absolute Auto 0.6 X10*3/uL (0.1-1.2); Monocytes Percent Auto 11.2 % (2-11); Neutrophils Absolute Auto 2.3 x10*3/uL (2.0-8.3); Neutrophils Percent Auto 44.6 % (45-73); Platelet Count 225 X10*3/uL (160-400); Red Blood Count 3.45 X10*6/uL (4.20-5.50); Red Cell Distribution Width 14.6 % (11.0-16.0); White Blood Count 5.1 X10*3/uL (4.8-10.8)
[2024-03-30 08:41] VITALS: BP 148/83; PULSE 68; RESP 16; O2SAT 99
[2024-03-30 08:49] LABS: Appearance Urine Clear; Color Urine Yellow; Glucose Urine UA Negative (Negative); Leukocyte Esterase Urine Negative (Negative); Nitrite Urine Negative (Negative); PH 5.5 (5.0-9.0); Specific Gravity - Urine 1.015 (1.005-1.025); Urine Blood Negative (Negative); Urine Ketones Negative (Negative); Urine Protein Negative (Neg-Trace)
[2024-03-30 08:54] LABS: UPreg QC Valid YES; Urine Pregnancy NEGATIVE (NEGATIVE)
[2024-03-30 09:03] LABS: Alanine Aminotransferase 52 U/L (0-31); Albumin Level 3.6 g/dL (3.5-5.0); Alkaline Phosphatase 428 U/L (39-117); Anion Gap 12 (12-20); Aspartate Amino Transferase 63 U/L (5-31); Bilirubin Direct 0.2 mg/dL (0.0-0.5); Bilirubin Total 0.3 mg/dL (0.0-1.0); Blood Urea Nitrogen 19 mg/dL (9-16); Carbon Dioxide 27 mmol/L (22-29); Chloride 103 mmol/L (96-108); Creatinine Clr Calc Pharmacy 42.8; Estimated Glomerular Filt Rate > 60; Glucose Random 109 mg/dL (60-115); Lipase < 4 U/L (8-78); Potassium 3.9 mmol/L (3.3-5.1); Sodium 138 mmol/L (135-145); Total Protein 6.3 g/dL (6.5-8.0)
[2024-03-30] MEDS: iohexoL 350 MG/ML 100 ML INFUS..BTL IV (09:45)
[2024-03-30 11:30] VITALS: BP 136/83; PULSE 68; RESP 16; TEMP 36.4; O2SAT 99
== END 2024-03-30 11:31 | disposition home or self-care (01) ==
PROVIDERS: Emergency Provider Emergency Medicine; PCP Physician Assistant
DX: K59.00 Constipation, unspecified (principal); R10.11 Right upper quadrant pain; E13.9 Other specified diabetes mellitus without complications; Z85.07 Personal history of malignant neoplasm of pancreas; Z90.49 Acquired absence of other specified parts of digestive tract; Z98.84 Bariatric surgery status
CPT/HCPCS: 36415; 74177; 80053; 81003; 81025; 82248; 83690; 85025; 99284; J1642; Q9967

== ENCOUNTER 2024-05-29 21:59 | Emergency (ER) | payer MEDICARE, BC, SELFPAY ==
--- NOTE | ~2024-05-29 | XR_ITS ---
CLINICAL HISTORY: left upper chest pleuritic pain Chest two views Comparison: No prior chest imaging. Findings: Right IJ infusion catheter with tip over the SVC. Atelectatic appearing lower lung changes. No lobar consolidation. No venous distention or edema. No pneumothorax. No appreciable pleural effusion. Normal heart size. Mediastinal contour intact with trachea midline. Surgical changes right shoulder. Linear density left paramidline abdomen suggesting a catheter, and correlation for PEG tube versus other. Nonobstructive bowel gas pattern. Impression: Atelectatic lower lung changes. Otherwise no acute appearing cardiopulmonary process. See discussion. This document has been electronically signed by: Ricardo Rivera MD on 05/30/2024 06:16:36
[2024-05-29 22:06] VITALS: BP 105/73; BP 151/85; PULSE 80; PULSE 98; RESP 18; TEMP 36.9; O2SAT 97; O2SAT 98; BMI 24.4
--- NOTE | 2024-05-30 01:27 | ED.GENADULT ---
HPI - General Adult General Chief complaint: Back Pain/Injury Stated complaint: Back pain x4 hours Time Seen by Provider: 05/30/24 01:27 History of Present Illness ED Provider: Jae CASTILLO narrative: The patient is a 68-year-old woman who is here because your left upper back near the shoulder. She says that 2 days ago on Monday she was reaching for something out of a drawer when she had some slight pain in the left upper back near the shoulder but it was not very serious. The pain did not persist and she was able to do her normal activities on the following days including going to an exercise dance class this morning. However this evening at around 6PM she was doing nothing in particular, sitting in a chair, when she felt the pain get much much worse. She says the pain felt like a spasm in the muscles in the region of her left scapula. The pain was worse when she moves or if she moves her left arm. She did not feel short of breath. There is no lower back pain. No fever, sweats, chills. She was so uncomfortable that she called an ambulance. She had tried a lidocaine patch had placed over her left scapula without benefit. She says that she tried to take some Tylenol but that the act of leaning back to swallow pills aggravated the pain too much and so she did not feel she could take any pills.. The patient has a history of pancreatic cancer. She had a Whipple's procedure 1 year ago. She seems to be doing well. No pain or swelling in her legs. Related Data Home Medications ?Medication ?Instructions ?Recorded ?Confirmed acetaminophen 650 mg 650 mg PO Q12H 03/11/20 11/14/22 tablet,extended release (Tylenol Arthritis Pain) calcium carbonate 600 mg PO BID 03/11/20 11/14/22 glucosamine sulfate 500 mg tablet 500 mg PO BID 03/11/20 11/14/22 (Glucosamine) omega-3 fatty acids 1,000 mg 1,000 mg PO DAILY 03/11/20 11/14/22 capsule melatonin 10 mg capsule 10 mg PO BEDTIME PRN Insomnia 04/27/20 11/14/22 ascorbate calcium (vitamin C) 500 500 mg PO DAILY 07/23/21 11/14/22 mg tablet multivitamin (Daily Multi-Vitamin 1 tab PO DAILY 07/23/21 11/14/22 tablet) magnesium 200 mg tablet 200 mg PO DAILY 07/29/22 11/14/22 amlodipine 2.5 mg tablet 2.5 mg PO DAILY 08/16/23 ewhnkz-pcforqul-yuueced 2 cap PO TID 08/16/23 24,000-76,000-120,000 unit capsule,delayed rel (Creon) omeprazole 20 mg capsule,delayed 20 mg PO DAILY 11/15/23 release Previous Rx's ?Medication ?Instructions ?Recorded blood-glucose sensor (LeisureLink G7 #3 ea 08/16/23 Sensor device) pen needle, diabetic 32 gauge x #100 ea 08/16/2309/20 (Comfort EZ Pen [place]) blood sugar diagnostic (Elevate HRTouch #100 ea 09/10/23 Verio test strips) blood-glucose meter (Elevate HRTouch #1 ea 09/10/23 Verio Flex Meter) lancets 33 gauge (OneTouch Delica #100 ea 09/10/23 Plus Lancet) acarbose 25 mg tablet 50 mg (2 x 25 mg) PO TID #180 tabs 11/16/23 cyclobenzaprine 5 mg tablet 5 mg PO TID PRN muscle spasm #14 05/30/24 tabs Allergies Allergy/AdvReac Type Severity Reaction Status Date / Time ibuprofen [IBUPROFEN] Allergy Intermediate ANKLE/FOOT Verified 05/29/24 22:11 SWELLING minocycline Allergy Unknown Hives Verified 05/29/24 22:11 Review of Systems Review of Systems: Yes all other systems are reviewed and are negative PMF Past Medical History Medical History Hypoglycemia Vitamin D deficiency History of diabetes mellitus Surgical History History of Whipple procedure History of bariatric surgery Hx of repair of right rotator cuff Hx of colonoscopy with polypectomy Hx of tubal ligation Hx of cholecystectomy Hx of section Hx of tonsillectomy Family History Family History Father No problems noted. Mother No problems noted. Social History Social History Household Members: Significant Other Housing: House Do you presently have visiting nurse or other home services: No Alcohol intake: current Alcohol intake frequency: holidays/special occasions only Alcohol type: wine Patient Tobacco Use Status: Never used Tobacco Advance Directives: No Advance Directives Information Provided: Yes Do you have a plan to hurt others: No Plan service: No Current occupational status: retired Physical Exam ED Vital Signs: Vital Signs - 24 hr 05/29/24 22:06 05/30/24 06:12 05/30/24 06:35 Temperature 98.5 F 98.1 F 98.1 F Pulse Rate 98 76 76 Respiratory Rate 18 18 18 Blood Pressure 151/85 H 111/63 111/63 Pulse Oximetry 97 96 96 Oxygen Delivery Method Room Air Room Air Room Air BMI result Body Mass Index 24.4 Const Other: The patient is a 68-year-old woman who is awake and alert. She did not appear in acute distress or discomfort at the time I interviewed her. HENMT Other: Face is symmetrical. Mucous membranes are moist. Eyes General: appearance normal, both eyes and all related structures Neck Neck: Yes normal visual inspection, Yes full ROM and Yes no lymphadenopathy Chest Other: There is tenderness in the left upper back ( the posterior chest) in the region of the left scapula. a lidocaine patch had been applied by the patient's at home and was still present at the time that I examined her. This was overlying the scapula. She seems to have a lot of periscapular tenderness with palpation around the scapula and the scapular muscles. Anteriorly a Port-A-Cath device is clearly present on the right upper chest. Resp Effort & Inspection: normal respiratory effort Auscultation: clear to auscultation bilaterally Cardio Rate: regular rate Rhythm: regular rhythm Heart sounds: S1 normal heart sound present and S2 normal heart sound present GI Other: Abdomen is soft nontender. Back/Spine/Pelvis Other: There is a lidocaine patch present over the skin of the left scapula. This had been applied at home. She has a lot of tenderness in the periscapular region on the left. Skin Other: The skin is dry and unremarkable. Neuro Other: The patient is awake and alert with normal mental status. Cranial nerves are intact. She has normal strength and sensation in her extremities. She has a steady gait. Extrem Other: The patient has a lot of tenderness with palpation around the left scapula. She felt that moving her left arm at that shoulder posteriorly exacerbated her pain. She has no calf swelling or tenderness or asymmetry or edema. Medications Administered Discontinued Medications Generic Name Dose Route Start Last Admin Trade Name Perry BOOTHE Reason Stop Dose Admin Acetaminophen 975 mg 05/30/24 04:21 05/30/24 04:50 Acetaminophen 325 Mg Tablet PO 05/30/24 04:22 975 mg ONCE ONE Administration Ketorolac Tromethamine 20 mg 05/30/24 01:41 05/30/24 02:28 Ketorolac Tromethamine 30 Mg/Ml Vial IM 05/30/24 01:42 20 mg ONCE ONE Administration Medical Decision Making Medical Decision Making MDM Narrative: Patient is a very pleasant 68-year-old who has a history of pancreatic cancer. She had a Whipple's procedure year ago. She seems to have done well from the point of view of that cancer as far as I can tell. She presents tonight with acute pain in the region of the left scapula that is worse with movement of her left arm. She had some milder pain that started 2 days ago on Monday when she reached for something with her left arm out of a drawer. Clinically her pain seems very muscular. I think a pulmonary embolism in this case is unlikely based on her physical exam and her description of the symptoms. She was given injection of ketorolac which seemed to help significantly. she reported a history of intolerance of ibuprofen because it causes foot swelling. She seemed to tolerate the ketorolac without any acute reactions. She will be advised to use acetaminophen as needed for pain and to continue lidocaine patches. I will prescribe cyclobenzaprine. She should follow up with her PCP. Discharge Plan Discharge Clinical Impression: Upper back pain on left side Patient Disposition: Home, Self-Care Additional Instructions: I believe that your pain is muscular pain. An x-ray of your chest which I believe covers the area of where you are experiencing your pain does not show any acute findings. You seemed to get a significant amount of relief from a dose of ketorolac (Toradol). Please use acetaminophen (Tylenol) as needed for pain. I have also sent a prescription for a muscle relaxant called cyclobenzaprine to your pharmacy. I think continuing the Salonpas patches is reasonable. Please follow up with your regular doctor soon to discuss this pain further. Return to the emergency room if you feel significantly worse, especially if you feel short of breath. Prescriptions: New cyclobenzaprine 5 mg tablet 5 mg PO TID PRN (Reason: muscle spasm) Qty: 14 0RF No Action (DME) OneTouch Verio test strips Strip See Rx Instructions .Route Qty: 100 5RF Rx Instructions: As directed tests 4 X/day (DME) blood-glucose meter [OneTouch Verio Flex meter] [facility] See Rx Instructions .Route Qty: 1 0RF Rx Instructions: As directed tests 4 X/day (DME) lancets [OneTouch Delica Plus Lancet] 33 gauge misc See Rx Instructions .Route Qty: 100 4RF Rx Instructions: As directed tests 4X/day acarbose 25 mg tablet 50 mg PO TID Qty: 180 11RF multivitamin [Daily Multi-Vitamin] Tablet 1 tab PO DAILY ascorbate calcium (vitamin C) 500 mg tablet 500 mg PO DAILY magnesium 200 mg tablet 200 mg PO DAILY melatonin 10 mg capsule 10 mg PO BEDTIME PRN (Reason: Insomnia) acetaminophen [Tylenol Arthritis Pain] 650 mg tablet extended release 650 mg PO Q12H omega-3 fatty acids 1,000 mg capsule 1,000 mg PO DAILY glucosamine sulfate [Glucosamine] 500 mg tablet 500 mg PO BID Rx Instructions: administer with meals calcium carbonate 600 mg calcium (1,500 mg) tablet 600 mg PO BID omeprazole 20 mg capsule,delayed release(DR/EC) 20 mg PO DAILY Creon 24,000-76,000 -120,000 unit capsule,delayed release(DR/EC) 2 cap PO TID Rx Instructions: administer with meals and/or snacks amlodipine 2.5 mg tablet 2.5 mg PO DAILY (DME) pen needle, diabetic [Comfort EZ Pen [place]] 32 gauge x 5/16 needle See Rx Instructions .Route Qty: 100 3RF Rx Instructions: As directed (DME) Dexcom G7 Sensor Device See Rx Instructions .Route Qty: 3 4RF Rx Instructions: As directed change every 10 days Referrals: Destiny Hurtado PA [Physician [facility]] - (left upper back pain) Interventions: ED Discharge Assessment Last Done: 05/30/24 06:35 Discharge Date/Time: 05/30/24 06:38 Print Language: Wolof
[2024-05-30] MEDS: Ketorolac Tromethamine 30 MG/ML VIAL 20 MG IM (02:28)
--- NOTE | 2024-05-30 04:20 | PC.NURSE ---
assisted with ambulation, gait steady, reports improvement in symptoms. waiting for xray.
[2024-05-30] MEDS: Acetaminophen 325 MG TABLET 975 MG PO (04:50)
--- NOTE | 2024-05-30 05:52 | PC.NURSE ---
tolerated toradol well, no lower extremity edema noted. respirations non labored. no rash/hives. resting comfortably. awaiting to transport home.
[2024-05-30 06:12] VITALS: BP 111/63; PULSE 76; RESP 18; TEMP 36.7; O2SAT 96
[2024-05-30 06:35] VITALS: BP 111/63; PULSE 76; RESP 18; TEMP 36.7; O2SAT 96
== END 2024-05-30 06:38 | disposition home or self-care (01) ==
PROVIDERS: Emergency Provider Emergency Medicine
DX: M25.512 Pain in left shoulder (principal); M54.6 Pain in thoracic spine; E11.9 Type 2 diabetes mellitus without complications; Z79.899 Other long term (current) drug therapy; Z85.07 Personal history of malignant neoplasm of pancreas
CPT/HCPCS: 71046; 96372; 99284; J1885

== ENCOUNTER → 2024-05-30 04:21 | Outpatient (BNV) | payer MEDICARE, BC, SELFPAY | PROVIDERS: Emergency Provider Emergency Medicine; Visit Provider Radiology Diagnostic Radiology | DX: R09.1 Pleurisy (principal) | CPT/HCPCS: 71046 ==

== ENCOUNTER 2024-10-30 10:59 | Outpatient (AMB) | payer MEDICARE, BC, SELFPAY ==
[2024-10-30 11:08] VITALS: BMI 27.4
--- NOTE | 2024-10-30 11:08 | A.OFFVIS_ITS ---
VS Expanded 10/30/24 11:08 Height 4 ft 7 in Weight 117 lb 15.157 oz BMI 27.4 Intake Visit Reasons: T2DM Allergies ibuprofen (IBUPROFEN) Allergy (Intermediate, Verified 05/29/24 22:11) ANKLE/FOOT SWELLING minocycline Allergy (Unknown, Verified 05/29/24 22:11) Hives Nutrition Presentation Details: Pt presents for MNT f/u for T2DM Pt reports monitoring BG 1-2 x/month : FBG 142, 132 (monitoring 2 x/month) Reports discomfort d/t weight gain , 10 lb in 5 month typical meal 5: 30 coffee non sweetened cream norwegian vanila 8 am wrap: 1 eggs, thin slice of ham /cheese spinach may skip 6 pm coffee, roll and meatballs 1/2 c tapioca and sugar free jello with cool whip physical activity : [place] on Mond, Jazz, Wed, country aerobics on Frid (has signed up for 5 k on January) denies D/N/V Med Hx . takes creon 2 tabs before each meal Pt has hx of Angy en Y gastric bypass surgery 1990s BS Monitoring Most Recent Diabetes Results: Creatinine, (0.5-1.4) 0.78 mg/dL 03/30/24 BUN, (9-16) 19 mg/dL H 03/30/24 Sodium, (135-145) 138 mmol/L 03/30/24 Potassium, (3.3-5.1) 3.9 mmol/L 03/30/24 Chloride, (96-108) 103 mmol/L 03/30/24 Carbon Dioxide, (22-29) 27 mmol/L 03/30/24 Calcium, (8.4-10.2) 9.0 mg/dL 03/30/24 AST, (5-31) 63 U/L H 03/30/24 ALT, (0-31) 52 U/L H 03/30/24 Total Protein, (6.5-8.0) 6.3 g/dL L 03/30/24 Albumin, (3.5-5.0) 3.6 g/dL 03/30/24 [facility] Medical History Hypoglycemia Vitamin D deficiency History of diabetes mellitus Surgical History History of Whipple procedure History of bariatric surgery Hx of repair of right rotator cuff Hx of colonoscopy with polypectomy Hx of tubal ligation Hx of cholecystectomy Hx of section Hx of tonsillectomy Family History Father No problems noted. Mother No problems noted. Social History Household Members: Significant Other Housing: House Do you presently have visiting nurse or other home services: No Alcohol intake: current Alcohol intake frequency: holidays/special occasions only Alcohol type: wine Patient Tobacco Use Status: Never used Tobacco service: No Current occupational status: retired Assessment & Plan Assessment & Plan (1) Other specified diabetes mellitus without complications: Comment: Acquired total absence of pancreas in 06/2023 Code(s): E13.9 - Other specified diabetes mellitus without complications Category: Medical Plan: Wt: 48 Kg ( 07/2023 ), 47 kg (09/2023), 03/2024, 54 kg /BMI 37 (10/30) Est kcal needs as per MSJ: 1200 (as per 48 kg) (40% carb, 30% protein/fat) Est fluid needs as per 25-30 ml/d: 1200 Est prot per day as per 1 g/kg bw: 48 Recommend fiber intake : 8-10 g per day and gradually increase to 25-28 g per day for women and 35-38 g for men or as tolerated Recommend sodium intake per day : less than 1500 mg - less than 2000 mg Educated patient on: ( R = reviewed V = verbalizes understanding N/R = needs review N/A = not applicable * Food sources of carbohydrate, adequate serving sizes and its role in various health conditions: R V * Differences between complex carbohydrates a simple carbohydrates, role of fiber in diet: R V * Lean protein sources of foods: R V * Differences between types of fats and role in diet (mono on saturated fat fatty acids, saturated fatty acids, trans fats): R basic low fat * Food sources of sodium in salt and healthy modifications for heart health in kidney health: R * Vitamins and minerals: R V * Healthy plate method concept: R * Physical activity: Benefits a precaution: R * Hypoglycemia protocol (rule of 15): R * Dietary prevention of Hyperglycemia: R, V * relationship of fat for vitamin /mineral absorption: R Patient Instructions: Work on having 3 small small meals , choosing complex carb appr 30 -45 g with approx 2 oz of protein per meal practice mindful eating see [id number] elian meal plan Coding Level of Care Code Nutr Indiv Subseq (70130) Diagnoses Other specified diabetes mellitus without complications E13.9 Time Spent (min) 30
--- OUTSIDE RECORDS SUMMARY | 2024-10-30 13:02 | XMS_ITS | Patient Health Record ---
[facility] Address [address] [place] [address] Care Team Providers Care Loan Counselor Name Role Phone Destiny Hurtado Primary Care Provider Enrrique Sutton Unavailable [phone] Allergies Allergen (clinical drug ingredient) Drug/Non Drug Allergy documented on EMR Reaction Allergy Type Onset Date Status Lactose stomach upset Drug Allergy Act oliver minocycline Minocin hives Drug Allergy Activ e ibuprofen Ibuprofen swelling feet and ankles Drug Allergy Active Results Component Value Reference Range Notes HEMOGLOBIN A1C (GLYCOHEMOGLO BIN) Reviewed date:08/09/2024 08:49:28 AM Interpretation: Performing Lab: Notes/Report: HEMOGLOBIN A1C % (HH) 6.4 HEMOGLOBIN A1C (GLYCOHEMOGLO BIN) Reviewed date:12/12/2023 03:17:25 PM Interpretation: Performing Lab: Notes/Report: HEMOGLOBIN A1C % (HH) 6.4 Reason For Referral No Information Medications Medication SIG (Take, Route, Frequency, Duration) Notes Start Date End Date Status Kerasal Ultra20 20-5 % as directed Exter carl bid for 30 days 04/25/2013 Not-Taking buPROPion HCl ER (SR) 150 MG 1 tablet Orally Twice a day Not-Taking metFORMIN HCl ER 500 MG 1 tablet with ev ening meal Orally Once a day for 30 day(s) Not-Taking Lisinopril 5 MG 1 tablet Orally Once a day Not-Taking Raloxifene HCl 60 MG 1 tablet Orally Onc e a day for 30 day(s) Not-Taking Atorvastatin Calcium 40 MG 1 tablet Orally Once a day for 30 day(s) Not-Taking Omeprazole 20 MG Oral for 30 A ctive Extra Depth Orthopedic Shoes (1 Pair) with Customized Heat Molded Multidensity Innersoles (3 Pair) as directed Dx: NIDDM (E11.9), Hammertoe Foot Deformity (M20.41,M20.42), Preulcerative Skin Lesion(s) (L85.1) 08/09/2024 Active Lovastatin 40 MG 1 tablet with the evening meal Orally Once a day for 30 day(s) Not-Taking vitamin Active Ammonium Lactate 12 % 1 application to affected area Externally to feet Twice a day for 30 days Active Creon Active Acarbose 50 MG as directed Orally T hree times a day Active amLODIPine Besylate Active Immunizations Vaccine Route Administration Date Status Comme nts COVID-19 Moderna Vaccine Unknown 01/15/2022 Administered 1st 07/31/20,08/30/20 03/02/21,08/13/21 Influenza Unknown 01/19/2017 Administered Influenza Unknown 01/04/2019 Administered Influenza Unknown 01/05/2022 Administered Social History Tobacco Use: Social History Observation Description Date Details (start date - stop date) Never Smoker NA - NA Tobacco use other than smoking: Question Answer Notes Are you an other tobacco user? No Tobacco Control (Standard) Question Answer Notes Tobacco use: Nonsmoker Additional Findings: Tobacco non-user Current no nsmoker AUDIT-C (Standard) Question Answer Notes Did you have a drink containing alcohol in the p ast year? No Points 0 Interpretation Negative Problems Problem Type SNOMED Code ICD Code Onset Dates Problem Status W/U Status Risk Notes Problem Acquired hammer toe of right foot (965840267831555 5) Other hammer toe(s) (acquired), right foot (M20.41) Active confirmed Problem Acquired hammer toe of left foot (461716744356769 3) Other hammer toe(s) (acquired), left foot (M20.42) Active confirmed Problem Plantar wart (02281392) Plantar wart (B07.0) Active confirmed Chronic Problem Type II diabetes mellitus without complication (885406713) Type 2 diabetes mellitus without complications (E11.9) Active confirmed Vital Signs Blood pressure diastolic 60 mm Hg 08/09/2024 Height 4ft 8in in 08/09/2024 Blood pressure systolic 120 mm Hg 08/09/2024 Weight 109 lbs 08/09/2024 BMI 24.43 kg/m2 08/09/2024 Procedures Procedure Date Ordered Date Performed Result Body Sit e 13032-Kzdx Destruction, 1-14 12/12/2023 N/A 75233-Ebmp Destruction, 1-14 04/12/2024 N/A 06278-Xrif Destruction, 1-14 08/09/2024 N/A Encounters Encounter Location Date Provider Diagnosis [address] [address] 12/12/2023 Enrrique Posada Plantar wart B07.0 ; Pain in right foot M79.671 ; Pain in left foot M79.672 and Type 2 diabetes mellitus without complications E11.[address] [address] 04/12/2024 Enrrique Posada Plantar wart B07.0 ; Pain in right foot M79.671 ; Pain in left foot M79.672 and Type 2 diabetes mellitus without complications E11.[address] [address] 08/09/2024 Enrrique Posada Plantar wart B07.0 ; Pain in right foot M79.671 ; Pain in left foot M79.672 ; Type 2 diabetes mellitus without complications E11.9 ; Other hammer toe(s) (acquired), right foot M20.41 and Other hammer toe(s) (acquired), left foot M20.[address] [address] 12/08/2023 Enrrique Posada Assessments Encounter Date Diagnosis (ICD Code) Assessment Notes Treatment Notes Treatment Clinical Notes Section Notes 12/12/2023 Pain in right foot (ICD-10 - M79.671) 12/12/2023 Plantar wart (ICD-10 - B07.0) Chronic 04/12/2024 Pain in right foot (ICD-10 - M79.671) 04/12/2024 Plantar wart (ICD-10 - B07.0) Chronic 08/09/2024 Pain in right foot (ICD-10 - M79.671) 08/09/2024 Plantar wart (ICD-10 - B07.0) Chronic 08/09/2024 Pain in left foot (ICD-10 - M79.672) 04/12/2024 Pain in left foot (ICD-10 - M79.672) 12/12/2023 Pain in left foot (ICD-10 - M79.672) 12/12/2023 Type 2 diabetes mellitus without complications (ICD-10 - E11.9) 08/09/2024 Type 2 diabetes mellitus without complications (ICD-10 - E11.9) 04/12/2024 Type 2 diabetes mellitus without complications (ICD-10 - E11.9) 08/09/2024 Other hammer toe(s) (acquired), right foot (ICD-10 - M20.41) Patient Educated with: DIABETIC FOOT CARE INSTRUCTIONS.p df (DIABETIC FOOT CARE INSTRUCTIONS.p df) 08/09/2024 Other hammer toe(s) (acquired), left foot (ICD-10 - M20.42) Plan Of Treatment Pending Test Test Name Order Date Hemoglobin A1c 02/10/2015 X ray : Foot, right 3V 05/10/2012 77400-Prut Destruction, 05-2107/25/2012 94931-Rqir Destruction, 05-2110/24/2012 25373-Nedq Destruction, 05-2101/24/2013 77090-Vxbr Destruction, 05-2104/25/2013 75457-Fwxm Destruction, 05-2107/11/2013 27299-Cfdq Destruction, 05-2111/04/2013 53668-Esjq Destruction, 05-2102/04/2014 63762-Thty Destruction, 05-2105/16/2014 11070-Wqsm Destruction, 05-2108/15/2014 63261-Lxqr Destruction, 05-2111/11/2014 16441-Zzzz Destruction, -02/10/2015 62191-Oqsv Destruction, 05-2102/10/2011 37468-Cxga Destruction, 05-2105/12/2011 83759-Yfva Destruction, 05-2108/11/2011 94528-Mxij Destruction, 05-2110/24/2011 06005-Ijdu Destruction, 05-2101/23/2012 67017-Wsse Destruction, 05-2104/23/2012 95560-Suip Destruction, 05-2105/22/2015 83477-Hwyy Destruction, 05-2109/04/2015 55392-Pjbx Destruction, 05-2101/20/2017 33015-Jopn Destruction, 05-2105/19/2017 76716-Wpto Destruction, 05-2108/18/2017 69026-Mjlz Destruction, 05-2112/15/2017 11049-Ikkt Destruction, 05-2104/17/2018 10158-Ubvx Destruction, 05-2108/14/2018 17032-Cvoy Destruction, 05-2112/11/2018 03164-Bjzp Destruction, 05-2104/09/2019 61985-Akxz Destruction, 05-2109/24/2019 47910-Sopc Destruction, 05-2101/28/2020 93298-Ymya Destruction, 05-2105/29/2020 04718-Haig Destruction, 05-2109/29/2020 09951-Aoui Destruction, 05-2101/19/2021 64464-Iguc Destruction, 05-2105/21/2021 01451-Qoaj Destruction, 05-2109/24/2021 68899-Ckge Destruction, 05-2101/28/2022 93637-Wbsm Destruction, 05-2106/03/2022 41076-Ymeh Destruction, 05-2109/23/2022 89499-Fggm Destruction, 05-2101/13/2023 88076-Rjyc Destruction, 05-2105/25/2023 35588-Hpwm Destruction, 05-2112/12/2023 34929-Hzka Destruction, 05-2104/12/2024 20642-Omrd Destruction, 05-2108/09/2024 Next Appt Details Provider Name:Enrrique Mathias Swetha , 12/10/2024 08:45:00 AM, [address] [facility], [place], [address], Insurance Providers Payer Name Payer Address Payer Phone Subscriber Number Group Number Insured Name Patient Relationship to Insured Coverage Start Date Coverage End Date Medicare National Govt [facility] [address] [place] [address] [id number] Kavitha Balderas Self - patient is the insured [facility] [address] [place] [address] [id number] Isaias Balderas Spouse - patient is the spouse of the insured Medical (General) History Medical History History ICD Code warts mumps anemia cholesterol HTN type II diabetes Pancreatic CA Surgical History Surgery Date(Month/Year) section 1985, 1988 cholecystectomy 2004 gastric bypass 2002 R rotator cuff 04/2018 radio frequency ablation 12/07/2018 L breast biopsy 2x 11/2021 Hospitalization History Reason Date(Month/Year[place] [facility] [place]18[place] [facility] [place] Suffered conscussion. 11/13/2017
== END 2024-10-30 11:33 | disposition home or self-care (01) ==
LOC: HO.ENCR 10:59
PROVIDERS: Visit Provider Dietitian, Registered
DX: E13.9 Other specified diabetes mellitus without complications (principal)

== ENCOUNTER → 2024-10-30 10:59 | Outpatient (BNVA) | payer MEDICARE, BC, SELFPAY | PROVIDERS: Visit Provider Dietitian, Registered | DX: E13.9 Other specified diabetes mellitus without complications (principal) | CPT/HCPCS: 97803 ==

== ENCOUNTER 2024-12-18 10:23 | Outpatient (AMB) | payer MEDICARE, BC, SELFPAY ==
--- NOTE | 2024-12-18 10:38 | A.OFFVIS_ITS ---
VS Expanded 12/18/24 10:40 Height 4 ft 7 in Weight 118 lb 6.212 oz BMI 27.5 Intake Visit Reasons: t2dm Allergies ibuprofen (IBUPROFEN) Allergy (Intermediate, Verified 05/29/24 22:11) ANKLE/FOOT SWELLING minocycline Allergy (Unknown, Verified 05/29/24 22:11) Hives Nutrition Presentation Details: Pt presents for MNT f/u for T1DM, weight gain Pt admits to stress eating r/t multiple deaths in fam/friends A1c at 7.1 (10/30) Reports keeping physically active : [place] 1 hr Monday, Madiha 1hr Mon, plus practicing for 5 k in Jan 10 BS Monitoring Most Recent Diabetes Results: Creatinine, (0.5-1.4) 0.78 mg/dL 03/30/24 BUN, (9-16) 19 mg/dL H 03/30/24 Sodium, (135-145) 138 mmol/L 03/30/24 Potassium, (3.3-5.1) 3.9 mmol/L 03/30/24 Chloride, (96-108) 103 mmol/L 03/30/24 Carbon Dioxide, (22-29) 27 mmol/L 03/30/24 Calcium, (8.4-10.2) 9.0 mg/dL 03/30/24 AST, (5-31) 63 U/L H 03/30/24 ALT, (0-31) 52 U/L H 03/30/24 Total Protein, (6.5-8.0) 6.3 g/dL L 03/30/24 Albumin, (3.5-5.0) 3.6 g/dL 03/30/24 [facility] Medical History Hypoglycemia Vitamin D deficiency History of diabetes mellitus Surgical History History of Whipple procedure History of bariatric surgery Hx of repair of right rotator cuff Hx of colonoscopy with polypectomy Hx of tubal ligation Hx of cholecystectomy Hx of section Hx of tonsillectomy Family History Father No problems noted. Mother No problems noted. Social History Household Members: Significant Other Housing: House Do you presently have visiting nurse or other home services: No Alcohol intake: current Alcohol intake frequency: holidays/special occasions only Alcohol type: wine Patient Tobacco Use Status: Never used Tobacco service: No Current occupational status: retired Assessment & Plan Assessment & Plan (1) Other specified diabetes mellitus without complications: Code(s): E13.9 - Other specified diabetes mellitus without complications Category: Medical Plan: Wt: 48 Kg ( 07/2023 ), 47 kg (09/2023), 03/2024, 54 kg /BMI 27 (10/30), 12/30 Est kcal needs as per MSJ: 1200 (as per 48 kg) (40% carb, 30% protein/fat) Est fluid needs as per 25-30 ml/d: 1200 Est prot per day as per 1 g/kg bw: 48 Recommend fiber intake : 8-10 g per day and gradually increase to 25-28 g per day for women and 35-38 g for men or as tolerated Recommend sodium intake per day : less than 1500 mg - less than 2000 mg Educated patient on: ( R = reviewed V = verbalizes understanding N/R = needs review N/A = not applicable * Food sources of carbohydrate, adequate serving sizes and its role in various health conditions: R V * Differences between complex carbohydrates a simple carbohydrates, role of fiber in diet: R V * Lean protein sources of foods: R V * Differences between types of fats and role in diet (mono on saturated fat fatty acids, saturated fatty acids, trans fats): R basic low fat * Food sources of sodium in salt and healthy modifications for heart health in kidney health: R * Vitamins and minerals: R V * Healthy plate method concept: R * Physical activity: Benefits a precaution: R * Hypoglycemia protocol (rule of 15): R * Dietary prevention of Hyperglycemia: R, V * relationship of fat for vitamin /mineral absorption: R Patient Instructions: Resume working on meal planning 1200 calories per day following healthy plate method Choose fruits as your snack Keep hydrated by choosing water/fruit/herb infused flavored water Coding Level of Care Code Nutr Indiv Subseq (05331) Diagnoses Other specified diabetes mellitus without complications E13.9 Time Spent (min) 30
[2024-12-18 10:40] VITALS: BMI 27.5
--- OUTSIDE RECORDS SUMMARY | 2024-12-18 11:08 | XMS_ITS | Encounter Summary ---
Author Organization [facility] Address [address] [place] [address] Phone Care Team Providers Care [employer] Law Clerk Name Role Phone Mar Gomez NP Primary Care Provider [phone] Augustine Jackson MD Unavailable Destiny Hurtado Primary Care Provider [phone] Encounter Details Date Type Department Care Team (Late st Contact Info) Description 01/26/2023 Procedure Pass [facility] [place], [place] [address] [address] Social History Tobacco Use Types Packs/Day Years Used Date Smoking Tobacco: Never Smokeless Tobacco: Never Alcohol Use Standard Drinks/Week Comments Yes 0 (1 standard drink = 0.6 oz pure alcohol) 1/2 glass of wine about once a month. Child or Family Care Answer Date Record ed Do you have problems with on e of the following making it difficult for you to work, study, or receive health care? No 01/20/2023 Education Answer Date Recorded Are you interested in more education? Not on yang e 01/20/2023 Are you concerned about learning? Not on file 01/20/2023 No 01/20/2023 No 01/20/2023 Food Answer Date Recorded Within the past 6 months we worried whether our food would run out before we got money to buy more. Never True 01/20/2023 Within the past 6 months the food we bought just didn't last and we didn't have enough money to get more. Never True Residential Stability Answer Date Recor ded What is your housing situation today? I have hilaria sing 01/20/2023 How many times have you move d in the past 12 months? Zero (I did not move) 01/20/2023 Paying for Meds Answer Date Recorded Do you have trouble paying for medicines? No 01/20/2023 Paying Utility Bills Answer Date Record ed Do you have trouble paying your heating or elect ricity bill? No 01/20/2023 Transportation Answer Date Recorded Has the lack of transportati on kept you from medical appointments or from getting medications? No 01/20/2023 Digital Access Answer Date Recorded No 01/20/2023 No 01/20/2023 Reliable internet access at home? Not on file 01/20/2023 Device with a working camera? Not on file Comments Unknown Sex and Gender Information Value Date Recorded Sex Assigned at Female 01/19/2023 12:30 PM EDT Legal Sex Female 12:28 PM EDT Gender Identity Female 01/19/2023 12:30 PM EDT Sexual Orientation Straight 01/19/2023 12 :30 PM EDT documented as of this encounter Plan of Treatment Not on file documented as of this encounter Visit Diagnoses Not on filedocumented in this encounter Additional Health Concerns Infection Onset Date Last Indicated Resolved Time CoV-Risk Comment:Per note documentation 07/08/2023 07/08/2023 11:42 PM EST documented as of this encounter Care Teams [employer] [place] Law Clerk Relationship Specialty [place] [address] [place] [address] PCP - General Nurse Practitioner 01/19/23 05/14/23 Destiny Hurtado PA [address] [facility] [address] [place] [address] PCP - General Physician Bistro Server 05/15/23 Augustine Jackson MD [address] [place] [id number] [email or web address] 01/19/23 documented as of this encounter Additional Source Comments The information contained in this document represents components of the legal health record. It is not the complete legal health record.[facility]
--- OUTSIDE RECORDS SUMMARY | 2024-12-18 11:09 | XMS_ITS | Patient Health Record ---
[facility] Address [address] [place] [address] Care Team Providers Care Filter Screen Cleaner Name Role Phone Destiny Hurtado Primary Care Provider Enrrique Sutton Unavailable [phone] Allergies Allergen (clinical drug ingredient) Drug/Non Drug [...] (HH) 6.4 HEMOGLOBIN A1C (GLYCOHEMOGLO BIN) Reviewed date:12/10/2024 08:44:12 AM Interpretation: Performing Lab: Notes/Report: HEMOGLOBIN A1C % (HH) 7.1 Reason For Referral No Information Medications Medication SIG (Take, Route, Frequency, Duration) Notes Start Date End Date Status Creon Active Kerasal Ultra20 20-5 % as directed Exter carl bid; Duration: 30 days 04/25/2013 Not-Takin g Acarbose 50 MG as directed Orally T hree times a day Active Raloxifene HCl 60 MG 1 tablet Orally Onc e a day; Duration: 30 day(s) Not-Marc ing Atorvastatin Calcium 40 MG 1 tablet Orally Once a day; Duration: 30 day(s) Not-Marc ing metFORMIN HCl ER 500 MG 1 tablet with ev ening meal Orally Once a day; Duration: 30 day(s) Not-Taking amLODIPine Besylate Active Lisinopril 5 MG 1 tablet Orally Once a day Not-Taking Ammonium Lactate 12 % 1 application to affected area Externally to feet Twice a day; Duration: 30 days Active Omeprazole 20 MG Oral; Duration: 30 Active Extra Depth Orthopedic Shoes (1 Pair) with Customized Heat Molded Multidensity Innersoles (3 Pair) as directed Dx: NIDDM (E11.9), Hammertoe Foot Deformity (M20.41,M20.42), Preulcerative Skin Lesion(s) (L85.1) 08/09/2024 Active Lovastatin 40 MG 1 tablet with the evening meal Orally Once a day; Duration: 30 day(s) Not-Taking buPROPion HCl ER (SR) 150 MG 1 tablet Orally Twice a day Not-Taking vitamin Active Immunizations Vaccine Route Administration Date Status Comme nts Influenza Unknown 01/19/2017 Administered Influenza Unknown 01/04/2019 Administered Influenza Unknown 01/05/2022 Administered Influenza Unknown 02/06/2024 Administered COVID-19 Moderna Vaccine Unknown 01/15/2022 Administered 1st 07/31/20,08/30/20 03/02/21,08/13/21 Social History Tobacco Use: Social History Observation [...] Problem Acquired hammer toe of right foot (223582253072335 5) Other hammer toe(s) (acquired), right foot (M20.41) Active confirmed Problem Acquired hammer toe of left foot (674665069768454 3) Other hammer toe(s) (acquired), left foot (M20.42) Active confirmed Problem Plantar wart (24731912) Plantar wart (B07.0) Active confirmed Chronic Problem Type II diabetes mellitus without complication (617990345) Type 2 diabetes mellitus without complications (E11.9) Active confirmed Vital Signs Blood pressure diastolic 65 mm Hg 12/10/2024 Height 4ft 8in in 12/10/2024 Blood pressure systolic 128 mm Hg 12/10/2024 Weight 115 lbs 12/10/2024 BMI 25.78 kg/m2 12/10/2024 Procedures Procedure Date Ordered Date Performed Result Body Sit e 03252-Jpws Destruction, 1-14 04/12/2024 N/A 17157-Kanf Destruction, 1-08/09/2024 N/A 15319-Aarc Destruction, 1-12/10/2024 N/A Encounters Encounter Location Date Provider Diagnosis [address] [address] 04/12/2024 Enrrique Swetha Plantar wart B07.0 ; Pain in right foot M79.671 ; Pain in left foot M79.672 and Type 2 diabetes mellitus without complications E11.[address] [address] 08/09/2024 Enrrique Swetha Plantar wart B07.0 ; Pain in right foot M79.671 ; Pain in left foot M79.672 ; Type 2 diabetes mellitus without complications E11.9 ; Other hammer toe(s) (acquired), right foot M20.41 and Other hammer toe(s) (acquired), left foot M20.[address] [address] 12/10/2024 Enrrique Swetha Pain in right foot M79.671 ; Plantar wart B07.0 ; Pain in left foot M79.672 and Type 2 diabetes mellitus without complications E11.9 Assessments Encounter Date Diagnosis (ICD Code) Assessment Notes Treatment Notes Treatment Clinical Notes Section Notes 04/12/2024 Pain in right foot (ICD-10 - M79.671) 04/12/2024 Plantar wart (ICD-10 - B07.0) Chronic 08/09/2024 Pain in right foot (ICD-10 - M79.671) 08/09/2024 Plantar wart (ICD-10 - B07.0) Chronic 12/10/2024 Pain in right foot (ICD-10 - M79.671) 12/10/2024 Plantar wart (ICD-10 - B07.0) Chronic 12/10/2024 Pain in left foot (ICD-10 - M79.672) 08/09/2024 Pain in left foot (ICD-10 - M79.672) 04/12/2024 Pain in left foot (ICD-10 - M79.672) 08/09/2024 Type 2 diabetes mellitus without complications (ICD-10 - E11.9) 04/12/2024 Type 2 diabetes mellitus without complications (ICD-10 - E11.9) 12/10/2024 Type 2 diabetes mellitus without complications (ICD-10 - E11.9) 08/09/2024 Other hammer toe(s) (acquired), right foot (ICD-10 - M20.41) Patient Educated with: DIABETIC FOOT CARE INSTRUCTIONS.p df (DIABETIC FOOT CARE INSTRUCTIONS.p df) 08/09/2024 Other hammer toe(s) (acquired), left foot (ICD-10 - M20.42) Plan Of Treatment Pending Test Test Name Order Date Hemoglobin A1c 02/10/2015 X ray : Foot, right 3V 05/10/2012 02730-Sjzd Destruction, 05-2107/25/2012 48281-Pwjv Destruction, 05-2110/24/2012 13838-Usmr Destruction, 05-2101/24/2013 14634-Vbjs Destruction, -04/25/2013 83035-Ehjo Destruction, -07/11/2013 30773-Lzxi Destruction, -11/04/2013 38955-Zuum Destruction, -02/04/2014 02523-Hgun Destruction, -05/16/2014 50315-Iule Destruction, 05-2108/15/2014 01347-Vdja Destruction, 05-2111/11/2014 14029-Mklp Destruction, -02/10/2015 72687-Falz Destruction, -14 02/10/2011 29681-Ypeu Destruction, -14 05/12/2011 03299-Rmqn Destruction, 05-2108/11/2011 88566-Igng Destruction, -14 10/24/2011 48699-Cqtc Destruction, -14 01/23/2012 29013-Ajvh Destruction, -14 04/23/2012 87974-Xfth Destruction, -14 05/22/2015 87004-Xjyi Destruction, 05-2109/04/2015 82294-Yiea Destruction, 05-2101/20/2017 91317-Exii Destruction, 05-2105/19/2017 89937-Azas Destruction, 05-2108/18/2017 09117-Tcwh Destruction, 05-2112/15/2017 99769-Vskf Destruction, 05-2104/17/2018 31757-Knrb Destruction, 05-2108/14/2018 97639-Pqso Destruction, 05-2112/11/2018 22438-Fowe Destruction, 05-2104/09/2019 01687-Emis Destruction, 05-2109/24/2019 00971-Tfdg Destruction, 05-2101/28/2020 39097-Xrev Destruction, 05-2105/29/2020 25820-Bhkq Destruction, 05-2109/29/2020 16785-Efbx Destruction, 05-2101/19/2021 75445-Kuey Destruction, 05-2105/21/2021 71735-Xxop Destruction, 05-2109/24/2021 59799-Qlrv Destruction, 05-2101/28/2022 33612-Feyc Destruction, 05-2106/03/2022 56735-Tgbf Destruction, 05-2109/23/2022 06288-Zgql Destruction, 05-2101/13/2023 14695-Fnoq Destruction, 05-2105/25/2023 93907-Bwsz Destruction, 05-2112/12/2023 22567-Pgyd Destruction, 05-2104/12/2024 93199-Hrrd Destruction, 05-2108/09/2024 70214-Mtoh Destruction, 05-2112/10/2024 Next Appt Details Provider Name:Enrrique Mathias Swetha , 04/11/2025 08:45:00 AM, [address] [facility], [place], [address], Insurance Providers Payer Name Payer Address Payer Phone Subscriber Number Group Number Insured Name Patient Relationship to Insured Coverage Start Date Coverage End Date Medicare National [employer] [address] [place] [address] [id number] Goldstei n, Kavitha Self - patient is the insured [facility] [address] [place] [address] [id number] Isaias Balderas Spouse - patient is the spouse of the insured Medical (General) History Medical History History ICD Code warts mumps anemia cholesterol HTN type II diabetes Pancreatic CA Surgical History Surgery Date(Month/Year) section 1985, 1988 cholecystectomy 2004 gastric bypass 2002 R rotator cuff 04/2018 radio frequency ablation 12/07/2018 L breast biopsy 2x 11/2021 Hospitalization History Reason Date(Month/Year) [facility] Anal Hemorrhaging 03/18/2018 [facility] for passing out at a libertarian. Suffered conscussion. 11/13/2017
== END 2024-12-18 11:10 | disposition home or self-care (01) ==
LOC: HO.ENCR 10:24
PROVIDERS: Visit Provider Dietitian, Registered
DX: E13.9 Other specified diabetes mellitus without complications (principal)

== ENCOUNTER → 2024-12-18 10:23 | Outpatient (BNVA) | payer MEDICARE, BC, SELFPAY | PROVIDERS: Visit Provider Dietitian, Registered | DX: E13.9 Other specified diabetes mellitus without complications (principal); Z71.3 Dietary counseling and surveillance | CPT/HCPCS: 97803 ==